=== PATIENT | female | born 1940 | race Caucasian/White ===

== ENCOUNTER 2017-03-01 18:32 | Emergency (ER) | payer MEDICARE | END 2017-03-01 19:25 | disposition home or self-care (01) | LOC: SCSER 18:32 | DX: L97.519 Non-pressure chronic ulcer of other part of right foot with unspecified severity (principal); E66.9 Obesity, unspecified; I10 Essential (primary) hypertension; Z99.2 Dependence on renal dialysis; Z79.899 Other long term (current) drug therapy | CPT/HCPCS: 99283 ==

== ENCOUNTER 2018-08-30 12:24 | Outpatient (CLI) | payer MEDICARE ==
--- NOTE | 2018-08-30 12:42 | RAD ---
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 The patient i s status post amputation of the small toe through the metatarsal phalangeal joint. No osseous erosions are seen. Mild soft tissue swelling is seen in the fourth toe. No degenerative changes are p resent. IMPRESSION: No evidence of acute osseous abnormality.
== END 2018-08-30 12:25 | disposition home or self-care (01) ==
LOC: BICRAD 12:24
DX: L97.512 Non-pressure chronic ulcer of other part of right foot with fat layer exposed (principal)

== ENCOUNTER 2018-09-18 09:23 | Outpatient (CLI) | payer MEDICARE ==
--- NOTE | 2018-09-18 10:41 | BD ---
BONE DENSITOMETRY USING DEXA: HISTORY: Postmenopausal screening for osteoporosis. FINDINGS: Lumbar Spine: BMD (g/cm2) L1 1.047 T-Score: 0.5 Z-Score: 2.8 L2 0.977 T-Score: -0.5 Z-Score: 2.1 L3 0.904 T-Score: -1.3 Z-Score: 1.4 L4 0.833 T-Score: -2.1 Z-Score: 0.7 L1-L4 0.941 T-Score: 1.0 Z-Score: 1.6 Femoral Neck: 0.622 T-Score: -2.0 Z-Score: 0.2 Total Femur: 0.686 T-Score: -2.1 Z-Score: -0.1 The 10-year fracture risk for a major osteoporotic fracture is 9% and for a hip fracture is 4.6%. Impression: Osteopenia. POS: TPC
--- NOTE | 2018-09-18 10:48 | MMO ---
Bilateral MAMMO Bilat Diag DDI+FAVIOLA. CLINICAL HISTORY: Patient is 78 years old and is seen for diagnostic exam. The patient has the following family history of breast cancer: maternal aunt and mother, at age 58. The patient has a history of kidney cancer at age 70. The patient has a history of right Excisional Biopsy in 2000 - benign. VIEWS: The views performed were: bilateral craniocaudal with tomosynthesis; bilateral mediolateral oblique with tomosynthesis; and bilateral mediolateral. FILMS COMPARED: The present examination has been compared to prior imaging studies performed at [facility] on 11/16/2010, 11/22/2011, 01/31/2013, 07/18/2014 and 09/18/2018. MAMMOGRAM FINDINGS: There are scattered fibroglandular densities. Finding 1: There are no mammographic or sonographic abnormalities in the area of palpable concern. The patient is referred back to her clinician. Negative imaging findings should not preclude biopsy if clinical findings are suspicious. Finding 2: There is an equal density, oval mass with circumscribed margins seen in the inner region of the right breast. This is a lymph node by ultrasound. Finding 3: There are vascular calcifications seen in both breasts. IMPRESSION: FINDING 1: THERE ARE NO MAMMOGRAPHIC ABNORMALITIES IN THE AREA OF PALPABLE CONCERN. THE PATIENT IS REFERRED BACK TO HER CLINICIAN. NEGATIVE IMAGING FINDINGS SHOULD NOT PRECLUDE BIOPSY IF CLINICAL FINDINGS ARE SUSPICIOUS. A ROUTINE FOLLOW-UP MAMMOGRAM IN 1 YEAR IS RECOMMENDED. THE RESULTS OF THIS EXAM WERE SENT TO THE PATIENT. ACR BI-RADS Category 2 - Benign finding MAMMOGRAPHY NOTE: 1. A negative mammogram report should not delay a biopsy if a dominant of clinically suspicious mass is present. 2. Approximately 10% to 15% of breast cancers are not detected by mammography. 3. Adenosis and dense breasts may obscure an underlying neoplasm.
--- NOTE | 2018-09-18 10:54 | ULT ---
LIMITED RIGHT BREAST ULTRASOUND: Date: 09-18-18 Provided Clinical History: Right breast palpable abnormality. Right breast nodule. FINDINGS: Limited sonographic interrogation of the upper inner right breast was performed in the region of repo rt palpable concern. The sonographic appearance of the breast tissue in this region is normal. At the 3 o'clock position of the right breast there is an intramamillary lymph node measuring 5 mm an d corresponding to the mammogram finding. IMPRESSION: 1. BIRADS category 2 - benign findings. Intramamillary lymph node is noted corresponding to the mammo gram finding. 2. No mammographic or sonographic abnormality in the region of palpable concern. Negative imaging fin dings should not preclude further evaluation of a clinically suspicious area. The patient is referred back to her clinician in this regard. POS: OFF
== END 2018-09-18 09:24 | disposition home or self-care (01) ==
LOC: BICMAMMO 09:23
PROVIDERS: ATTEND Internal Medicine
DX: Z13.820 Encounter for screening for osteoporosis (principal); N63.12 Unspecified lump in the right breast, upper inner quadrant; M85.89 Other specified disorders of bone density and structure, multiple sites; Z80.3 Family history of malignant neoplasm of breast; Z85.528 Personal history of other malignant neoplasm of kidney
CPT/HCPCS: 76642; 77066; 77080; G0279

== ENCOUNTER 2018-12-27 11:35 | Inpatient (IN) | payer MEDICARE ==
--- NOTE | 2018-12-27 12:20 | RAD ---
RIGHT ANKEL 3 VIEWS: Date: 12/27/18 HISTORY: Injury with pain. FINDINGS: Displaced bimalleolar fractures. There is fracture of both medial and lateral malleoli with displacem ent. There is subluxation of the tibiotalar joint. IMPRESSION: Displaced bimalleolar fractures with subluxation of the tibiotalar joint. POS: TPC
--- NOTE | 2018-12-27 12:21 | RAD ---
RIGHT TIBIA AND FIBULA 2 VIEWS: Date: 12/27/18 HISTORY: Injury. FINDINGS/IMPRESSION: Displaced bimalleolar fractures are seen at the ankle and are described on dedicated ankle views. The re is subluxation of the tibiotalar joint. Proximal and mid tibia and fibula appear intact. POS: TPC
[2018-12-27 13:02] LABS: #Eosinphils 0.1 thou/uL (0.0-0.7); #Lymphocytes 0.9 thou/uL (1.20-3.40); #Monocytes 0.5 thou/uL (0.11-0.59); #Neutrophils 5.3 thou/uL (1.40-6.50); %Basophils 0.4 % (0.0-1.0); %Eosinophils 2.1 % (0.0-10.0); %Lymphocytes 13.5 % (21.0-51.0); %Monocytes 6.7 % (0.0-10.0); %Neutrophils 77.4 % (42.0-75.0); Hemoglobin 10.7 g/dL (12.0-16.0); Platelet Count 191 thou/uL (130-400); Red Blood Cell (RBC) Count 3.15 mill/uL (4.20-5.40); White Blood Cell (WBC) Count 6.9 thou/uL (4.8-10.8)
[2018-12-27 13:21] LABS: ALT (SGPT) 18 U/L (8-55); AST (SGOT) 17 U/L (5-34); Albumin 3.9 g/dL (3.4-4.8); Alkaline Phosphatase 54 U/L (40-150); Anion Gap 17 mmol/L (10-20); BUN (Urea Nitrogen) 33 mg/dL (9.8-20.1); Bilirubin, Total 0.4 mg/dL (0.2-1.2); Calc. Creatinine Clearance 0 mL/min (70-130); Calcium 9.5 mg/dL (7.8-10.44); Carbon Dioxide 31 mmol/L (23-31); Chloride 95 mmol/L (98-107); Estimated GFR-MDRD 6; Globulin 3.3 g/dL (2.4-3.5); Glucose 171 mg/dL (83-110); Potassium 4.5 mmol/L (3.5-5.1); Protein, Total 7.2 g/dL (6.0-8.3); Sodium 138 mmol/L (136-145)
[2018-12-27 13:36] LABS: INR-International Normal Ratio 1.1; PTT 20.1 SEC (22.9-36.1); Prothrombin Time 14.1 SEC (12.0-14.7)
[2018-12-27] MEDS ORDERED: Fentanyl 100 MCG/2 ML VIAL ONE ×2 (13:53→17:02)
--- NOTE | 2018-12-27 14:18 | CON ---
DATE OF CONSULTATION: 12/27/2018 This is Minnie Ge PA-C dictating a report for Gibson Narvaez MD. REQUESTING PHYSICIAN: Tran CONSULTING PHYSICIAN: Dr. Gibson Narvaez. REASON FOR CONSULTATION: Right ankle fracture. HISTORY OF PRESENT ILLNESS: This is a 78-year-old female who presented to the emergency department today after a mechanical fall at home while walking to her car. She states she was on her way to obtain an MRI of her right foot for a chronic ulcerative wound on her toe when she believes that she misstepped and her ankle rolled in causing her to fall. She was placed in a splint by EMS and brought to our facility where x-rays showed a bimalleolar ankle fracture with displacement and medial shift of the tibiotalar joint. We have been consulted for this reason. Currently at bedside the patient reports that she has been seeing Dr. Tineo for her chronic ulcerative wound to her right third toe. She is on Cipro and she is also a dialysis patient. She states she receives a dose of vancomycin at each dialysis. She denies any other injuries at the time of her fall today. No head injuries, no loss of consciousness. PAST MEDICAL HISTORY: Significant for hypertension, end-stage renal disease, on dialysis Monday, Monday, Monday. PAST SURGICAL HISTORY: Includes hysterectomy, partial nephrectomy on the right in 2007, peritoneal dialysis shunt in 2014 and hernia repair. She has a fistula in the left upper extremity. SOCIAL HISTORY: The patient says she drinks socially. Denies any tobacco use or illicit drug use. She lives at home with her . FAMILY HISTORY: Reviewed and noncontributory. REVIEW OF SYSTEMS: A 10-point review of systems conducted and otherwise negative except for stated above. PHYSICAL EXAMINATION: VITAL SIGNS: Show blood pressure of a 112/77, pulse of 75, respiratory rate of 15, temperature of 98.1, and O2 saturation of 91% on room air. GENERAL: The patient is awake and alert. She is in no apparent distress. Her is present in the ER room with her. She is pleasant and cooperative with exam findings today. HEENT: Head is normocephalic and atraumatic. NECK: Supple. Trachea midline. Breathing nonlabored. EXTREMITIES: Evaluation of the right lower extremity shows a stirrup splint intact. The patient is able to move toes. Capillary refill is 3 seconds. Sensation intact distally. There is a bandage overlying the 3rd toe. This was removed for evaluation. On the dorsum of the toe, there is an ulcerative wound. This does not appear to have a bone visible beneath it. No drainage or bleeding from this site. Remainder of extremities are evaluated and no other injuries are noted. IMAGING STUDIES: Radiographic findings: Three views of the right ankle were obtained which show a displaced bimalleolar ankle fracture with medial shift of the joint space. ASSESSMENT: Right ankle bimalleolar fracture. PLAN: The patient has been n.p.o. since 8:30 this morning. We would like to go ahead and plan for surgery this afternoon. Risks, benefits, and alternatives of surgery discussed at length with the patient today. She verbalized understanding. Postoperatively, she will be admitted to [facility] where she will go to [place] 3 surgical floor. She will work with physical and occupational therapist. She will also receive dialysis tomorrow. With regard to her chronic wound, she will continue to receive her normal wound care and antibiotics while she is inpatient with us. Job ID: [id number] [facility]
[2018-12-27] MEDS ORDERED: Ondansetron ODT 4 MG TAB PO PRN (15:16)
[2018-12-27] MEDS ORDERED: Dextrose 50% Abboject 50 ML SYRINGE SLOW IVP PRN (15:16)
[2018-12-27] MEDS ORDERED: Dextrose 5% in Water 1,000 ML IV PRN (15:16)
[2018-12-27] MEDS ORDERED: HumaLOG 300 UNITS/3 ML VIAL SC PRN (15:16)
[2018-12-27] MEDS ORDERED: PHENYLEPHRINE-NS 100 MCG/ML 10 ML SYRINGE ONE (15:37)
[2018-12-27] MEDS ORDERED: Ondansetron PF 4 MG/2 ML Vial ONE (15:37)
[2018-12-27] MEDS ORDERED: ePHEDrine 50 MG/ML VIAL ONE (15:37)
[2018-12-27] MEDS ORDERED: Lidocaine 1% PF 5 ML VIAL ONE (15:37)
[2018-12-27] MEDS ORDERED: Metoclopramide HCl 10 MG/2 ML VIAL ONE (15:37)
[2018-12-27] MEDS ORDERED: PROPOFOL 200 MG/20 ML VIAL ONE (15:37)
[2018-12-27] MEDS ORDERED: Famotidine/PF 20 mg/2ml Vial ONE (16:12)
[2018-12-27] MEDS ORDERED: ceFAZolin Sodium (SDC) 2 GM/100 ML BAG ONE (16:56)
[2018-12-27] MEDS ORDERED: Clindamycin/D5W 900 mg/50 ml Premix Bag ONE (16:57)
[2018-12-27] MEDS ORDERED: Ondansetron HCl/PF 4 MG/2 ML Vial IVP PRN (18:07)
--- NOTE | 2018-12-27 18:56 | RAD ---
Intraoperative imaging of the right ankle: 12/27/2018 COMPARISON: 12/27/2018 HISTORY: Fracture status post ORIF FINDINGS: Previously noted fractures have been treated with a lateral fibular screw and plate fixatio n as well as 2 lag screws through the medial malleolus. There is anatomic alignment at the fracture sites. IMPRESSION: ORIF as detailed above.
[2018-12-27] MEDS: Acetaminophen 1,000 MG in Premix Bag 1 BAG IVPB SCH (20:16)
[2018-12-27] MEDS: Senokot S 8.6-50 MG TAB PO SCH (21:45)
[2018-12-27] MEDS: CEFAZOLIN 2 GM, Admixture Fee 1 EACH in Sodium Chloride 0.9% 100 ML IVPB SCH (21:47)
[2018-12-27 22:59] VITALS: BMI 41.1
[2018-12-28] MEDS: Acetaminophen 1,000 MG in Premix Bag 1 BAG IVPB SCH (00:05)
--- NOTE | 2018-12-28 03:55 | PRG ---
DATE OF SERVICE: 12/28/2018 SUBJECTIVE: The patient is currently on the surgical floor. She was admitted today status post a ground level fall in which she sustained a right bimalleolar ankle fracture. This evening, she underwent open reduction and internal fixation of same. She reportedly tolerated this well. Here on the surgical floor, her pain has been controlled with nonnarcotic pain medication at this time. She is tolerating liquids and she has orders to advance as tolerated. The patient is concerned about taking certain medications due to her end-stage renal disease. OBJECTIVE: VITAL SIGNS: Stable. The patient is afebrile. GENERAL: The patient is resting comfortably in bed, appears in no distress. Her postop dressing is clean, dry, and intact. ASSESSMENT/PLAN: 1. Status post ground level fall. 2. Right ankle bimalleolar fracture, status post open reduction and internal fixation of same. 3. End-stage renal disease, plan to be evaluated by Nephrology tomorrow. The patient's normal dialysis schedule is Monday, Monday, and Monday. PLAN: Plan will be to continue supportive care. Arrange her dialysis. Begin physical and occupational therapy. We will schedule her oral pain medications. We will hold NSAIDs at this time and will schedule her 50 mg of tramadol q.8 hours p.r.n. for severe pain. Otherwise, we will continue with Tylenol. DISPOSITION: Patient's disposition will be discussed tomorrow, home versus placement to a facility. Job ID: [id number]
[2018-12-28 05:41] LABS: #Eosinphils 0.1 thou/uL (0.0-0.7); #Lymphocytes 0.8 thou/uL (1.20-3.40); #Monocytes 0.7 thou/uL (0.11-0.59); #Neutrophils 5.5 thou/uL (1.40-6.50); %Basophils 0.3 % (0.0-1.0); %Eosinophils 1.4 % (0.0-10.0); %Lymphocytes 11.4 % (21.0-51.0); %Monocytes 9.8 % (0.0-10.0); %Neutrophils 77.2 % (42.0-75.0); Hemoglobin 9.2 g/dL (12.0-16.0); Mean Corpuscular HGB CONC 32.7 g/dL (32.0-36.0); Mean Corpuscular Hemoglobin 33.4 pg (27.0-31.0); Mean Platelet Volume 7.1 fL (7.4-10.4); Platelet Count 182 thou/uL (130-400); RBC Distribution Width 14.3 % (11.5-14.5); Red Blood Cell (RBC) Count 2.76 mill/uL (4.20-5.40); White Blood Cell (WBC) Count 7.1 thou/uL (4.8-10.8)
[2018-12-28] MEDS: CEFAZOLIN 2 GM, Admixture Fee 1 EACH in Sodium Chloride 0.9% 100 ML IVPB SCH ×2 (05:44→14:55)
[2018-12-28] MEDS: Acetaminophen 500 MG TAB PO SCH ×3 (05:44→17:38)
[2018-12-28 05:59] LABS: Anion Gap 20 mmol/L (10-20); BUN (Urea Nitrogen) 42 mg/dL (9.8-20.1); Calc. Creatinine Clearance 10 mL/min (70-130); Calcium 8.7 mg/dL (7.8-10.44); Carbon Dioxide 27 mmol/L (23-31); Chloride 95 mmol/L (98-107); Estimated GFR-MDRD 5; Glucose 163 mg/dL (83-110); Potassium 4.5 mmol/L (3.5-5.1); Sodium 137 mmol/L (136-145)
--- NOTE | 2018-12-28 08:35 | HP ---
HISTORY OF PRESENT ILLNESS: This is a 78-year-old female, who comes into the ER after sustained a mechanical ground level fall at home. The patient was walking in garage and tripped over some carpet and slowly slid down on floor. She did not hit her head or body on the floor. She did hit her right ankle. After the fall, she had a lot of pain from her right ankle. The pain elevated with weight bearing. No loss of consciousness or other injury. Upon arrival in the ER, patient had GCS of 15, complained of pain on her right ankle. No other associate injury reported. Vital signs stable. PAST MEDICAL HISTORY: Chronic kidney disease on dialysis 3 times a week with Dr. Hector. PAST SURGICAL HISTORY: denied SOCIAL HISTORY: The patient stays at home with her . Smoking, denied. Alcohol, social. ALLERGIES: AMOXICILLIN AND HYDRALAZINE. THE PATIENT IS OTHERWISE HEALTHY AND ABLE TO TAKE CARE OF HERSELF ON PERSONAL CARE. REVIEW OF SYSTEMS: Noncontributory as per HPI. PHYSICAL EXAMINATION: GENERAL: The patient appeared to be mildly obese, lying down comfortably. No acute distress. Pain is minimal. LUNGS: Clear bilaterally. Breathing nonlabored. HEART: Regular rate and rhythm. No murmur. ABDOMEN: Soft, nondistended. Normal bowel sounds. EXTREMITIES: Right ankle is on splint. Upper extremity; neurovascularly intact. Range of motion is normal. Left extremity; neurovascularly intact. Range of motion is normal. NEUROLOGIC: No neurology deficits. DIAGNOSES: 1. Status post ground level fall. 2. Right ankle fracture. No neurovascular compromise. 3. Chronic kidney disease, stage 5 on dialysis 3 times a week. PLAN: The patient was seen by Orthopedic. Plan to do surgery today or tomorrow. The patient will be seen in consultation by Dr. Hector on dialysis schedule. Continue pain control. Continue DVT and gastritis prophylaxis. The patient will be admitted to the surgical floor to follow up after surgery. Job ID: [id number] [facility]
[2018-12-28] MEDS ORDERED: Pantoprazole 40 MG VIAL IVP SCH (09:00)
[2018-12-28] MEDS: EPOETIN ALFA-EPBX (ESRD) 4,000 UNIT/ML VIAL SC SCH (10:09)
--- NOTE | 2018-12-28 12:04 | OP ---
DATE OF PROCEDURE: 12/27/2018 PREOPERATIVE DIAGNOSIS: Comminuted, displaced right bimalleolar ankle fracture. POSTOPERATIVE DIAGNOSIS: Comminuted, displaced right bimalleolar ankle fracture. PROCEDURE PERFORMED: Open reduction and internal fixation of right bimalleolar ankle fracture. ANESTHESIA: General. TOURNIQUET TIME: 58 minutes at 300 mmHg. IMPLANTS: Synthes distal fibular locking plate on the lateral malleolus and two 4.0 mm partially-threaded cancellous screws for the medial malleolus. COMPLICATIONS: None. DRAINS: None. SPECIMEN: None. OUTCOME: Satisfactory. INDICATIONS FOR PROCEDURE: The patient is a 78-year-old lady, who sustained a closed right bimalleolar ankle fracture following a mechanical fall at home. Upon arrival at [facility], x-rays confirmed the fracture. After discussion with the patient including risks and benefits, we decided to proceed with open reduction and internal fixation. Informed consent has been obtained. All questions answered. DESCRIPTION OF PROCEDURE: The patient was brought to the operating room, and a time-out was performed followed by induction of general anesthesia. Next, a sterile prep and drape was performed to the right lower extremity. The limb was exsanguinated with Esmarch bandage, tourniquet was inflated to 300 mmHg. Next, a vertical incision was made overlying the distal fibula after skin was sharply incised, dissection was carried down bluntly exposing the fracture. The fracture was essentially a transverse fracture at about the level of the ankle mortise, but with severe comminution. The comminution was so significant that there really was not any significant cortical keys to aid with the reduction. As such, an indirect reduction technique was utilized. A small distal fibular locking plate was affixed to the shaft of the distal fibula with two 3.5 mm cortical screws and then the distal segment was reduced to this plate and shaft construct as confirmed with AP and lateral C-arm imaging. There appeared to be muslim of fibular length and appropriate rotation. Once appropriately positioned, a total of 4 locking screws were placed through this distal fragment and then 1 additional 2.7 mm cortical screw applied at the most proximal hole in the plate. It should be noted that bone quality was extremely poor with very significant softening of bone. Next, a vertical incision was made centered over the medial malleolus after skin was sharply incised, dissection was carried down bluntly to take care to identify and retract the saphenous vein. The medial malleolus was then reduced and held in place with a bone tenaculum, but again was found to have a very soft bone. Once appropriately positioned as determined with AP and lateral C-arm imaging, 2 partially-threaded 45 mm 4.0 cancellous screws were passed from the tip of the medial malleolus obliquely into the distal tibial metaphysis. This restored a normal appearing mortise on both AP and mortise views and normal appearing x-ray on lateral view as well with a centralized talus under the tibial plafond. Both incisions were then irrigated with bulb syringe and then closed in layers with 0 Vicryl deep followed by 2-0 Vicryl and nylon for the skin. Xeroform gauze, Webril, and trilaminar short-leg splint were applied to the leg, and then the patient was transferred to recovery room in stable condition. There were no complications. She tolerated the procedure well. Job ID: [id number]
[2018-12-28] MEDS: Senokot S 8.6-50 MG TAB PO SCH ×2 (14:00→21:35)
[2018-12-28] MEDS: Polyethylene Glycol 3350 17 GM Packet PO SCH (14:00)
[2018-12-28] MEDS: Folic Acid/Vit B Comp W-C PO SCH (14:00)
[2018-12-28] MEDS: Sevelamer Carbonate 800 MG TAB PO SCH ×2 (14:01→16:31)
--- NOTE | 2018-12-28 15:29 | CON ---
DATE OF CONSULTATION: DISCUSSION: Ms. Daniels is a 78-year-old white female with known history of ESRD and we were consulted for her maintenance hemodialysis. She is undergoing hemodialysis at the present time. We are using no heparin due to the recent surgery. She was initially admitted for her right ankle fracture. She has undergone an operative procedure of ORIF. No other complaints today. REVIEW OF SYSTEMS: No chest pain. Positive for right ankle pain. No nausea. No vomiting. No diarrhea. No shortness of breath. No chest pain. No gross hematuria. No dysuria. No urinary frequency. No headache. No syncopal episode. No productive cough. No fever or chills. MEDICATIONS: Currently on; 1. Aspirin 81 mg tablet daily. 2. Sensipar 30 mg daily. 3. Flexeril 5 mg p.o. t.i.d. p.r.n. 4. Gabapentin 300 mg daily. 5. Folic acid one tablet daily. 6. DuoNeb q.4 p.r.n. 7. Humalog sliding scale. 8. MiraLAX 17 g daily. 9. Protonix 40 mg daily. 10. Tramadol 50 mg q.8 p.r.n. PAST MEDICAL HISTORY: 1. The patient has history of ESRD - on maintenance hemodialysis secondary to diabetic nephropathy. 2. Type 2 diabetes mellitus. 3. Hypertension. 4. History of obstructive sleep apnea. 5. History of right renal cancer, in remission. PAST SURGICAL HISTORY: 1. Status post partial nephrectomy. 2. Status post cuffed dialysis catheter placement. 3. Status post PD catheter placement with subsequent removal and revision. 4. Status post AV fistula placement. 5. Status post partial nephrectomy for right renal cancer. 6. Status post hysterectomy. 7. Status post upper and lower GI endoscopies. SOCIAL HISTORY: The patient is . She is a retired teacher. Lives in [place]. Education, master's degree. Two children with one . No IV drug abuse. Status post multiple blood transfusion. Sedentary lifestyle. Alcohol rarely. No history of smoking. FAMILY HISTORY: No family history of ESRD. ALLERGIES: HYDRALAZINE AND PENICILLIN. TRAUMA: Recently status post fall with right ankle fracture. IMMUNIZATION: Up-to-date. HOSPITALIZATIONS: Please see past medical history. PHYSICAL EXAMINATION: VITAL SIGNS: Blood pressure is noted at 120/62, heart rate 72, respiratory rate 18, temperature 98.5, and pulse ox 98%. GENERAL: Awake, alert, and comfortable, not in distress. SKIN: Adequate turgor. HEENT: Pinkish conjunctivae. Anicteric sclerae. NECK: No neck mass. No carotid bruits. No JVD. CHEST: No deformities. LUNGS: Clear breath sounds. No wheezing. No crackles. HEART: Normal sinus rhythm. No murmur. No gallops. No rubs. ABDOMEN: Globular, soft, and nontender. EXTREMITIES: Trace edema. Dry surgical dressing noted on the right leg area. NEUROLOGIC: Oriented to 3 spheres. Moving all extremities. No tremors. No asterixis. No ataxia. LABORATORY DATA: On 12/28/2018: White count 7.1 and hemoglobin 9.2. Sodium 137, potassium 4.5, chloride 95, carbon dioxide 27, BUN 42, creatinine 7.79, glucose 163, and calcium 8.7. On 12/27/2018, x-ray of the ankle showed displaced bimalleolar fractures. ASSESSMENT AND PLAN: 1. End-stage renal disease, stable. We will continue current Monday, Monday, and Monday hemodialysis. We will use no heparin due to the recent surgery. Fluid removal only as tolerated. 2. Anemia. Start Epogen 7500 units subcutaneously every week. 3. Status post bimalleolar fracture - status post open reduction and internal fixation, stable, doing well. Job ID: [id number]
--- NOTE | 2018-12-28 17:36 | PRG ---
DATE OF SERVICE: 12/28/2018 SUBJECTIVE: This is a 78-year-old female, who comes into the emergency room after a fall at home sustaining right ankle fracture. She underwent ORIF of right ankle fracture yesterday. She also has a history of chronic kidney disease, on dialysis 3 times a week. This morning, the patient went for dialysis. After dialysis, the patient is doing good. She tolerated regular diet, and vitals are stable. Pain is well controlled. OBJECTIVE: GENERAL: The patient is lying down comfortably in bed, in no acute distress. VITAL SIGNS: Temperature 98, heart rate 78, respiratory rate 18, O2 saturation 97% on room air, and blood pressure 145/61. LUNGS: Clear bilaterally. HEART: Regular rate and rhythm. ABDOMEN: Soft and nondistended. Normal bowel sounds. EXTREMITIES: Right extremity is on splint, neurovascularly intact. Both upper extremities and left lower extremity; normal range of motion, neurovascularly intact. NEUROLOGIC: No focal neurological deficits. LABORATORY DATA: White count 7.1, hemoglobin 9.2. Sodium 137, potassium 4.5, creatinine 7.79, glucose 163. ASSESSMENT: 1. Status post ground level fall. 2. Right ankle fracture, status post open reduction and internal fixation of the right ankle fracture, postoperative day 1. 3. Chronic kidney disease with dialysis 3 times a week. 4. Chronic anemia on chronic kidney disease is treated with Epogen weekly. PLAN: Continue supportive care. Continue pain control. Continue DVT and gastritis prophylaxis. Continue trauma bowel regimen. Continue dialysis and follow up Dr. Hector. Job ID: [id number]
[2018-12-28] MEDS: traMADol HCl 50 MG TAB PO PRN (17:43)
[2018-12-28] MEDS: Cyclobenzaprine 10 MG TAB PO PRN (21:36)
[2018-12-29] MEDS: Acetaminophen 500 MG TAB PO SCH ×5 (00:20→23:42)
--- NOTE | 2018-12-29 02:00 | PRG ---
DATE OF SERVICE: 12/29/2018 SUBJECTIVE: The patient is currently on the surgical floor. She is status post ground level fall in which she sustained a right bimalleolar fracture. She underwent open reduction and internal fixation of the same yesterday. She reportedly tolerated that procedure well. Today was her scheduled dialysis day which she underwent, but she reports that Physical Therapy attempted to work with her after her dialysis and she was extremely weak and did not progress very far with that. Currently, the patient is tolerating a diet and her pain is controlled. OBJECTIVE: VITAL SIGNS: Stable. The patient is afebrile. GENERAL: The patient is resting comfortably in bed. She is awake, alert, and conversant, has no complaints. She is resting comfortably. Her postop dressing is clean, dry, and intact. EXTREMITIES: Neurovascularly intact. ASSESSMENT/PLAN: 1. Status post ground level fall. 2. Status post open reduction and internal fixation of right bimalleolar fracture, postop day #1. 3. Chronic kidney disease with dialysis on Monday, Monday, and Monday. 4. Chronic anemia that is being treated with Epogen. PLAN: Plan will be to continue supportive care, physical and occupational therapies. Of note, the patient and I had a very lengthy, 45-minute discussion regarding placement and rehab versus skilled facilities. The patient is adamant that she preferred to go home after having a very bad experience at a skilled facility 4 years ago. I assured her that we will make recommendations, but it is ultimately her decision and her family's decision. Job ID: [id number]
[2018-12-29 06:13] LABS: #Eosinphils 0.2 thou/uL (0.0-0.7); #Lymphocytes 0.9 thou/uL (1.20-3.40); #Monocytes 0.7 thou/uL (0.11-0.59); #Neutrophils 4.9 thou/uL (1.40-6.50); %Basophils 0.7 % (0.0-1.0); %Eosinophils 2.3 % (0.0-10.0); %Lymphocytes 13.1 % (21.0-51.0); %Monocytes 10.8 % (0.0-10.0); %Neutrophils 73.1 % (42.0-75.0); Mean Corpuscular Hemoglobin 33.1 pg (27.0-31.0); Platelet Count 176 thou/uL (130-400); RBC Distribution Width 14.3 % (11.5-14.5); Red Blood Cell (RBC) Count 2.72 mill/uL (4.20-5.40); White Blood Cell (WBC) Count 6.6 thou/uL (4.8-10.8)
[2018-12-29 06:33] LABS: Anion Gap 16 mmol/L (10-20); BUN (Urea Nitrogen) 23 mg/dL (9.8-20.1); Calc. Creatinine Clearance 14 mL/min (70-130); Calcium 8.8 mg/dL (7.8-10.44); Carbon Dioxide 27 mmol/L (23-31); Chloride 97 mmol/L (98-107); Estimated GFR-MDRD 7; Glucose 142 mg/dL (83-110); Phosphorus 4.3 mg/dL (2.3-4.7); Potassium 4.2 mmol/L (3.5-5.1); Sodium 136 mmol/L (136-145)
[2018-12-29] MEDS: Sevelamer Carbonate 800 MG TAB PO SCH ×3 (08:45→17:12)
[2018-12-29] MEDS: Folic Acid/Vit B Comp W-C PO SCH (08:46)
[2018-12-29] MEDS: Aspirin 81 mg Enteric Coated Tablet PO SCH (08:48)
[2018-12-29] MEDS: Polyethylene Glycol 3350 17 GM Packet PO SCH (08:48)
[2018-12-29] MEDS: Senokot S 8.6-50 MG TAB PO SCH ×2 (08:48→19:58)
[2018-12-29] MEDS ORDERED: Cinacalcet HCl 30 MG TAB PO SCH (09:00)
[2018-12-29] MEDS ORDERED: Gabapentin 300 MG CAP PO SCH (09:00)
--- NOTE | 2018-12-29 11:27 | PRG ---
DATE OF SERVICE: 12/29/2018 SERVICE: Renal Medicine. SUBJECTIVE: Ms. Daniels is a 78-year-old white female with ESRD and currently on maintenance hemodialysis. She tolerated dialysis yesterday. She was initially admitted for bimalleolar fracture. An ORIF was done. She is doing well. We are awaiting rehab placement. The patient denies any chest pain or shortness of breath. OBJECTIVE: VITAL SIGNS: Blood pressure 110/60, heart rate 69, respiratory rate 18, temperature 98.3, and pulse ox 97%. GENERAL: Noted to be awake, alert, comfortable, not in distress. SKIN: Adequate turgor. HEENT: She has a slightly pale conjunctivae. Anicteric sclerae. NECK: No neck mass. No carotid bruits. No JVD. CHEST: No deformities. LUNGS: Clear breath sounds. No wheezing. No crackles. HEART: Normal sinus rhythm. No murmur. No gallops. No rubs. ABDOMEN: Globular, soft, nontender. EXTREMITIES: No edema. Positive for right lower leg dressing. MEDICATIONS: Medications of December 29, 2018, were reviewed. LABORATORY DATA: Laboratories of December 29, 2018; white count 6.6, hemoglobin 9. Sodium 136, potassium 4.2, chloride 97, carbon dioxide 27, BUN 23, creatinine 5.71, glucose 142, phosphorus 4.3, magnesium 2.0, calcium 8.8. ASSESSMENT/PLAN: 1. End-stage renal disease, stable, tolerating current hemodialysis regimen. No indication for any emergent hemodialysis. Continue Monday, Monday, and Monday schedule. 2. Anemia-initiate Epogen. This was done yesterday. We will recheck CBC again. 3. Status post bimalleolar fracture-status post open reduction and internal fixation, doing well. Surgery is following for possible rehab placement. 4. Continue current management. Job ID: [id number]
--- NOTE | 2018-12-29 13:48 | PRG ---
DATE OF SERVICE: 12/28/2018 SUBJECTIVE: This is a 78-year-old female, who comes to the emergency room after a fall from home and right ankle fracture. She underwent ORIF of right ankle for fracture fixation on December 27, 2018. She got scheduled dialysis yesterday. No overnight events. The patient has been doing good. Pain is well controlled. She is tolerating regular diet. Vitals are stable. She decided to go back home, but we will schedule for rehab due to her physical difficulty and her is an 80 years old gentleman. He will think about the rehab and make decision later. OBJECTIVE: GENERAL: The patient was sitting comfortably bed, in no acute distress. VITAL SIGNS: Temperature 98, heart rate 83, respiratory rate 18, O2 saturation 92% on room air, blood pressure 158/72. LUNGS: Clear bilaterally. HEART: Regular rate and rhythm.. ABDOMEN: Soft and nondistended. Normal bowel sounds. EXTREMITIES: Right extremity is on splint, neurovascularly intact. Upper extremities and left lower extremity; normal range of motion, neurovascularly intact. NEUROLOGIC: No focal neurologic deficits. ASSESSMENT: 1. Status post ground level fall. 2. Right ankle fracture, status post open reduction and internal fixation of the right ankle fracture, postoperative day 2. 3. Chronic kidney disease, on dialysis 3 times a week. 4. Chronic anemia on chronic kidney disease, treated with Epogen weekly. PLAN: Continue supportive care. Continue pain control. Continue DVT and gastritis prophylaxis. Continue trauma bowel regimen. Continue dialysis and follow up with Dr. Hector. We will cooperate with rehab screening and case management coordinator for her displacement. Patient was seen and evaluated with Dr Rodriguez on round this morning Job ID: [id number] [facility]
[2018-12-29] MEDS: Cinacalcet HCl 30 MG TAB PO SCH (17:12)
[2018-12-29] MEDS: Gabapentin 300 MG CAP PO SCH ×2 (19:58→21:38)
[2018-12-29] MEDS: traMADol HCl 50 MG TAB PO PRN (21:38)
[2018-12-29] MEDS: Cyclobenzaprine 10 MG TAB PO PRN (21:38)
--- NOTE | 2018-12-30 00:47 | PRG ---
DATE OF SERVICE: 12/30/2018 SUBJECTIVE: The patient remains on the surgical floor. She is status post a ground level fall, in which she sustained a right bimalleolar fracture. She is postop day #2, open reduction and internal fixation of that fracture. The patient is also a dialysis patient. Yesterday, she underwent dialysis and therapy tried to work with her, but was very unsuccessful. Today, though she had a much better experience and was able to do some work with Physical and Occupational Therapy. The patient reports that her pain is controlled. She is tolerating a diet. OBJECTIVE: VITAL SIGNS: Stable. The patient is afebrile. GENERAL: The patient is resting comfortably in bed. She is awake, alert, conversant. She currently has no complaints and resting comfortably. EXTREMITIES: Her splint is clean, dry, and intact. ASSESSMENT AND PLAN: 1. Status post ground level fall. 2. Status post open reduction and internal fixation of right bimalleolar fracture, postop day #2. 3. Chronic kidney disease, on dialysis. 4. Chronic anemia, stable. Plan will be to continue supportive care. Encourage physical and occupational therapy and await Case Management to discuss placement options with the patient on Monday. Job ID: [id number]
[2018-12-30] MEDS: Acetaminophen 500 MG TAB PO SCH ×3 (05:51→17:56)
[2018-12-30] MEDS: traMADol HCl 50 MG TAB PO PRN ×2 (05:52→21:57)
[2018-12-30] MEDS: Cyclobenzaprine 10 MG TAB PO PRN ×2 (05:52→21:56)
[2018-12-30] MEDS: Sevelamer Carbonate 800 MG TAB PO SCH ×3 (08:30→17:56)
[2018-12-30] MEDS: Polyethylene Glycol 3350 17 GM Packet PO SCH (09:24)
[2018-12-30] MEDS: Folic Acid/Vit B Comp W-C PO SCH (09:24)
[2018-12-30] MEDS: Senokot S 8.6-50 MG TAB PO SCH ×2 (09:24→21:00)
[2018-12-30] MEDS: Aspirin 81 mg Enteric Coated Tablet PO SCH (09:24)
--- NOTE | 2018-12-30 11:02 | PRG ---
DATE OF SERVICE: 12/30/2018 SERVICE: Renal Medicine. SUBJECTIVE: Ms. Daniels is a 78-year-old white female with ESRD and currently on maintenance hemodialysis. She was admitted due to a fall with resultant right bimanual fracture. She has undergone surgery/ORIF. Doing well. Awaiting rehab placement. No new complaints today. No chest pain or shortness of breath. OBJECTIVE: VITAL SIGNS: Blood pressure is 146/65, heart rate 72, respiratory rate 18, temperature 98.2, and pulse ox 93%. GENERAL: Noted to be awake, alert, comfortable, not in overt distress. SKIN: Adequate turgor. HEENT: She has a slightly pale conjunctivae. Anicteric sclerae. NECK: No neck mass. No carotid bruits. No JVD. CHEST: No deformities. LUNGS: Clear breath sounds. No wheezing. No crackles. HEART: Normal sinus rhythm. No murmur. No gallops. No rubs. ABDOMEN: Globular, soft, nontender. No masses. EXTREMITIES: No edema. No deformities. Positive for right leg dressing. MEDICATIONS: Medications of December 30, 2018, reviewed. LABORATORY DATA: Laboratories of December 30, 2018; glucose 135. On December 29, 2018; sodium 136, potassium 4.2, chloride 97, carbon dioxide 27, BUN 23, creatinine 5.71, glucose 142, calcium 8.8, phosphorus 4.3, magnesium 2.0. On December 29, 2018; white count 6.6, hemoglobin 9. ASSESSMENT AND PLAN: 1. Anemia. Continue weekly Epogen. P.r.n. blood transfusion. 2. End-stage renal disease, stable. No indication for any emergent hemodialysis. Tolerating said treatment. Our plan is to reschedule her back on her regular dialysis regimen tomorrow. We are using no heparin due to the recent surgery. 3. Status post bimalleolar fracture - status post surgery/open reduction and internal fixation. Awaiting rehab evaluation and possible placement. Overall, agree with current management. Job ID: [id number]
--- NOTE | 2018-12-30 16:02 | PRG ---
DATE OF SERVICE: 12/30/2018 This is Aleksandr Mckeon PA-C dictating a report for Tristan Rodriguez DO. SUBJECTIVE: This is a 78-year-old female, who came to the emergency room after a fall at home and sustained right ankle fracture. She underwent ORIF of right ankle fracture fixation on December 27, 2018. No overnight events. She has been doing good. Pain is well controlled. She is tolerating regular diet. She has been using CPAP for her sleep apnea. [employer] Developer is working for her placement in rehabilitation facility. She is working with PT and OT. OBJECTIVE: GENERAL: The patient is sitting comfortable in bed with no acute distress. VITAL SIGNS: Temperature 98.2, heart rate 69, respiratory rate 18, O2 saturation 93% on room air, and blood pressure 114/71. LUNGS: Clear bilaterally. HEART: Regular rate and rhythm. ABDOMEN: Soft and nondistended. Normal bowel sounds. EXTREMITIES: Right extremity is on splint, neurovascularly intact. Upper extremities and left lower extremity normal range of motion, neurovascularly intact. NEUROLOGIC: No focal neurology deficits. ASSESSMENT: 1. Status post ground level fall. 2. Right ankle fracture, status post open reduction and internal fixation of right ankle fracture, postoperative day 4. 3. Chronic kidney disease, on dialysis 3 times a week. 4. Chronic anemia on chronic kidney disease, treated with Epogen weekly. 5. Sleep apnea, is on CPAP. PLAN: Continue supportive care. Continue pain control. Continue DVT and gastritis prophylaxis. Continue working with PT and OT. Continue dialysis and follow up with Dr. Hector. [employer] Developer is working for placement in rehabilitation facility. The patient was seen and evaluated with Dr. Rodriguez on round this morning. Job ID: [id number] [facility]
[2018-12-30] MEDS: Cinacalcet HCl 30 MG TAB PO SCH (17:56)
[2018-12-30] MEDS: Gabapentin 300 MG CAP PO SCH (21:00)
[2018-12-31] MEDS: Acetaminophen 500 MG TAB PO SCH ×4 (00:55→17:13)
--- NOTE | 2018-12-31 01:27 | PRG ---
DATE OF SERVICE: 12/31/2018 SUBJECTIVE: The patient is currently on the surgical floor. She is status post a ground level fall when she sustained a right bimalleolar fracture. She is postop day #3 from open reduction and internal fixation of that ankle fracture. Today, the patient reports that she did not work with Physical and Occupational Therapy as no one came to work with her. She is tolerating a diet. Her pain is controlled. She is scheduled to undergo dialysis tomorrow. She is also awaiting Case Management to discuss placement options for her also. PHYSICAL EXAMINATION: VITAL SIGNS: Stable. The patient is afebrile. GENERAL: The patient is resting comfortably in bed. She is awake, alert, conversant, has no complaints other than not being able to work with therapy today. She is tolerating a diet. She appears comfortable and in no distress. Her splint is clean, dry, and intact. ASSESSMENT: 1. Status post ground level fall. 2. Postoperative day #3 status post open reduction and internal fixation of right bimalleolar fracture. 3. Chronic kidney disease, on dialysis, scheduled for Monday, Monday, and Monday. 4. Chronic anemia, stable. PLAN: Plan will be to continue her supportive care. I have asked her nurse to pass along to the day nurse if possible to get the therapist to work with her immediately after breakfast prior to her going to dialysis. The patient is known to be extremely weak after dialysis and would not be able to benefit greatly from therapy after dialysis. Job ID: [id number]
[2018-12-31] MEDS: Aspirin 81 mg Enteric Coated Tablet PO SCH (08:34)
[2018-12-31] MEDS: Folic Acid/Vit B Comp W-C PO SCH (08:34)
[2018-12-31] MEDS: Polyethylene Glycol 3350 17 GM Packet PO SCH (08:37)
[2018-12-31] MEDS: Sevelamer Carbonate 800 MG TAB PO SCH ×3 (08:37→17:13)
[2018-12-31] MEDS: Senokot S 8.6-50 MG TAB PO SCH ×2 (08:37→21:24)
--- NOTE | 2018-12-31 09:37 | PRG ---
DATE OF SERVICE: 12/31/2018 SUBJECTIVE: Ms. Daniels is a 78-year-old white female with ESRD, who was initially admitted for a right bimalleolar fracture. She underwent a right ankle ORIF. Doing well. We are following her up for a maintenance hemodialysis. She is tolerating her current dialysis regimen. I have scheduled her for regular dialysis of 3.5 hours today. No other complaints. The patient denies any chest pain or shortness of breath. OBJECTIVE: VITAL SIGNS: Blood pressure 129/80, heart rate 68, respiratory rate 13, temperature 98, and pulse ox 92%. GENERAL: Noted to be awake, alert, and comfortable, not in distress. SKIN: Adequate turgor. HEENT: She has a slightly pale conjunctivae. Anicteric sclerae. NECK: No neck mass. No carotid bruits. No JVD. CHEST: No deformities. LUNGS: Clear breath sounds. No wheezing. No crackles. HEART: Normal sinus rhythm. No murmurs. No gallops. No rubs. ABDOMEN: Globular, soft, and nontender. No masses. EXTREMITIES: No edema. Positive for right foot dressing. MEDICATIONS: Medications of December 31, 2018, reviewed. LABORATORY DATA: Laboratories of December 29, 2018, white count 6.6, hemoglobin 9, and hematocrit 28.2. Sodium 136, potassium 4.2, chloride 97, carbon dioxide 27, BUN 23, creatinine 5.71, glucose 142, phosphorus 4.3, and magnesium 2. December 31, 2018, glucose 155. ASSESSMENT AND PLAN: 1. End-stage renal disease, stable. Continuing Monday, Monday, and Monday hemodialysis. Fluid removal only as tolerated. 2. Anemia. Continuing weekly Epogen. Recheck CBC in a.m. 3. Status post bimalleolar fracture - the patient is status post a right foot surgery/open reduction and internal fixation tolerated said surgery. Awaiting rehab placement. We will recheck CBC and basic metabolic in a.m. Job ID: [id number]
[2018-12-31] MEDS: Midodrine HCl 5 MG TAB PO PRN (12:02)
--- NOTE | 2018-12-31 12:58 | PQF ---
BRENNEN HELMSMAILE [id number] SURG B- [id number] CLINICAL DOCUMENTATION IMPROVEMENT CLARIFICATION FORM: ICD-10 Updated PLEASE DO AN ADDENDUM TO THE PROGRESS NOTE WITH ANY DOCUMENTATION UPDATES OR ADDITIONS AND CARRY THROUGH TO DC SUMMARY. THANK YOU. DATE: 12/31, 01/01, 01/02 ATTN: DR. MAILE ONEAL Please exercise your independent, professional judgment in responding to the clarification form. Clinical indicators are provided on the bottom of this form for your review. Please check appropriate box(s): BMI > 40 with associated diagnosis of: (check one) [ x ] Morbid (Severe) Obesity [ ] Due to excess calories [ ] with Alveolar Hypoventilation (Pickwickian syndrome) [ ] Overweight [ ] Obesity [ ] Other diagnosis [ ] Unable to determine In addition, please specify: Present on Admission (POA): [x ] Yes [ ] No [ ] Unable to Determine For continuity of documentation, please document condition throughout progress notes and discharge summary. Thank You. BMI < 19 Under weight 19 - 24.9 Healthy 25.0 - 29.9 Slightly Overweight 30.0 - 34.9 Obese 35.0 - 39.9 Severely Obese 40.0 and Over Morbidly Obese CLINICAL INDICATORS - SIGNS / SYMPTOMS / LABS BMI: 41.2 H&P 12/27 (DISLA): PHY EXAM: GENERAL: THE PATIENT APPEARED TO BE MILDLY OBESE RISKS: DM II HTN CHRONIC ULCER R 3RD TOE TREATMENT: NUTRITION ASSESSMENT (12/29) WOUND CARE CONSULT (12/30) THANK YOU! Erica (This form is maintained as a part of the permanent medical record) 2014 [employer]. All Rights Reserved Erica Villarreal RN, BSN [email or web address] Office: [phone] [facility]
[2018-12-31] MEDS: Cyclobenzaprine 10 MG TAB PO PRN (13:52)
[2018-12-31] MEDS: traMADol HCl 50 MG TAB PO PRN (13:53)
--- NOTE | 2018-12-31 17:45 | PRG ---
DATE OF SERVICE: 12/31/2018 SUBJECTIVE: This is a 78-year-old female, who come into the emergency room after a fall at home, sustained right ankle fracture. She underwent ORIF of right ankle fracture fixation on December 27, 2018. She reports no overnight events. She has been doing good. She went to dialysis today. Her pain is well controlled. She is tolerating regular diet. She has been using CPAP to treat her sleep apnea. tool worker is working with her on placement. Information from case management specialist shared that she might consider SNF due to personal reference. OBJECTIVE: GENERAL: This patient is lying down comfortably in bed, in no acute distress. VITAL SIGNS: Temperature 98, pulse 69, respiratory rate 14, O2 saturation 93 on room air, blood pressure 110/50. LUNGS: Clear bilaterally. HEART: Regular rate and rhythm. ABDOMEN: Soft, nondistended. Normal bowel sounds. EXTREMITIES: Right extremity is on splint and dressing is dry, clean, intact. Neurovascularly intact. NEUROLOGIC: No focal neurologic deficits. ASSESSMENT: 1. Status post ground level fall. 2. Right ankle fracture status post open reduction and internal fixation of right ankle fracture, postop day 5. 3. Chronic kidney disease, on dialysis 3 times a week. 4. Chronic anemia on chronic kidney disease, treated with Epogen weekly. 5. Sleep apnea, she is on CPAP. PLAN: Continue supportive care. Continue pain control. Continue DVT, gastritis prophylaxis. Continue to work with PT, OT. Continue dialysis and follow up with Dr. Hector. tool worker is working for placement in SNF per the patient's preference. Job ID: [id number] [facility]
[2018-12-31] MEDS: Cinacalcet HCl 30 MG TAB PO SCH (19:14)
[2018-12-31] MEDS: Gabapentin 300 MG CAP PO SCH (21:24)
[2019-01-01] MEDS: Acetaminophen 500 MG TAB PO SCH ×5 (00:02→23:28)
--- NOTE | 2019-01-01 01:42 | PRG ---
DATE OF SERVICE: SUBJECTIVE: The patient remains on the surgical floor. She is status post ground level fall, in which she sustained a right bimalleolar fracture. She has undergone open reduction and internal fixation of the same. She is slowly progressing with physical and occupational therapy due to the patient's dialysis treatment, but she is currently awaiting placement. Otherwise, she is tolerating a diet. Her pain is controlled. Her bowel function has returned. OBJECTIVE: VITAL SIGNS: Stable. The patient is afebrile. GENERAL: The patient is resting comfortably in bed. Her, her , and I had a lengthy conversation again about placement, and hopefully the Case Management team will be able to get her placed soon. The patient appears comfortable, in no distress. ASSESSMENT: 1. Status post ground level fall. 2. Status post open reduction and internal fixation of bimalleolar right ankle fracture. 3. Chronic kidney disease, on dialysis, scheduled Monday, Monday, and Monday. 4. Chronic anemia, stable. PLAN: Plan will be to continue her supportive care. Encourage physical and occupational therapy, and await final placement decision. Job ID: [id number]
[2019-01-01 07:19] LABS: #Eosinphils 0.2 thou/uL (0.0-0.7); #Lymphocytes 1.1 thou/uL (1.20-3.40); #Monocytes 0.7 thou/uL (0.11-0.59); #Neutrophils 5.1 thou/uL (1.40-6.50); %Basophils 0.5 % (0.0-1.0); %Eosinophils 3.4 % (0.0-10.0); %Lymphocytes 15.4 % (21.0-51.0); %Monocytes 9.1 % (0.0-10.0); %Neutrophils 71.6 % (42.0-75.0); Hemoglobin 9.2 g/dL (12.0-16.0); Mean Corpuscular HGB CONC 33.3 g/dL (32.0-36.0); Mean Corpuscular Hemoglobin 33.9 pg (27.0-31.0); Mean Platelet Volume 6.9 fL (7.4-10.4); Platelet Count 230 thou/uL (130-400); Red Blood Cell (RBC) Count 2.71 mill/uL (4.20-5.40); White Blood Cell (WBC) Count 7.2 thou/uL (4.8-10.8)
[2019-01-01 07:36] LABS: Anion Gap 18 mmol/L (10-20); BUN (Urea Nitrogen) 31 mg/dL (9.8-20.1); Calc. Creatinine Clearance 12 mL/min (70-130); Calcium 9.1 mg/dL (7.8-10.44); Carbon Dioxide 27 mmol/L (23-31); Chloride 98 mmol/L (98-107); Estimated GFR-MDRD 6; Glucose 111 mg/dL (83-110); Potassium 4.6 mmol/L (3.5-5.1); Sodium 138 mmol/L (136-145)
[2019-01-01] MEDS: Sevelamer Carbonate 800 MG TAB PO SCH ×3 (08:30→17:44)
[2019-01-01] MEDS: Aspirin 81 mg Enteric Coated Tablet PO SCH ×2 (09:25→20:19)
[2019-01-01] MEDS: Senokot S 8.6-50 MG TAB PO SCH ×3 (09:25→20:19)
[2019-01-01] MEDS: Folic Acid/Vit B Comp W-C PO SCH (09:26)
--- NOTE | 2019-01-01 09:28 | PRG ---
DATE OF SERVICE: 01/01/2019 SUBJECTIVE: Ms. Daniels is a 78-year-old white female, who was admitted for right ankle fracture - bimalleolar fracture and underwent an ORIF. Doing well. We are following her up for a maintenance hemodialysis. She underwent dialysis yesterday without any difficulty. She tolerated said treatment. This morning, she is feeling better. No chest pain or shortness of breath. She is also undergoing physical therapy. OBJECTIVE: VITAL SIGNS: Blood pressure is 127/61, heart rate 68, respiratory rate 16, temperature 98.5, and pulse ox 94%. GENERAL: Noted to be awake, alert, comfortable, not in distress. SKIN: Adequate turgor. HEENT: She has a slightly pale conjunctivae. Anicteric sclerae. NECK: No neck mass. No carotid bruits. No JVD. CHEST: No deformities. LUNGS: Clear breath sounds. HEART: Normal sinus rhythm. No murmur. No gallops. No rubs. ABDOMEN: Globular, soft, and nontender. No masses. EXTREMITIES: No edema. No deformities. Right foot dressing noted. MEDICATIONS: Medications of January 01, 2019, reviewed. LABORATORY DATA: Laboratories of January 01, 2019, white count 7.2 and hemoglobin 9.2. Sodium 138, potassium 4.6, chloride 98, carbon dioxide 27, BUN 31, creatinine 6.59, glucose 111, and calcium 9.1. ASSESSMENT AND PLAN: 1. End-stage renal disease, stable. Continue current hemodialysis regimen, tolerating said treatment. No indication for any acute dialysis. 2. Anemia. Continuing weekly Epogen. 3. Status post bimalleolar fracture - the patient underwent open reduction and internal fixation, doing well. 4. Awaiting rehab placement. Job ID: [id number]
[2019-01-01] MEDS: Polyethylene Glycol 3350 17 GM Packet PO SCH (09:29)
[2019-01-01] MEDS: Cinacalcet HCl 30 MG TAB PO SCH (17:43)
[2019-01-01] MEDS: Gabapentin 300 MG CAP PO SCH (20:19)
--- NOTE | 2019-01-01 21:46 | PRG ---
DATE OF SERVICE: 01/01/2019 SUBJECTIVE: The patient was seen this evening, sitting up in bed with no signs of acute distress. Nursing at bedside was changing the dressing of the chronic ulcer on her right toe. The patient did report she sees Wound Care and has seen Dr. Tineo in the outpatient basis for this wound. She was not initially concerned about the wounds during this hospital admission and was more concerned about her right ankle fracture, however, she would like us to contact Dr. Tineo as he was planning MRI for evaluation of this toe wound and she had previously been receiving vancomycin during dialysis. She would like for us to see if he would like us to continue that. Otherwise, the patient continues to work with Physical and Occupational Therapy. Eating and drinking without difficulties, having regular bowel movements and voiding minimally as she is on dialysis. She does use her CPAP at night and is pending placement at acute rehab. OBJECTIVE: VITAL SIGNS: Stable and afebrile. PULMONARY: Equal chest rise and fall. Clear breath sounds bilaterally. CARDIAC: Regular rate and rhythm. No murmurs, gallops, or rubs. EXTREMITIES: 2+ pulses in all extremities. Right lower extremity dressing is clean, dry, and intact. There is about 1.5 to 2 cm round ulcer on the patient's right fourth toe, for which she is getting dressing changes by nursing staff. ASSESSMENT: 1. Status post ground level fall. 2. Right ankle fracture status post open reduction and internal fixation. 3. Chronic kidney disease on dialysis Monday, Monday, and Monday. 4. Chronic anemia, treated with weekly Epogen. 5. Sleep apnea. PLAN: Continue supportive care and pain control as well as DVT prophylaxis. Continue working physical and occupational therapy. Continue dialysis as previously scheduled. We will ask the day trauma team to contact Dr. Tineo for further recommendations and updates for antibiotics for the patient's chronic right toe ulcer. It does not appear infected at this time, but she was previously receiving vancomycin with her dialysis. Job ID: [id number]
[2019-01-02] MEDS: Acetaminophen 500 MG TAB PO SCH ×4 (05:32→22:02)
[2019-01-02] MEDS: Sevelamer Carbonate 800 MG TAB PO SCH ×3 (08:00→17:38)
[2019-01-02] MEDS: Aspirin 81 mg Enteric Coated Tablet PO SCH ×2 (08:00→20:13)
[2019-01-02] MEDS: Polyethylene Glycol 3350 17 GM Packet PO SCH (08:00)
[2019-01-02] MEDS: Folic Acid/Vit B Comp W-C PO SCH (08:00)
[2019-01-02] MEDS: Senokot S 8.6-50 MG TAB PO SCH ×2 (08:00→20:12)
--- NOTE | 2019-01-02 08:44 | PRG ---
DATE OF SERVICE: 01/02/2019 SERVICE: Renal Medicine. SUBJECTIVE: Ms. Daniels is a 78-year-old white female with ESRD and followed up by the Renal Service for her maintenance hemodialysis. She is undergoing hemodialysis at this moment. She is tolerating said treatment. She was initially admitted due to right foot trauma, where she developed bimalleolar fracture and underwent subsequent surgery-ORIF. Doing well. Awaiting rehab placement. No complaints today. No chest pain or shortness of breath. OBJECTIVE: VITAL SIGNS: Blood pressure 109/65, heart rate 65, respiratory rate 12, temperature 98.1. GENERAL: Noted to be awake, alert, comfortable, not in distress. SKIN: Adequate turgor. HEENT: She has slightly pale conjunctivae. Anicteric sclerae. NECK: No neck mass. No carotid bruits. No JVD. CHEST: No deformities. LUNGS: Clear breath sounds. HEART: Normal sinus rhythm. No murmurs, no gallops, no rubs. ABDOMEN: Globular, soft, nontender. No masses. EXTREMITIES: No edema. No deformities. Positive for right foot dressing. MEDICATIONS: Medications of January 02, 2019, reviewed. LABORATORY DATA: Laboratories of January 01, 2019; white count 7.2, hemoglobin 9.2. January 01, 2019; sodium 138, potassium 4.6, chloride 98, carbon dioxide 27, BUN 31, creatinine 6.59, glucose 111, calcium 9.1. ASSESSMENT AND PLAN: 1. End-stage renal disease, stable. Continue current Monday, Monday, and Monday hemodialysis. Continue said treatment, tolerating said dialysis. Fluid removal only as tolerated. 2. Anemia on weekly Epogen. 3. Status post right foot trauma/bimalleolar fracture-stable, status post open reduction and internal fixation. Awaiting rehab placement. Job ID: [id number]
[2019-01-02] MEDS: traMADol HCl 50 MG TAB PO PRN (14:01)
[2019-01-02] MEDS: Cyclobenzaprine 10 MG TAB PO PRN (14:03)
--- NOTE | 2019-01-02 15:10 | PRG ---
DATE OF SERVICE: 01/02/2019 This is Susan Pearl NP dictating a report for Tristan Rodriguez DO. SUBJECTIVE: The patient was seen this evening after receiving dialysis. The patient remains on the surgical floor. The patient currently reports some increased pain to her right ankle as she missed a dose of her tramadol due to dialysis. The patient voices no other complaints at this time. The patient reports that she last saw Dr. Tineo for her chronic right toe infection on December 19. The patient was also seeing Wound Care in [place] for this chronic toe infection and was receiving vancomycin after dialysis. The patient did complete 6 weeks of this vancomycin. The patient continues to await placement to inpatient rehab. The patient's nurse reports that she did refuse her sliding scale insulin today. OBJECTIVE: VITAL SIGNS: Blood pressure 109/65, temperature 98.1, pulse 65, respirations 12, and SpO2 of 95% on room air. GENERAL: The patient is awake, alert, in no distress. Reports moderate pain. PULMONARY: Equal chest rise and fall, no respiratory distress. CARDIAC: Regular rate, regular rhythm. EXTREMITIES: 2+ pulses in all extremities. Right lower extremity with dressing clean, dry, and intact, also to right 4th toe wound. ASSESSMENT: 1. Status post ground level fall. 2. Right ankle fracture status post open reduction and internal fixation, postop day #6. 3. Chronic kidney disease, on dialysis Monday, Monday, and Monday. 4. Chronic anemia, treated weekly with Epogen. 5. Sleep apnea. 6. 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 7. History of hypertension and diabetes. PLAN: Continue supportive care and pain control. Continue DVT prophylaxis. Continue to work with Physical and Occupational Therapy. Continue dialysis on Monday, Monday, and Monday. Dr. Tineo was called about the patient's right 4th toe chronic infection and made aware that the patient is in the hospital and did not receive the MRI that he had recommended on her last visit. Dr. Tineo states that he will see the patient. I also spoke with the wound care provider that the patient has been seeing, who referred the patient to Dr. Tineo, who states that the patient did complete 6 weeks of IV vancomycin after her dialysis. The plan was discussed with Dr. Rodriguez, who agrees. Job ID: [id number]
[2019-01-02] MEDS ORDERED: HOLD VANCOMYCIN FOR LEVEL >20 FS SCH (17:00)
[2019-01-02] MEDS ORDERED: Vancomycin HCl 750 MG in Sodium Chloride 0.9% 250 ML 250 ML IVPB SCH (17:00)
[2019-01-02] MEDS ORDERED: Vancomycin HCl 1 GM in Premix Bag 1 BAG IVPB SCH (17:00)
[2019-01-02] MEDS ORDERED: Vancomycin Sliding Scale 1 EACH FS ONE (17:00)
[2019-01-02] MEDS ORDERED: Vancomycin HCl 1.25 GM in Sodium Chloride 0.9% 250 ML 250 ML IVPB SCH (17:00)
[2019-01-02] MEDS ORDERED: Vancomycin HCl 1.5 GM in Sodium Chloride 0.9% 250 ML 300 ML IVPB SCH (17:00)
[2019-01-02] MEDS: Cinacalcet HCl 30 MG TAB PO SCH (17:34)
[2019-01-02] MEDS: Gabapentin 300 MG CAP PO SCH (20:13)
[2019-01-02] MEDS: Cipro 250 MG TAB PO SCH (20:13)
[2019-01-02] MEDS ORDERED: Acetaminophen/Codeine 30-300mg Tablet PO SCH (21:00)
--- NOTE | 2019-01-02 22:07 | PRG ---
DATE OF SERVICE: SUBJECTIVE: The patient was seen today during the evening rounds sitting up at the edge of the bed. She was playing cards with her . At the time of my evaluation, the patient reported 6/10 pain that has not been adequately treated throughout the day. She reported she went to dialysis earlier this morning and did miss her dose of pain medications at her regular scheduled time. Since that time, she has not been able to achieve adequate pain control with her current regimen. OBJECTIVE: VITAL SIGNS: The patient is hemodynamically stable and afebrile. PULMONARY: Equal chest rise and fall. Clear breath sounds bilaterally. CARDIAC: Regular rate and rhythm. EXTREMITIES: 2+ pulses in all extremities. Right lower extremity dressing is clean, dry, and intact with wound dressing to her right lower extremity toe in place. ASSESSMENT: 1. Status post ground level fall. 2. Right ankle fracture, status post repair. 3. Chronic wound to right toe. 4. History of end stage renal disease, sleep apnea, diabetes, hypertension, right renal cancer, and chronic anemia. PLAN: Continue supportive care and DVT prophylaxis as previously scheduled. We will give the patient a 1 time dose of Tylenol No.3 this evening to achieve appropriate pain control as the patient is not able to rest. Dr. Tineo did see the patient today and did order vancomycin with dialysis. He did also order an MRI of the right lower extremity for further evaluation of that wound. She is pending placement in acute rehab facility. Job ID: [id number]
[2019-01-03 04:48] LABS: #Eosinphils 0.3 thou/uL (0.0-0.7); #Lymphocytes 1.8 thou/uL (1.20-3.40); #Monocytes 0.6 thou/uL (0.11-0.59); #Neutrophils 4.6 thou/uL (1.40-6.50); %Basophils 0.7 % (0.0-1.0); %Eosinophils 3.8 % (0.0-10.0); %Lymphocytes 24.5 % (21.0-51.0); %Monocytes 7.7 % (0.0-10.0); %Neutrophils 63.4 % (42.0-75.0); Hemoglobin 10.2 g/dL (12.0-16.0); Mean Corpuscular HGB CONC 33.6 g/dL (32.0-36.0); Mean Corpuscular Hemoglobin 33.6 pg (27.0-31.0); Platelet Count 200 thou/uL (130-400); RBC Distribution Width 13.9 % (11.5-14.5); Red Blood Cell (RBC) Count 3.02 mill/uL (4.20-5.40); White Blood Cell (WBC) Count 7.2 thou/uL (4.8-10.8)
[2019-01-03] MEDS: Cipro 250 MG TAB PO SCH ×2 (05:46→20:25)
[2019-01-03] MEDS: Acetaminophen 500 MG TAB PO SCH ×3 (05:46→21:05)
[2019-01-03] MEDS: Sevelamer Carbonate 800 MG TAB PO SCH ×3 (08:39→17:03)
[2019-01-03] MEDS: Aspirin 81 mg Enteric Coated Tablet PO SCH ×2 (08:42→20:24)
[2019-01-03] MEDS: Folic Acid/Vit B Comp W-C PO SCH (08:42)
[2019-01-03] MEDS: Polyethylene Glycol 3350 17 GM Packet PO SCH (08:42)
--- NOTE | 2019-01-03 08:42 | CON ---
DATE OF CONSULTATION: 01/02/2019 REASON FOR CONSULTATION: Followup of right foot osteomyelitis or possible osteomyelitis. HISTORY OF PRESENT ILLNESS: Ms. Daniels is a 78-year-old lady, history of diabetic nephropathy with end-stage renal disease, on hemodialysis through an AV fistula, whom I had seen in November when she presented with a chronic ulcer in the dorsal aspect of the right fourth toe and had a bone scan with increased uptake. We had started her on Cipro and vancomycin and then ordered an MRI to evaluate the area further. Unfortunately, on the way to the MRI, she fell and broke her right ankle and was admitted, had an open reduction and internal fixation. She has moderate pain there, but no headaches. No visual symptoms, sore throat, odynophagia, dysphagia. No cough or sputum production. No chest pain. No abdominal pain. No diarrhea. No voiding issues. PAST MEDICAL HISTORY: ESRD due to type 2 diabetes with hemodialysis as a modality of treatment through an AV fistula, hypertension, BECKY, renal cancer in remission after resection, chronic right foot ulcer, possible osteomyelitis, prior peritoneal dialysis catheter placement and removal, AV fistula placement, hemodialysis catheter placement and removal. ALLERGIES: HYDRALAZINE, PENICILLIN. SOCIAL HISTORY: Retired. FAMILY HISTORY: unremarkable CURRENT MEDICATIONS: 1. Tylenol. 2. DuoNeb. 3. Ecotrin. 4. Sensipar. 5. Flexeril. 6. Dextrose. 7. Epoetin. 8. Gabapentin. 9. Insulin. 10. Midodrine. 11. Pantoprazole. 12. Tramadol. 13. Vitamin B. PHYSICAL EXAMINATION: VITAL SIGNS: Essentially normal. EXTREMITIES: She has the right lower extremity with a splint and dressed, and the right fourth toe has the dorsal ulcer round-shaped about 0.3 cm and a little bit of discoloration surrounding it. The toes mildly swollen. There is no lymphadenopathy. HEENT: Noncontributory. LUNGS: Clear. HEART: S1, S2. Regular rate. No S3 or S4. ABDOMEN: Soft, not distended. No bladder distention. : She does not void, does not have significant urine output. NEURO: Not focal. Cognitive function appears to be normal. LABORATORY DATA: Sodium 138, creatinine 6.59. Liver profile normal. Albumin 3.9. LABORATORY DATA: White cell count 7.2, hemoglobin 9.2, platelets 230, 71% neutrophils. INR 1.1. IMAGING DATA: There is a tibia-fibula x-ray with a displaced bimalleolar fractures and the ankle x-ray. ASSESSMENT: 1. Type 2 diabetes with end-stage renal disease. 2. Chronic ulcer, dorsal aspect of the right fourth toe with positive uptake on bone scan. 3. Fracture of right ankle, bimalleolar. DISCUSSION: We will perform the MRI while she is in the hospital to assess the right fourth toe. If there are positive findings, then we will continue Cipro and vancomycin sliding scale through dialysis. If not, then discontinue antimicrobial therapy. She has been receiving treatment already since I saw her at the end of November. She has received probably around 2 weeks approximately of therapy thus far. So we would have another 4 weeks to go if we decide to continue it depending on MRI findings. Job ID: [id number] MTDD
[2019-01-03] MEDS: traMADol HCl 50 MG TAB PO PRN ×2 (08:48→21:06)
[2019-01-03] MEDS: Senokot S 8.6-50 MG TAB PO SCH ×2 (08:48→20:24)
--- NOTE | 2019-01-03 09:16 | PRG ---
DATE OF SERVICE: 01/03/2019 SUBJECTIVE: Ms. Daniels is a 78-year-old white female, who came in with bimalleolar fracture, underwent ORIF and we are following her up for maintenance hemodialysis. She is doing well from a dialysis point of view. She received dialysis yesterday without any difficulty. No new complaints. No chest pain or shortness of breath. OBJECTIVE: VITAL SIGNS: Blood pressure 114/65, heart rate 68, respiratory rate 16, temperature 98 and pulse ox 95%. GENERAL: Awake, alert, sitting comfortable, obese, not in distress. SKIN: Adequate turgor. HEENT: She has pinkish conjunctivae. Anicteric sclerae. No neck mass. No carotid bruits. No JVD. CHEST: No deformities. LUNGS: Clear breath sounds. HEART: Normal sinus rhythm. No murmur. No gallops. No rubs. ABDOMEN: Globular, soft, nontender. No masses. EXTREMITIES: No edema. No deformities. She has a right leg dressing. MEDICATIONS: Medications of January 03, 2019, reviewed. LABORATORY DATA: Of January 03, 2019; white count 7.2, hemoglobin 10.2. January 01, 2019; potassium 4.6, BUN 31, creatinine 6.59, calcium 9.1. ASSESSMENT AND PLAN: 1. End-stage renal disease, stable. We will continue current hemodialysis regimen. No changes to be made with the current dialysis regimen. Fluid removal is being tolerated. 2. Anemia, continuing weekly Epogen. 3. Status post bimalleolar fracture/status post open reduction internal fixation, awaiting placement. Job ID: [id number]
--- NOTE | 2019-01-03 10:41 | PRG ---
DATE OF SERVICE: 01/03/2019 SUBJECTIVE: Neema is postop day #7 from a right ankle bimalleolar fracture open reduction and internal fixation. Her pain has improved, and her splint currently fits well. She has no complaints of discomfort or pain to speak of. PHYSICAL EXAMINATION: Splint is dry, intact. She is neurovascularly intact in all digits with full digital excursion. Good sensation in all digits. No strike through or bleeding is identified. IMPRESSION: A 78-year-old female, postop day #7, right ankle open reduction and internal fixation for a bimalleolar fracture. PLAN: Continue current care. Continue strict nonweightbearing and follow up in clinic for cast removal and staple removal within 5 to 7 days of discharge. Job ID: [id number]
--- NOTE | 2019-01-03 16:03 | MRI ---
MRI Lower Ext No Jt Rt WO Con History: Osteomyelitis. Comparison: Radiograph August 30, 2018 Findings: Bones: On the T1 weighted imaging sequence there are no foci of marrow signal replacement t o suggest osteomyelitis. No significant edema. 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 There are midfoot degenerative changes. Soft tissues: Soft tissue swelling along the second and third toes along the distal phalanges suggest ing cellulitis. There is also abnormal edema and adventitial bursa formation along the plantar aspect of the great toe metatarsal phalangeal joint. Muscles: Significant muscle atrophy. Impression: No evidence of osteomyelitis. Extensive chronic findings.
--- NOTE | 2019-01-03 16:16 | PRG ---
DATE OF SERVICE: 01/03/2019 SUBJECTIVE: This is a 78-year-old female, who remains on the surgical floor. The patient reports no overnight events. The patient reports a good appetite and voices no concerns at this time. The patient's pain is well controlled at this time. The patient states she is ready to work with Physical Therapy today. OBJECTIVE: VITAL SIGNS: Temperature 98.0, pulse 68, respirations 16, SpO2 of 95% on room air, and blood pressure 110/65. GENERAL: The patient awake and alert, in no distress, sitting up in the chair. PULMONARY: Equal chest rise and fall, in no respiratory distress. CARDIAC: Regular rate and regular rhythm. EXTREMITIES: 2+ pulses in all extremities. Right lower extremity dressing clean, dry, and intact. Also, right fourth toe wound dressing intact. ASSESSMENT: 1. Status post ground level fall. 2. Right ankle fracture postop day #6, open reduction and internal fixation. 3. Chronic kidney disease on dialysis Monday, Monday, and Monday. 4. Chronic anemia, treated weekly with Epogen. 5. Sleep apnea. 6. Chronic right fourth toe infection. 7. History of hypertension and diabetes. PLAN: Continue supportive care and pain control. Continue to have the patient work with Physical and Occupational Therapy. The patient is pending placement to inpatient rehab. The patient was examined with Dr. Rodriguez this morning during rounds. Job ID: [id number]
[2019-01-03] MEDS: Cinacalcet HCl 30 MG TAB PO SCH (17:33)
[2019-01-03] MEDS: Gabapentin 300 MG CAP PO SCH (20:24)
--- NOTE | 2019-01-04 01:30 | PRG ---
DATE OF SERVICE: 01/03/2019 SUBJECTIVE: The patient was seen today during evening rounds. She was lying in bed with no signs of acute distress. She reported that her pain was much better controlled today and she had a general overall better day. She had no complaints or concerns at the time of my evaluation. OBJECTIVE: VITAL SIGNS: The patient is afebrile, and hemodynamically stable. GENERAL: Well-appearing elderly female, sitting up in bed with no signs of acute distress. PULMONARY: Equal chest rise and fall. Clear breath sounds bilaterally. No signs of acute respiratory distress. CARDIAC: Regular rate and rhythm. ABDOMEN: Soft, nontender, nondistended. EXTREMITIES: Gross motor and sensation are intact. Right lower extremity, with splint in place that is clean, dry, and intact. Gross motor and sensation are intact. NEURO: GCS is 15. Gross motor and sensation are intact. ASSESSMENT: 1. Status post mechanical fall from standing. 2. Chronic right toe wound. 3. History of end-stage renal disease, on dialysis, sleep apnea, diabetes, hypertension, right renal cancer, and chronic anemia. PLAN: The patient's pain is much better controlled today. We will continue with current regimen. She is pending placement in acute rehab. She is set to complete dialysis again tomorrow. Job ID: [id number]
[2019-01-04 07:28] LABS: #Eosinphils 0.2 thou/uL (0.0-0.7); #Lymphocytes 1.7 thou/uL (1.20-3.40); #Monocytes 0.4 thou/uL (0.11-0.59); #Neutrophils 4.1 thou/uL (1.40-6.50); %Basophils 0.5 % (0.0-1.0); %Eosinophils 3.5 % (0.0-10.0); %Lymphocytes 25.9 % (21.0-51.0); %Monocytes 6.6 % (0.0-10.0); %Neutrophils 63.4 % (42.0-75.0); Hemoglobin 9.1 g/dL (12.0-16.0); Mean Corpuscular HGB CONC 32.9 g/dL (32.0-36.0); Mean Corpuscular Hemoglobin 32.9 pg (27.0-31.0); Mean Platelet Volume 6.8 fL (7.4-10.4); Platelet Count 225 thou/uL (130-400); RBC Distribution Width 13.9 % (11.5-14.5); Red Blood Cell (RBC) Count 2.75 mill/uL (4.20-5.40); White Blood Cell (WBC) Count 6.4 thou/uL (4.8-10.8)
[2019-01-04 07:40] LABS: Albumin 3.5 g/dL (3.4-4.8); Anion Gap 20 mmol/L (10-20); BUN (Urea Nitrogen) 49 mg/dL (9.8-20.1); BUN/Creatinine Ratio 6.05; Calc. Creatinine Clearance 10 mL/min (70-130); Calcium 8.6 mg/dL (7.8-10.44); Carbon Dioxide 25 mmol/L (23-31); Chloride 97 mmol/L (98-107); Estimated GFR-MDRD 5; Glucose 105 mg/dL (83-110); Potassium 4.2 mmol/L (3.5-5.1); Sodium 138 mmol/L (136-145)
[2019-01-04 07:47] LABS: Vancomycin, Random 7.2 ug/mL (See Comment)
[2019-01-04] MEDS: Cipro 250 MG TAB PO SCH ×3 (08:05→20:28)
[2019-01-04] MEDS: Acetaminophen 500 MG TAB PO SCH ×4 (08:05→20:28)
[2019-01-04] MEDS: Midodrine HCl 5 MG TAB PO PRN (09:00)
--- NOTE | 2019-01-04 10:35 | PRG ---
DATE OF SERVICE: 01/04/2019 SUBJECTIVE: Ms. Daniels is a 78-year-old white female with ESRD and was admitted for bimalleolar fracture and underwent a right ORIF. She is currently undergoing dialysis. Tolerating said treatment. Using no heparin as much as possible due to the recent surgery. OBJECTIVE: VITAL SIGNS: Blood pressure 124/69, heart rate 66, respiratory rate 16, temperature 98.3, and pulse ox 94%. GENERAL: Noted to be awake, alert, comfortable, not in distress. SKIN: Adequate turgor. HEENT: She has slightly pale conjunctivae. Anicteric sclerae. NECK: No neck mass. No carotid bruits. No JVD. CHEST: No deformities. LUNGS: Clear breath sounds. No wheezing. No crackles. HEART: Normal sinus rhythm. No murmur. No gallops. No rubs. ABDOMEN: Globular, soft, and nontender. No masses. EXTREMITIES: No edema. Positive for right leg dressing. MEDICATIONS: Medications of January 04, 2019, reviewed. LABORATORY DATA: Laboratories of January 04, 2019, white count 6.4 and hemoglobin 9.1. Sodium 138, potassium 4.2, chloride 97, carbon dioxide 25, BUN 49, creatinine 8.1, glucose 105, and phosphorus is 6.0. ASSESSMENT AND PLAN: 1. Hyperphosphatemia. Continuing current Renvela dose. 2. End-stage renal disease, stable. We will continue current hemodialysis regimen. Tolerating said treatment. 3. Anemia. Continuing weekly Epogen. 4. Status post bimalleolar fracture - status post right open reduction and internal fixation, doing well. Awaiting rehab placement. Job ID: [id number]
[2019-01-04] MEDS: traMADol HCl 50 MG TAB PO PRN (11:32)
[2019-01-04] MEDS: Sevelamer Carbonate 800 MG TAB PO SCH ×4 (11:33→17:05)
[2019-01-04] MEDS: Folic Acid/Vit B Comp W-C PO SCH ×3 (11:34→11:44)
[2019-01-04] MEDS: Aspirin 81 mg Enteric Coated Tablet PO SCH ×2 (11:35→20:29)
[2019-01-04] MEDS: Senokot S 8.6-50 MG TAB PO SCH ×3 (11:36→20:35)
[2019-01-04] MEDS: Polyethylene Glycol 3350 17 GM Packet PO SCH (11:37)
[2019-01-04] MEDS: EPOETIN ALFA-EPBX (ESRD) 4,000 UNIT/ML VIAL SC SCH (12:20)
[2019-01-04] MEDS ORDERED: Cipro 250 MG TAB PO SCH (12:30)
[2019-01-04] MEDS: Cinacalcet HCl 30 MG TAB PO SCH (17:05)
[2019-01-04] MEDS: Gabapentin 300 MG CAP PO SCH (20:29)
[2019-01-05] MEDS: Acetaminophen 500 MG TAB PO SCH ×3 (03:57→20:06)
[2019-01-05] MEDS: Sevelamer Carbonate 800 MG TAB PO SCH ×3 (08:38→17:01)
[2019-01-05] MEDS: Folic Acid/Vit B Comp W-C PO SCH (08:39)
[2019-01-05] MEDS: Aspirin 81 mg Enteric Coated Tablet PO SCH ×2 (08:39→20:06)
[2019-01-05] MEDS: Senokot S 8.6-50 MG TAB PO SCH ×2 (08:40→20:08)
[2019-01-05] MEDS: Polyethylene Glycol 3350 17 GM Packet PO SCH (08:40)
[2019-01-05] MEDS: traMADol HCl 50 MG TAB PO PRN ×2 (08:54→21:05)
--- NOTE | 2019-01-05 10:58 | PRG ---
DATE OF SERVICE: 01/04/2019 SUBJECTIVE: The patient was seen this evening during rounds. She reported today she had pain during dialysis because she again missed the dose of her pain medications, but since that time, she has received her medications and now her pain is well controlled. Continues to tolerate her diet and work with Physical and Occupational Therapy. OBJECTIVE: VITAL SIGNS: The patient is afebrile, hemodynamically stable. PULMONARY: Equal chest rise and fall. Clear breath sounds bilaterally. No signs of acute respiratory distress. CARDIAC: Regular rate and rhythm. ABDOMEN: Soft, nontender, nondistended. EXTREMITIES: 2+ pulses in all extremities. No significant swelling noted. Right lower extremity with splint that is in place and clean, dry, and intact. NEUROLOGIC: GCS is 15. Gross motor and sensation are intact. ASSESSMENT: 1. Status post mechanical fall from standing. 2. Right ankle fracture. 3. History of chronic right toe wound, end-stage renal disease, on dialysis, sleep apnea, diabetes, hypertension, right renal cancer, and chronic anemia. PLAN: Continue current diet and pain regimen. Continue Physical and Occupational Therapy. Continue Monday, Monday, Monday dialysis under the direction of Dr. Hector. She is pending placement in acute rehab at this time. Job ID: [id number]
--- NOTE | 2019-01-05 11:06 | PRG ---
DATE OF SERVICE: 01/05/2019 SUBJECTIVE: Ms. Daniels is a 78-year-old white female, who was admitted for bimalleolar fracture, underwent right ORIF and followed up by the [facility] for her maintenance hemodialysis. She is doing well with her dialysis. She tolerated the treatment yesterday. Fluid removal is being tolerated. No new complaints today. No chest pain or shortness of breath. She feels that she is getting a little stronger. OBJECTIVE: VITAL SIGNS: Blood pressure is 147/50, heart rate 61, respiratory rate 16, temperature 98.1 and pulse ox 97%. GENERAL: Noted to be awake, alert, comfortable, not in overt distress. SKIN: Adequate turgor. HEENT: She has a slightly pale conjunctivae. Anicteric sclerae. No neck mass. No carotid bruits. No JVD. CHEST: No deformities. LUNGS: Clear breath sounds. HEART: Normal sinus rhythm. No murmurs, gallops, or rubs. ABDOMEN: Globular, soft, nontender. No masses. EXTREMITIES: No edema. Positive for right foot dressing. MEDICATIONS: Medications of January 05, 2019, was reviewed. LABORATORY DATA: Of January 04, 2019; white count 6.4, hemoglobin 9.1. Sodium 138, potassium 4.2, chloride 97, carbon dioxide 25, BUN 49, creatinine 8.1, and phosphorus 6.0. ASSESSMENT AND PLAN: 1. End-stage renal disease, stable. Continuing Monday, Monday, and Monday dialysis. Tolerating said treatment. Fluid removal only as tolerated. 2. Anemia, continuing weekly Epogen. 3. Hyperphosphatemia, continuing use of phosphate binders, currently on Renvela 800 mg 2 tablets t.i.d. with meals. 4. Status post bimalleolar fracture - status post open reduction internal fixation. Still awaiting rehab placement. Job ID: [id number]
--- NOTE | 2019-01-05 13:55 | PRG ---
DATE OF SERVICE: 01/05/2019 SUBJECTIVE: This is a 78-year-old female, who remains on the surgical floor, status post ORIF of right bimalleolar fracture. The patient did receive her dialysis yesterday and tolerated her treatment well. The patient had no overnight events. The patient reports that she continues to progress daily with physical therapy. OBJECTIVE: VITAL SIGNS: Temperature 98.1, pulse 61, respirations 16, SpO2 of 97% on room air, blood pressure 147/50. GENERAL: The patient is awake and alert, in no distress. PULMONARY: Equal chest rise and fall of chest. No respiratory distress. CARDIAC: Regular rate, regular rhythm. EXTREMITIES: No edema. Right lower extremity splinted. IMPRESSION: 1. Status post ground level fall. 2. Right ankle fracture, postop day #8, open reduction and internal fixation. 3. End-stage renal disease . 4. Chronic anemia, treated weekly with Epogen. 5. Sleep apnea. 6. Chronic fourth toe infection. 7. History of hypertension and diabetes. PLAN: Continue supportive care and pain control. Continue to have the patient work with physical and occupational therapy. The patient is pending placement to [facility] as she was denied placement to inpatient rehab. Plan was discussed with the patient, who agrees. The plan was also discussed with the attending, who agrees. Job ID: [id number]
[2019-01-05] MEDS: Cinacalcet HCl 30 MG TAB PO SCH (17:01)
[2019-01-05] MEDS: Cipro 250 MG TAB PO SCH (20:06)
[2019-01-05] MEDS: Gabapentin 300 MG CAP PO SCH (20:06)
--- NOTE | 2019-01-05 22:46 | PRG ---
DATE OF SERVICE: SUBJECTIVE: Patient was seen today during the evening rounds. She reported pain was well controlled and she feels like she is able to get up out of the wheelchair and into the bed more easily. However, she still requires significant assistance. OBJECTIVE: VITAL SIGNS: Patient is afebrile, hemodynamically stable. She is resting comfortably on room air. GENERAL: Well-appearing elderly female, sitting up at edge of bed with no signs of acute distress. PULMONARY: Equal chest rise and fall. No signs of acute respiratory distress. CARDIAC: Regular rate and rhythm. EXTREMITIES: 2+ pulses in all extremities. No significant swelling noted. Right lower extremity with splint that is in place, clean and dry. NEUROLOGIC: GCS is 15. ASSESSMENT: 1. Status post mechanical fall. 2. Right ankle fracture. 3. Chronic right toe wound. 4. History of end-stage renal disease, sleep apnea, diabetes, hypertension, right renal cancer, and chronic anemia. PLAN: Continue current diet and pain regimen. Continue current schedule for dialysis. Patient is pending placement in acute rehab facility. Job ID: [id number]
[2019-01-06] MEDS: Acetaminophen 500 MG TAB PO SCH ×3 (04:22→20:28)
[2019-01-06] MEDS: Cipro 250 MG TAB PO SCH ×2 (06:03→20:29)
[2019-01-06] MEDS: Aspirin 81 mg Enteric Coated Tablet PO SCH ×2 (08:25→20:29)
[2019-01-06] MEDS: Folic Acid/Vit B Comp W-C PO SCH (08:26)
[2019-01-06] MEDS: Polyethylene Glycol 3350 17 GM Packet PO SCH (08:26)
[2019-01-06] MEDS: Senokot S 8.6-50 MG TAB PO SCH ×2 (08:26→20:32)
[2019-01-06] MEDS: Sevelamer Carbonate 800 MG TAB PO SCH ×3 (08:27→16:20)
[2019-01-06] MEDS: traMADol HCl 50 MG TAB PO PRN ×2 (08:56→20:30)
--- NOTE | 2019-01-06 11:47 | PRG ---
DATE OF SERVICE: 01/06/2019 SUBJECTIVE: Ms. Daniels is a 78-year-old white female with ESRD - followed by the [facility] for maintenance hemodialysis, initially admitted for a bimalleolar fracture, status post right ORIF and currently doing well. No new complaints today. No chest pain or shortness of breath. She underwent dialysis last Monday and tolerated said treatment. OBJECTIVE: VITAL SIGNS: Blood pressure is noted at 136/54, heart rate 62, respiratory rate 16, temperature 97.5, and pulse ox 97% on room air. GENERAL: Awake, alert, sitting comfortable, not in distress. SKIN: Adequate turgor. HEENT: She has a slightly pale conjunctivae. Anicteric sclerae. NECK: No neck mass. No carotid bruits. No JVD. CHEST: No deformities. LUNGS: Clear breath sounds. HEART: Normal sinus rhythm. No murmur. No gallops. No rubs. ABDOMEN: Globular, soft, and nontender. No masses. EXTREMITIES: No edema. Positive for right foot dressing. MEDICATIONS: Medications of January 06, 2019, reviewed. LABORATORY DATA: Laboratories of January 04, 2019; white count 6.4, hemoglobin 9.1. Sodium was noted at 138, potassium 4.2, chloride 97, carbon dioxide 25, BUN 49, creatinine 8.1, and phosphorus 6.0. ASSESSMENT AND PLAN: 1. End-stage renal disease, stable. Continue current Monday, Monday, and Monday hemodialysis. There is no indication for any acute dialytic intervention at the present time. The patient is euvolemic. 2. Anemia - continuing Epogen, weekly dosing is given. 3. Status post bimalleolar fracture - status post open reduction and internal fixation. Continuing current management. Awaiting rehab placement. 4. We will recheck basic metabolic and CBC in a.m. Job ID: [id number]
[2019-01-06] MEDS: Cinacalcet HCl 30 MG TAB PO SCH (16:19)
[2019-01-06] MEDS: Gabapentin 300 MG CAP PO SCH (20:29)
--- NOTE | 2019-01-06 20:29 | PRG ---
DATE OF SERVICE: 01/06/2019 SUBJECTIVE: This is a 78-year-old female, who remains on the surgical floor, status post ORIF of right bimalleolar fracture. The patient had no overnight events. The patient voices no complaints at this time. The patient reports her pain is well controlled, and she is progressing with physical therapy. The patient reports that her hoa were removed, and her bandage was redone by Orthopedics earlier today. OBJECTIVE: VITAL SIGNS: Temperature 97.5, pulse 62, respirations 16, SpO2 of 97% on room air, and blood pressure 136/54. IMPRESSION: 1. Status post ground level fall. 2. Right ankle fracture postop day #9, open reduction and internal fixation. 3. End-stage renal disease, on dialysis. 4. Chronic anemia, treated weekly with Epogen. 5. Sleep apnea. 6. Chronic fourth toe infection. 7. History of hypertension and diabetes. PLAN: Continue supportive care and pain control. Continue physical and occupational therapy. Continue dialysis as scheduled. Pending placement to [facility] for continued physical therapy. The plan has been discussed with the patient, who agrees. Job ID: [id number]
--- NOTE | 2019-01-07 03:12 | PRG ---
DATE OF SERVICE: 01/07/2019 The patient is hospital day 11 status post mechanical fall with a right ankle fracture. She also has a chronic right toe wound. The patient has end-stage renal disease and is on dialysis, Monday, Monday, and Monday. She has had no acute events today and is hemodynamically stable, saturating 95% on room air. The patient is pending placement in acute rehab and continues to receive hemodialysis. Chronic right toe wound seems to be improving. She is receiving Cipro and vancomycin per the recommendations of Dr. Tineo of Infectious Disease. She is ready for discharge at this time. Job ID: [id number]
[2019-01-07] MEDS: Acetaminophen 500 MG TAB PO SCH ×2 (04:10→12:52)
[2019-01-07] MEDS: Cipro 250 MG TAB PO SCH (06:15)
[2019-01-07 08:17] LABS: Vancomycin, Random 11.9 ug/mL (See Comment)
[2019-01-07 08:18] LABS: Anion Gap 21 mmol/L (10-20); BUN (Urea Nitrogen) 53 mg/dL (9.8-20.1); Calc. Creatinine Clearance 9 mL/min (70-130); Calcium 8.4 mg/dL (7.8-10.44); Carbon Dioxide 22 mmol/L (23-31); Chloride 99 mmol/L (98-107); Estimated GFR-MDRD 4; Glucose 133 mg/dL (83-110); Potassium 4.4 mmol/L (3.5-5.1); Sodium 138 mmol/L (136-145)
[2019-01-07 08:27] LABS: #Basophils 0.1 thou/uL (0.0-0.2); #Eosinphils 0.2 thou/uL (0.0-0.7); #Lymphocytes 1.4 thou/uL (1.20-3.40); #Monocytes 0.4 thou/uL (0.11-0.59); #Neutrophils 5.3 thou/uL (1.40-6.50); %Basophils 0.7 % (0.0-1.0); %Eosinophils 2.4 % (0.0-10.0); %Lymphocytes 19.5 % (21.0-51.0); %Monocytes 4.9 % (0.0-10.0); %Neutrophils 72.5 % (42.0-75.0); Hemoglobin 9.4 g/dL (12.0-16.0); Mean Corpuscular HGB CONC 34.1 g/dL (32.0-36.0); Mean Corpuscular Hemoglobin 34.1 pg (27.0-31.0); Platelet Count 249 thou/uL (130-400); RBC Distribution Width 13.7 % (11.5-14.5); Red Blood Cell (RBC) Count 2.77 mill/uL (4.20-5.40); White Blood Cell (WBC) Count 7.4 thou/uL (4.8-10.8)
--- NOTE | 2019-01-07 08:55 | PRG ---
DATE OF SERVICE: 01/07/2019 SUBJECTIVE: Ms. Daniels is a 78-year-old white female with ESRD, followed by the [facility] for her maintenance hemodialysis. She was admitted due to a bimalleolar fracture - underwent a right ORIF. Doing well. She is currently undergoing dialysis. Tolerating said treatment. OBJECTIVE: VITAL SIGNS: Blood pressure is 125/62, heart rate 67, respiratory rate 16, temperature 97.9, and pulse ox 95%. GENERAL: Awake, alert, comfortable, not in distress. SKIN: Adequate turgor. HEENT: Pinkish conjunctivae. Anicteric sclerae. NECK: No neck mass. No carotid bruits. No JVD. CHEST: No deformities. LUNGS: Clear breath sounds. HEART: Normal sinus rhythm. No murmur. No gallops. No rubs. ABDOMEN: Globular, soft, and nontender. No masses. EXTREMITIES: No edema. Positive for right leg dressing. MEDICATIONS: Medications of January 07, 2019, reviewed. LABORATORY DATA: Laboratories of January 07, 2019; white count 7.4, hemoglobin 9.4, and hematocrit 27.7. Sodium 139, potassium 4.4, chloride 99, carbon dioxide 22, BUN 53, creatinine 8.86, glucose 133, and calcium 8.4. ASSESSMENT AND PLAN: 1. End-stage renal disease, stable. We will continue current hemodialysis regimen. Fluid removal as tolerated. Attempting 3.5 L fluid removal today. 2. Anemia, continuing weekly Epogen. Tolerating said medication. 3. Status post bimalleolar fracture - status post right ankle open reduction and internal fixation. Doing well. Awaiting rehab placement. Overall, agree with current management. Job ID: [id number]
[2019-01-07] MEDS: Midodrine HCl 5 MG TAB PO PRN (09:24)
[2019-01-07] MEDS: traMADol HCl 50 MG TAB PO PRN (09:25)
[2019-01-07] MEDS: Aspirin 81 mg Enteric Coated Tablet PO SCH (12:50)
[2019-01-07] MEDS: Folic Acid/Vit B Comp W-C PO SCH (12:54)
[2019-01-07] MEDS: Senokot S 8.6-50 MG TAB PO SCH (12:54)
[2019-01-07] MEDS: Sevelamer Carbonate 800 MG TAB PO SCH (12:54)
[2019-01-07] MEDS: Polyethylene Glycol 3350 17 GM Packet PO SCH (12:54)
[2019-01-07 13:18] VITALS: TEMP 97.5
[2019-01-07 15:21] VITALS: BP 124/64
--- NOTE | 2019-01-08 03:49 | DIS ---
DATE OF ADMISSION: 12/27/2018 DATE OF DISCHARGE: 01/07/2019 This is Susan Pearl NP dictating a report for Tristan Rodriguez DO. DISCHARGE ATTENDING: Tristan Rodriguez DO CONSULTS: 1. Orthopedic Surgery. 2. Dr. Tineo, Infectious Disease. 3. Dr. Hector, Nephrology. PROCEDURES: 1. On 12/27/2018, ankle x-ray, impression, displaced bimalleolar fractures. 2. On 12/27/2018, open reduction and internal fixation of right bimalleolar ankle fracture. 3. Dialysis on Monday, Monday, and Monday. PRIMARY DIAGNOSES: 1. Right bimalleolar ankle fracture. 2. Chronic right toe wound. 3. End-stage renal disease. SECONDARY DIAGNOSES: 1. Sleep apnea. 2. Diabetes. 3. Hypertension. 4. Chronic anemia. DISCHARGE MEDICATIONS: 1. Tramadol 50 mg p.o. q.12 hours p.r.n. pain. 2. Acetaminophen 1000mg p.o. q.8 hours. 3. Aspirin 81 mg p.o. b.i.d. for DVT prophylaxis. 4. Sensipar 30 mg p.o. at bedtime. 5. Cipro 250 mg p.o. b.i.d. 6. Flexeril 10 mg three times a day as needed for muscle spasms. 7. Retacrit 7500 units subcu q.7 days. 8. Folic acid/vitamin B complex and C one tablet p.o. daily. 9. Gabapentin 300 mg p.o. at bedtime. 10. ProAmatine 10 mg p.o. Monday, Monday, and Monday. 11. Prilosec 40mg p.o. at bedtime. 12. Zofran ODT as needed q.6 hours. 13. MiraLAX as needed. 14. Senokot as needed. 15. Renvela 1600 mg p.o. 3 times a day with meals. DISCONTINUED MEDICATIONS: IV vancomycin after dialysis. HISTORY OF PRESENT ILLNESS AND HOSPITAL COURSE: This is a 78-year-old female who presented to the ER after a mechanical fall at home. The patient was walking in her garage and tripped over some carpet and slowly slid down onto the floor. The patient had no loss of consciousness and denies hitting her head. The patient reported right ankle pain. The patient arrived with a GCS of 15. There were no other associated injuries. The patient's vital signs remained stable throughout her hospital course. The patient continued to receive her scheduled dialysis on Mondays, Wednesdays, and Fridays. There was an extended hospital stay due to approval for placement. The patient initially wanted inpatient rehab. The patient was finally approved for half-way facility. The patient had no adverse events during her hospital stay. The patient progressed with physical therapy, ambulating with a walker. On the day of discharge, the patient had no complaints nor did her spouse. The patient's vital signs were stable on the day of discharge, and her exam was unremarkable including cardiopulmonary and GI exam. The patient did finish her dialysis today with no issues. The patient was deemed stable for discharge to half-way facility for continued physical and occupational therapy. DISPOSITION: Stable. DISCHARGE INSTRUCTIONS: 1. Location: Long Term Facility. 2. Diet: Consistent carb, 1800 diet, renal diet, high-protein. 3. Activity: Orthopedic limitations, nonweightbearing right lower extremity, weightbearing as tolerated in all other extremities. 4. Followup: Follow up with Orthopedics in 10 days. Follow up with Dr. Hector. No need to follow up with Trauma Services. Please call if you have any questions. Job ID: [id number] MTDD
== END 2019-01-07 15:34 | DRG 492 ==
LOC: ERS 11:35 → SDC/OP 16:36 → SURG B 19:46
PROVIDERS: ADMIT Surgery; ATTEND Surgery
PROC: 0QSJ04Z Reposition Right Fibula with Internal Fixation Device, Open Approach (ICD-10-PCS; principal; 2018-12-27)
PROC: 0QSG04Z Reposition Right Tibia with Internal Fixation Device, Open Approach (ICD-10-PCS; 2018-12-27)
PROC: 5A1D70Z Performance of Urinary Filtration, Intermittent, Less than 6 Hours Per Day (ICD-10-PCS; 2019-01-07)
DX: S82.841A Displaced bimalleolar fracture of right lower leg, initial encounter for closed fracture (principal); N18.6 End stage renal disease; I12.0 Hypertensive chronic kidney disease with stage 5 chronic kidney disease or end stage renal disease; C64.1 Malignant neoplasm of right kidney, except renal pelvis; Z68.41 Body mass index [BMI] 40.0-44.9, adult; E11.21 Type 2 diabetes mellitus with diabetic nephropathy; E66.01 Morbid (severe) obesity due to excess calories; G47.33 Obstructive sleep apnea (adult) (pediatric); E11.22 Type 2 diabetes mellitus with diabetic chronic kidney disease; W01.0XXA Fall on same level from slipping, tripping and stumbling without subsequent striking against object, initial encounter; Y93.01 Activity, walking, marching and hiking; E11.621 Type 2 diabetes mellitus with foot ulcer; E83.39 Other disorders of phosphorus metabolism; Y92.094 Garage of other non-institutional residence as the place of occurrence of the external cause; Z88.1 Allergy status to other antibiotic agents; Z88.8 Allergy status to other drugs, medicaments and biological substances; Z99.2 Dependence on renal dialysis; Z79.4 Long term (current) use of insulin; Z90.710 Acquired absence of both cervix and uterus
CPT/HCPCS: 27810; 36415; 36416; 76000; 80048; 80053; 80069; 80202; 83735; 84100; 85025; 85610; 85730; 86850; 86870; 86900; 86901; 86922; 90935; 93005; 96374; C1713; G0257; G0390; J0131; J0690; J2001; J2405; J2704; J2765; J3010; J3370; J3490; J7050; Q5105; S0028

== ENCOUNTER 2019-10-02 12:37 | Emergency (ER) | payer OTHER ==
[2019-10-02 14:32] LABS: Anion Gap 23 mmol/L (10-20); BUN (Urea Nitrogen) 60 mg/dL (9.8-20.1); Calc. Creatinine Clearance 0 mL/min (70-130); Calcium 9.4 mg/dL (7.8-10.44); Carbon Dioxide 28 mmol/L (23-31); Chloride 96 mmol/L (98-107); Estimated GFR-MDRD 4; Glucose 132 mg/dL (83-110); Potassium 4.8 mmol/L (3.5-5.1); Sodium 142 mmol/L (136-145)
== END 2019-10-02 14:50 | disposition home or self-care (01) ==
LOC: ERS 12:37
DX: T82.49XA Other complication of vascular dialysis catheter, initial encounter (principal); I10 Essential (primary) hypertension; E66.9 Obesity, unspecified; Z79.899 Other long term (current) drug therapy; Z79.82 Long term (current) use of aspirin
CPT/HCPCS: 36415; 80048; 99284

== ENCOUNTER 2020-01-15 15:58 | Outpatient (CLI) | payer MEDICARE ==
--- NOTE | 2020-01-15 16:27 | RAD ---
EXAM: Chest PA and lateral: HISTORY: Shortness of breath COMPARISON: 10/03/2013 FINDINGS: Heart: Normal cardiac silhouette Aorta: Cirrhosis Pulmonary vessels: Normal Costophrenic angles: Costophrenic angles are clear. Lungs: Chronic lung parenchymal changes. Pneumothorax: No pneumothorax Osseous structures: No osseous abnormalities IMPRESSION: 1. Chronic lung parenchymal changes 2. Atherosclerosis
== END 2020-01-15 15:59 | disposition home or self-care (01) ==
LOC: BICRAD 15:58
PROVIDERS: ATTEND Internal Medicine Nephrology
DX: R06.02 Shortness of breath (principal); I70.90 Unspecified atherosclerosis
CPT/HCPCS: 71046

== ENCOUNTER 2020-01-23 17:44 | Inpatient (IN) | payer MEDICARE, OTHER ==
[2020-01-23 18:25] LABS: #Lymphocytes 0.8 thou/uL (1.20-3.40); #Monocytes 0.3 thou/uL (0.11-0.59); #Neutrophils 5.2 thou/uL (1.40-6.50); %Eosinophils 0.3 % (0.0-10.0); %Lymphocytes 12.5 % (21.0-51.0); %Monocytes 4.2 % (0.0-10.0); Hemoglobin 6.2 g/dL (12.0-16.0); Mean Corpuscular Hemoglobin 32.5 pg (27.0-31.0); Mean Corpuscular Volume 95.7 fL (78.0-98.0); Mean Platelet Volume 7.9 fL (7.4-10.4); Platelet Count 133 thou/uL (130-400); RBC Distribution Width 12.5 % (11.5-14.5); Red Blood Cell (RBC) Count 1.89 mill/uL (4.20-5.40); White Blood Cell (WBC) Count 6.3 thou/uL (4.8-10.8)
--- NOTE | 2020-01-23 18:32 | RAD ---
Exam: Chest one view HISTORY:Status post dialysis. Weakness. Comparison: 01/01/2020, 01/15/2020 FINDINGS: Cardiac silhouette:Cardiomegaly Aorta: Atherosclerosis Pulmonary vessels: Normal Costophrenic angles: Clear LUNGS: Neck lung parenchymal changes. No masses or consolidation. Pneumothorax: None Osseous abnormalities: None IMPRESSION: No acute cardiopulmonary process.
[2020-01-23 18:38] LABS: ALT (SGPT) 22 U/L (8-55); AST (SGOT) 23 U/L (5-34); Albumin 4.1 g/dL (3.4-4.8); Alkaline Phosphatase 86 U/L (40-110); Anion Gap 19 mmol/L (10-20); BUN (Urea Nitrogen) 31 mg/dL (9.8-20.1); Bilirubin, Total 0.7 mg/dL (0.2-1.2); CK (CPK) 160 U/L (29-168); Calc. Creatinine Clearance 0 mL/min (70-130); Calcium 8.9 mg/dL (7.8-10.44); Carbon Dioxide 29 mmol/L (23-31); Chloride 93 mmol/L (98-107); Estimated GFR-MDRD 7; Globulin 2.7 g/dL (2.4-3.5); Glucose 197 mg/dL (83-110); Magnesium 1.7 mg/dL (1.6-2.6); Protein, Total 6.8 g/dL (6.0-8.3); Sodium 137 mmol/L (136-145)
[2020-01-23] MEDS ORDERED: Acetaminophen 325 MG TAB PO PRN (21:15)
--- NOTE | 2020-01-23 21:42 | PDOC.EVN ---
Event Note - Event Note Event Note: [id number] HP
[2020-01-23 22:03] LABS: Troponin I 0.027 ng/mL (< 0.028)
[2020-01-23 22:48] VITALS: BMI 41.4
[2020-01-24 01:19] LABS: Troponin I 0.049 ng/mL (< 0.028)
[2020-01-24] MEDS ORDERED: Melatonin 3 MG TAB PO PRN (01:27)
--- NOTE | 2020-01-24 01:33 | HP ---
CHIEF COMPLAINT: Weakness and shortness of breath. HISTORY OF PRESENT ILLNESS: Ms. Daniels is a 79-year-old female with past medical history of end-stage renal disease on hemodialysis Monday, Monday, and Monday, renal cancer, presented to the emergency room with weakness that started after dialysis yesterday. She also felt short of breath with minimal exertion. Denies chest pain, vomiting blood or bleeding per rectum. Denies dark stool. The patient was tested negative for COVID 2 to 3 weeks ago. Workup in the emergency room, the patient was found to be anemic with hemoglobin of 6.2. Type and cross and packed RBC transfusion was ordered by ED physician. ED physician consulted the patient's adult nurse practitioner. The patient is being admitted to hospital for further management. PAST MEDICAL HISTORY: 1. End-stage renal disease, on hemodialysis. 2. Renal cancer. PAST SURGICAL HISTORY: 1. Partial nephrectomy. 2. Hysterectomy. 3. Peritoneal dialysis shunt. 4. Hernia. 5. Fistula placed, left arm. 6. Right ankle surgery. SOCIAL HISTORY: Drinks alcohol socially. Denies smoking history or drug use. Lives at home with family. HOME MEDICATIONS: Please see home medication reconciliation form for updated medications. FAMILY HISTORY: Reviewed and noncontributory. ALLERGIES: ALLERGIC TO AMOXICILLIN AND HYDRALAZINE. REVIEW OF SYSTEMS: Review of 14 systems negative except what is mentioned in history of present illness. PHYSICAL EXAMINATION: GENERAL: The patient is awake, alert, and appears pale. VITAL SIGNS: Blood pressure 119/42, pulse is 77, respiratory rate is 16, temperature is 99, oxygen saturation 98% on room air. HEAD AND NECK: Normocephalic, atraumatic. Neck is supple. No JVD. CHEST: Decreased air entry bilaterally. HEART: S1, S2. Regular. ABDOMEN: Soft, nontender. Bowel sounds present. NEUROLOGIC: Awake, alert, oriented x3. No focal deficits. PSYCH: Unable to assess. EXTREMITIES: No clubbing or cyanosis. GENITOURINARY: No suprapubic tenderness. No flank tenderness. LABORATORY DATA: BUN is 31, creatinine 5.9, potassium is 4.0, glucose 197. WBC count is 6.3, hemoglobin 6.2, platelets 133. Chest x-ray, no acute cardiopulmonary process. ASSESSMENT: 1. Symptomatic anemia, severe. 2. End-stage renal disease on hemodialysis Monday, Monday, Monday. 3. Generalized weakness. 4. Shortness of breath. 5. History of renal cancer/partial nephrectomy. PLAN: 1. Admit. 2. Type and cross and transfuse packed RBCs ordered by ED physician. 3. Check stool for occult blood. 4. Monitor hemoglobin and hematocrit. 5. Consult the patient's adult nurse practitioner for evaluation and further management. 6. Reconcile home medications. 7. Deep venous thrombosis prophylaxis appropriate. 8. Expected length of stay, at least 1 midnight if patient is stable. Job ID: [id number]
[2020-01-24 02:51] LABS: Hemoglobin 5.6 g/dL (12.0-16.0); Mean Corpuscular HGB CONC 34.1 g/dL (32.0-36.0); Mean Corpuscular Hemoglobin 32.7 pg (27.0-31.0); Mean Corpuscular Volume 95.8 fL (78.0-98.0); RBC Distribution Width 12.4 % (11.5-14.5); White Blood Cell (WBC) Count 5.4 thou/uL (4.8-10.8)
[2020-01-24 03:07] LABS: #Lymphocytes 0.9 thou/uL (1.20-3.40); #Monocytes 0.2 thou/uL (0.11-0.59); #Neutrophils 4.2 thou/uL (1.40-6.50); %Basophils 0.1 % (0.0-1.0); %Eosinophils 0.5 % (0.0-10.0); %Lymphocytes 16.9 % (21.0-51.0); %Monocytes 4.2 % (0.0-10.0); %Neutrophils 78.4 % (42.0-75.0); Mean Platelet Volume 7.7 fL (7.4-10.4); Platelet Count 117 thou/uL (130-400)
[2020-01-24 03:18] LABS: Anion Gap 17 mmol/L (10-20); BUN (Urea Nitrogen) 35 mg/dL (9.8-20.1); Calc. Creatinine Clearance 13 mL/min (70-130); Calcium 8.5 mg/dL (7.8-10.44); Carbon Dioxide 27 mmol/L (23-31); Chloride 94 mmol/L (98-107); Estimated GFR-MDRD 6; Glucose 189 mg/dL (83-110); Potassium 3.6 mmol/L (3.5-5.1); Sodium 134 mmol/L (136-145)
[2020-01-24] MEDS ORDERED: Bisacodyl 10 MG SUPP PR PRN (08:40)
[2020-01-24] MEDS ORDERED: Dextrose 5% in Water 1,000 ML IV PRN (08:40)
[2020-01-24] MEDS ORDERED: Insulin Regular 300 UNITS/3 ML VIAL SC PRN ×2 (08:40)
[2020-01-24] MEDS ORDERED: Calcium Carbonate 500 MG ChewTAB PO PRN (08:40)
[2020-01-24] MEDS ORDERED: Senokot S 8.6-50 MG TAB PO PRN (08:40)
[2020-01-24] MEDS ORDERED: Ondansetron PF 4 MG/2 ML Vial IVP PRN (08:40)
[2020-01-24] MEDS ORDERED: Ondansetron ODT 4 MG TAB PO PRN (08:40)
[2020-01-24] MEDS ORDERED: Dextrose 50% Abboject 50 ML SYRINGE SLOW IVP PRN (08:40)
[2020-01-24] MEDS ORDERED: Epoetin (ESRD) 20,000 UNITS/ML SC SCH (08:45)
[2020-01-24] MEDS ORDERED: Non-Formulary Item 1 EACH (Omeprazole [Prilosec] 20 MG) PO SCH (09:00)
[2020-01-24] MEDS ORDERED: Famotidine 20 MG TAB PO SCH (09:00)
--- NOTE | 2020-01-24 09:21 | PRG ---
DATE OF SERVICE: 01/24/2020 SUBJECTIVE: Ms. Daniels is a 79-year-old white female with ESRD, currently on hemodialysis. She was admitted for symptomatic anemia. She received 1 unit of packed RBC last night. She is feeling a little better. However, hemoglobin still noted at 5.6. No other complaints. No chest pain. No shortness of breath. OBJECTIVE: VITAL SIGNS: Blood pressure 138/58, heart rate 59, respiratory rate 18, temperature 98.4, and O2 saturation 95%. GENERAL: The patient is awake, alert, and comfortable. SKIN: Adequate turgor. HEENT: Slightly pale conjunctivae. Anicteric sclerae. NECK: No neck mass. No carotid bruits. No JVD. CHEST: No deformities. LUNGS: Clear breath sounds. No wheezing. No crackles. HEART: Normal sinus rhythm. No murmurs. No gallops. No rubs. ABDOMEN: Globular, soft, and nontender. No masses. EXTREMITIES: Trace edema. MEDICATIONS: Medications of January 24, 2020, were reviewed. LABORATORY DATA: Laboratories of January 24, 2020; white count 5.4, hemoglobin 5.6. Sodium 134, potassium 3.6, chloride 94, carbon dioxide 27, BUN 35, creatinine 6.29, glucose 189, and calcium 8.5. ASSESSMENT AND PLAN: 1. Symptomatic anemia-the patient may need a workup for the anemia. Please note, the patient has stool cards done last week and they were negative x3. If needed, we can refer the patient to GI for an upper and lower GI endoscopy. In addition, if the findings are negative, we could consider referring the patient to Hematology. We gave her 2 units of packed RBC. Start Epogen 10,000 units subcu every week. 2. End-stage renal disease, stable. We will continue current maintenance hemodialysis. We will do her for a 3 hours hemodialysis today with fluid removal only as tolerated. 3. Review of the last Kt/V suggests she is adequately dialyzed with the current dialysis regimen. Job ID: [id number]
[2020-01-24] MEDS: Midodrine HCl 5 MG TAB PO PRN (09:54)
[2020-01-24 09:59] LABS: Hemoglobin 7.2 g/dL (12.0-16.0)
[2020-01-24 10:11] LABS: Iron 185 ug/dL (50-170); Iron Binding Capacity, Total 230 mcg/dL (265-497)
[2020-01-24 10:15] LABS: Troponin I 0.029 ng/mL (< 0.028)
[2020-01-24] MEDS ORDERED: Midodrine HCl 5 MG TAB PO PRN (11:11)
[2020-01-24 11:49] LABS: Band 9 % (5-11); Eosinophils 1 % (0-10); Hemoglobin 7.2 g/dL (12.0-16.0); Lymphocytes 18 % (21-51); MDiff Complete? YES; Mean Platelet Volume 8.3 fL (7.4-10.4); Monocytes 3 % (0-10); Myelocyte 1 % (0-0); Neutrophil 68 % (42-75); Nucleated RBC 1 % (0); Platelet Count 137 thou/uL (130-400); Platelet Morphology Comment Appears Adequate; Polychromasia SLIGHT = 2-3 cells (100X) (0-2/hpf); RBC Distribution Width 12.5 % (11.5-14.5); Red Blood Cell (RBC) Count 2.32 mill/uL (4.20-5.40); White Blood Cell (WBC) Count 6.7 thou/uL (4.8-10.8)
[2020-01-24] MEDS ORDERED: EPOETIN ALFA-EPBX (ESRD) 10,000 UNIT/ML VIAL SC SCH (12:00)
[2020-01-24] MEDS: Sevelamer Carbonate 800 MG TAB PO SCH ×2 (13:03→17:13)
[2020-01-24 13:58] LABS: SARS-CoV-2 MS2 Positive; SARS-CoV-2 N Gene Negative; SARS-CoV-2 S Gene Negative; SARS-CoV-2 by NAA Not Detected (NotDetected); SARS-CoV-2 orf1ab Negative
[2020-01-24] MEDS: Folic Acid/Vit B Comp W-C PO SCH (15:04)
--- NOTE | 2020-01-24 19:43 | PDOC.HOSPP ---
- Subjective Encounter Date: 01/24/20 Encounter Time: 10:00 Subjective: Patient seen and examined for generalized weakness with anemia. S/p 1 unit PRBC. Denies any chest pain or shortness of breath. No hematemesis melena or hematochezia reported. - Objective Vital Signs & Weight: Vital Signs (12 hours) Temp Pulse Resp BP Pulse Ox 01/24/20 15:00 98.6 F 64 20 151/65 H 94 L 01/24/20 08:05 98.4 F 59 L 18 138/58 L 95 Weight Weight 241 lb 6.499 oz I&O: 01/23/20 01/24/20 01/25/20 06:59 06:59 06:59 Intake Total 292 767 Output Total 1800 Balance 292 -1033 Result Diagrams: 01/24/20 09:31 01/24/20 02:35 Additional Labs: Accuchecks 01/24/20 01/24/20 15:23 11:59 POC Glucose 171 H 158 H Radiology Reviewed by me: Yes (X-raynegative for edema or infiltrate) EKG Reviewed by me: Yes (Sinus rhythm on telemetry) Hospitalist ROS - Review of Systems Respiratory: denies: cough, dry, shortness of breath, hemoptysis, SOB with excertion, pleuritic pain, sputum, wheezing, other Cardiovascular: denies: chest pain, palpitations, orthopnea, paroxysmal noc. dyspnea, edema, light headedness, other - Medication Medications: Active Medications Generic Name Dose Route Start Last Admin Trade Name Freq PRN Reason Stop Dose Admin Epoetin Jesus Alberto-epbx 10,000 unit 01/24/20 12:00 01/24/20 17:08 Retacrit SC 10,000 unit Q7D KHANG Administration Melatonin 3 mg 01/24/20 01:27 01/24/20 01:40 Melatonin PO 3 mg HS PRN Administration Insomnia Midodrine 10 mg 01/24/20 08:42 01/24/20 09:54 Proamatine PO 10 mg MWF PRN Administration Hemodialysis Pantoprazole Sodium 40 mg 01/24/20 09:00 01/24/20 13:03 Protonix PO Not Given DAILY KHANG Sevelamer Carbonate 1,600 mg 01/24/20 12:00 01/24/20 17:13 Renvela PO Not Given TID-WM KHANG Vitamin B Complex/Vit C/Folic Acid 1 tab 01/24/20 09:00 01/24/20 15:04 Nephro-Davi Tablet PO 1 tab DAILY KHANG Administration - Exam General Appearance: NAD Neck: supple, no JVD Heart: RRR, no gallops, no rubs, normal peripheral pulses Respiratory: no wheezes, no rales, no ronchi, normal chest expansion Gastrointestinal: soft, non-tender, non-distended, normal bowel sounds Extremities: no cyanosis, no clubbing, no edema Extremities - other findings: No Calf tenderness Neurological: cranial nerve grossly intact, normal sensation to touch, no weakness, no new deficit Musculoskeletal: normal tone, normal strength, generalized weakness Psychiatric: normal affect, A&O x 3 Hosp A/P - Plan DVT proph w/SCDs Generalized weakness due to symptomatic anemia End-stage renal disease on hemodialysis History of renal cancer s/p partial nephrectomy Coronary artery disease Hypertension 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 Her hemoglobin this morning was 5.6. Will check iron profile. Her Hemoccult 3 as outpatient 1 negative. However the Hemoccult today came back positive. I discussed with gastroenterology it professional who recommended outpatient follow-up. Symptomatically she is feeling better after blood transfusion. She will undergo dialysis today. Monitor patient overnight. Continue PPIs. Recheck labs in a.m. If patient has been started. Home medications will be verified. Continue sliding scale. Patient understands the above plan of care. She spoke code and makes her own decision with the help her spouse
[2020-01-24] MEDS: Gabapentin 300 MG CAP PO SCH (20:37)
[2020-01-25 04:44] LABS: #Eosinphils 0.1 thou/uL (0.0-0.7); #Lymphocytes 1.3 thou/uL (1.20-3.40); #Monocytes 0.3 thou/uL (0.11-0.59); #Neutrophils 4.1 thou/uL (1.40-6.50); %Basophils 0.3 % (0.0-1.0); %Eosinophils 1.2 % (0.0-10.0); %Lymphocytes 22.6 % (21.0-51.0); %Monocytes 4.6 % (0.0-10.0); %Neutrophils 71.3 % (42.0-75.0); Hemoglobin 8.2 g/dL (12.0-16.0); Mean Corpuscular HGB CONC 34.6 g/dL (32.0-36.0); Mean Corpuscular Hemoglobin 32.5 pg (27.0-31.0); Mean Corpuscular Volume 93.7 fL (78.0-98.0); Mean Platelet Volume 7.9 fL (7.4-10.4); Platelet Count 119 thou/uL (130-400); RBC Distribution Width 12.9 % (11.5-14.5); Red Blood Cell (RBC) Count 2.51 mill/uL (4.20-5.40); White Blood Cell (WBC) Count 5.7 thou/uL (4.8-10.8)
[2020-01-25 05:17] LABS: Anion Gap 17 mmol/L (10-20); BUN (Urea Nitrogen) 23 mg/dL (9.8-20.1); Calc. Creatinine Clearance 17 mL/min (70-130); Calcium 8.8 mg/dL (7.8-10.44); Carbon Dioxide 26 mmol/L (23-31); Chloride 98 mmol/L (98-107); Estimated GFR-MDRD 9; Glucose 151 mg/dL (83-110); Potassium 3.6 mmol/L (3.5-5.1); Sodium 137 mmol/L (136-145)
[2020-01-25] MEDS: Folic Acid/Vit B Comp W-C PO SCH (08:26)
[2020-01-25] MEDS: Sevelamer Carbonate 800 MG TAB PO SCH ×3 (08:34→17:42)
--- NOTE | 2020-01-25 11:06 | PRG ---
DATE OF SERVICE: 01/25/2020 SUBJECTIVE: Ms. Daniels is a 79-year-old white female with ESRD-on maintenance hemodialysis, and admitted for symptomatic anemia. She has been given several units of packed RBC. In addition, we have initiated Epogen. Please note, previous stool cards x3 have been negative with this patient. She is still feeling a little tired, but slightly improved compared with admission. She has some occasional shortness of breath on exertion, but no chest pain. OBJECTIVE: VITAL SIGNS: Blood pressure is 157/66, heart rate 57, respiratory rate 18, temperature 98.3, O2 saturation 97% room air. GENERAL: The patient is awake, alert, supine, comfortable, obese, not in distress. SKIN: Adequate turgor. HEENT: Slightly pale conjunctivae. Anicteric sclerae. No neck mass. No carotid bruits. No JVD. CHEST: No deformities. LUNGS: Clear breath sounds. HEART: Normal sinus rhythm. No murmurs, no gallops, no rubs. ABDOMEN: Globular, soft, nontender. No masses. EXTREMITIES: No edema. No deformities. MEDICATIONS: Medications of January 25, 2020, were reviewed. LABORATORY DATA: Laboratories of January 25, 2020; white count 5.7, hemoglobin 8.2. Sodium 137, potassium 3.6, chloride 98, carbon dioxide 26, BUN 23, creatinine 4.57, glucose 151, calcium 8.8. ASSESSMENT AND PLAN: 1. End-stage renal disease, stable, tolerating current hemodialysis regimen. Fluid removal as tolerated. There is no indication today for any emergent hemodialysis. 2. Anemia, improved with blood transfusion. Continue weekly Epogen. If needed, we need to reconsult GI - consider repeat colonoscopy/upper GI endoscopy. If negative status, she may need Hematology consult. 3. Generalized weakness - check cardiac echo. Check TSH. We will recheck CBC, basic metabolic in a.m. Job ID: [id number]
--- NOTE | 2020-01-25 19:33 | PDOC.HOSPP ---
- Subjective Encounter Date: 01/25/20 Encounter Time: 11:00 Subjective: Patient seen and examined for generalized weakness with symptomatic anemia. Received 2 units of PRBC yesterday. Continues to feel generally weak and fatigue. No fever, chest pain, palpitations or syncope reported. - Objective Vital Signs & Weight: Vital Signs (12 hours) Temp Pulse Pulse Resp BP BP Pulse Ox 01/25/20 15:05 98.8 F 66 16 141/66 H 96 01/25/20 12:05 60 142/83 H 01/25/20 11:45 98.9 F 59 L 16 169/64 H 97 Pulse Ox 01/25/20 15:05 01/25/20 12:05 97 01/25/20 11:45 Weight Weight 241 lb 6.499 oz I&O: 01/24/20 01/25/20 01/26/20 06:59 06:59 06:59 Intake Total 292 767 720 Output Total 1800 Balance 292 -1033 720 Result Diagrams: 01/25/20 04:26 01/25/20 04:26 Additional Labs: Accuchecks 01/25/20 01/25/20 01/25/20 17:12 10:56 06:06 POC Glucose 206 H 224 H 153 H 01/25/20 00:26 POC Glucose 165 H EKG Reviewed by me: Yes (Sinus rhythm on telemetry) Hospitalist ROS - Review of Systems Respiratory: reports: SOB with excertion. denies: cough, dry, shortness of breath, hemoptysis, pleuritic pain, sputum, wheezing, other Cardiovascular: denies: chest pain, palpitations, orthopnea, paroxysmal noc. dyspnea, edema, light headedness, other - Medication Medications: Active Medications Generic Name Dose Route Start Last Admin Trade Name Freq PRN Reason Stop Dose Admin Epoetin Jesus Alberto-epbx 10,000 unit 01/24/20 12:00 01/24/20 17:08 Retacrit SC 10,000 unit Q7D KHANG Administration Gabapentin 300 mg 01/24/20 21:00 01/24/20 20:37 Neurontin PO Not Given HS KHANG Melatonin 3 mg 01/24/20 01:27 01/24/20 01:40 Melatonin PO 3 mg HS PRN Administration Insomnia Midodrine 10 mg 01/24/20 08:42 09/04/20 09:54 Proamatine PO 10 mg MWF PRN Administration Hemodialysis Pantoprazole Sodium 40 mg 01/24/20 09:00 01/25/20 08:26 Protonix PO 40 mg DAILY KHANG Administration Sevelamer Carbonate 1,600 mg 01/24/20 12:00 01/25/20 17:42 Renvela PO 1,600 mg TID-WM KHANG Administration Vitamin B Complex/Vit C/Folic Acid 1 tab 01/24/20 09:00 01/25/20 08:26 Nephro-Davi Tablet PO 1 tab DAILY KHANG Administration - Exam General Appearance: ill appearing Neck: supple, no JVD Heart: RRR, no gallops, no rubs Respiratory: no wheezes, no rales Gastrointestinal: soft, non-tender, no guarding, no rigidity Neurological: no new deficit Psychiatric: A&O x 3 Hosp A/P - Plan DVT proph w/SCDs Generalized weakness/fatigue due to symptomatic anemia End-stage renal disease on hemodialysis History of renal cancer s/p partial nephrectomy Coronary artery [id number] cardiac catheterizationmild disease Hypertension 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 Vitamin B12 folic acid were normal. H&H stable. Denies any hematemesis, melena or hematochezia. Will check cortisol and TSH in a.m. Echocardiogram is pending at this time. Physical therapy evaluation. Will consult classification case manager for home health care. Patient declined inpatient rehab or intermediate facility. Continue midodrine as needed. Check orthostatic vitals in a.m. GI follow-up as outpatient. Continue PPIs 01/23 Patient will receive another unit of PRBC with dialysis. Her hemoglobin this morning was 5.6. Will check iron profile. Her Hemoccult 3 as outpatient 1 negative. However the Hemoccult today came back positive. I discussed with gastroenterology media relations intern who recommended outpatient follow-up. Symptomatically she is feeling better after blood transfusion. She will undergo dialysis today. Monitor patient overnight. Continue PPIs. Recheck labs in a.m. If patient has been started. Home medications will be verified. Continue sliding scale. Patient understands the above plan of care. She spoke code and makes her own decision with the help her spouse
[2020-01-25] MEDS: Gabapentin 300 MG CAP PO SCH (20:22)
[2020-01-26 04:23] LABS: #Eosinphils 0.1 thou/uL (0.0-0.7); #Lymphocytes 1.3 thou/uL (1.20-3.40); #Monocytes 0.3 thou/uL (0.11-0.59); #Neutrophils 3.5 thou/uL (1.40-6.50); %Eosinophils 1.5 % (0.0-10.0); %Lymphocytes 24.8 % (21.0-51.0); %Monocytes 5.8 % (0.0-10.0); %Neutrophils 67.9 % (42.0-75.0); Hemoglobin 7.5 g/dL (12.0-16.0); Mean Corpuscular HGB CONC 34.1 g/dL (32.0-36.0); Mean Corpuscular Hemoglobin 32.2 pg (27.0-31.0); Mean Corpuscular Volume 94.2 fL (78.0-98.0); Mean Platelet Volume 8.2 fL (7.4-10.4); Platelet Count 106 thou/uL (130-400); RBC Distribution Width 12.7 % (11.5-14.5); Red Blood Cell (RBC) Count 2.32 mill/uL (4.20-5.40); White Blood Cell (WBC) Count 5.1 thou/uL (4.8-10.8)
[2020-01-26 04:37] LABS: Anion Gap 19 mmol/L (10-20); BUN (Urea Nitrogen) 42 mg/dL (9.8-20.1); Calc. Creatinine Clearance 12 mL/min (70-130); Calcium 8.3 mg/dL (7.8-10.44); Carbon Dioxide 24 mmol/L (23-31); Chloride 100 mmol/L (98-107); Estimated GFR-MDRD 6; Glucose 148 mg/dL (83-110); Potassium 3.7 mmol/L (3.5-5.1); Sodium 139 mmol/L (136-145)
[2020-01-26] MEDS: Sevelamer Carbonate 800 MG TAB PO SCH ×3 (07:52→16:02)
[2020-01-26] MEDS: Folic Acid/Vit B Comp W-C PO SCH (09:44)
--- NOTE | 2020-01-26 10:33 | PRG ---
DATE OF SERVICE: SUBJECTIVE: Ms. Daniels is a 79-year-old white female with ESRD and currently on maintenance hemodialysis. She is feeling better today. Her strength is much improved. She denies any chest pain or shortness of breath. OBJECTIVE: VITAL SIGNS: Blood pressure is 118/58, heart rate 68, respiratory rate 20, temperature 98.7, O2 sats 97%. GENERAL: Patient is awake, alert, comfortable, obese, not in distress. SKIN: Adequate turgor. HEENT: Slightly pale conjunctivae. Anicteric sclerae. NECK: No neck mass. No carotid bruits. No JVD. CHEST: No deformities. LUNGS: Clear breath sounds. HEART: Normal sinus rhythm. No murmur. No gallops. No rubs. ABDOMEN: Globular, soft, nontender. No masses. EXTREMITIES: No edema, no deformities. MEDICATIONS: Medications of January 26, 2020, reviewed. LABORATORY DATA: Laboratories of January 26, 2020; sodium 139, potassium 3.7, chloride 100, carbon dioxide 24, BUN 42, creatinine 6.65, glucose 148, calcium 8.3. White count 5.1, hemoglobin 7.5. ASSESSMENT AND PLAN: 1. End-stage renal disease, stable. We will continue current Monday, Monday, and Monday hemodialysis. There is no indication for any emergent hemodialysis today. 2. Anemia, on p.r.n. blood transfusion. In addition, patient receiving weekly Epogen at 10,000 units subcu q.week. Patient has a followup appointment with GI. They will determine if the patient will need any endoscopy. Please note the previous stool cards done on this patient was said to have been negative x3. Continue supportive care. Job ID: [id number]
--- NOTE | 2020-01-26 12:29 | PDOC.HOSPP ---
- Subjective Encounter Date: 01/26/20 Encounter Time: 10:00 Subjective: Patient seen and examined for generalized weakness with symptomatic anemia. Symptomatically feels much better. Denies any chest pain, palpitations or melena. - Objective Vital Signs & Weight: Vital Signs (12 hours) Temp Pulse Resp BP BP Pulse Ox 01/26/20 08:00 16 138/60 96 01/26/20 04:16 98.7 F 60 20 118/58 L 97 01/26/20 01:12 99 Weight Weight 247 lb 5.738 oz I&O: 01/25/20 01/26/20 01/27/20 06:59 06:59 06:59 Intake Total 767 970 240 Output Total 1800 0 Balance -1033 970 240 Result Diagrams: 01/26/20 04:00 01/26/20 04:00 Additional Labs: Accuchecks 01/26/20 01/26/20 01/25/20 10:28 06:17 20:50 POC Glucose 229 H 150 H 231 H 01/25/20 17:12 POC Glucose 206 H EKG Reviewed by me: Yes (Sinus rhythm on telemetry) Hospitalist ROS - Review of Systems Respiratory: denies: cough, dry, shortness of breath, hemoptysis, SOB with excertion, pleuritic pain, sputum, wheezing, other Cardiovascular: denies: chest pain, palpitations, orthopnea, paroxysmal noc. dyspnea, edema, light headedness, other - Medication Medications: Active Medications Generic Name Dose Route Start Last Admin Trade Name Freq PRN Reason Stop Dose Admin Epoetin Jesus Alberto-epbx 10,000 unit 01/24/20 12:00 01/24/20 17:08 Retacrit SC 10,000 unit Q7D KHANG Administration Gabapentin 300 mg 01/24/20 21:00 01/25/20 20:22 Neurontin PO 300 mg HS KHANG Administration Melatonin 3 mg 01/24/20 01:27 01/24/20 01:40 Melatonin PO 3 mg HS PRN Administration Insomnia Midodrine 10 mg 01/24/20 08:42 01/24/20 09:54 Proamatine PO 10 mg MWF PRN Administration Hemodialysis Pantoprazole Sodium 40 mg 01/24/20 09:00 01/26/20 09:44 Protonix PO 40 mg DAILY KHANG Administration Sevelamer Carbonate 1,600 mg 01/24/20 12:00 01/26/20 12:25 Renvela PO 1,600 mg TID-WM KHANG Administration Vitamin B Complex/Vit C/Folic Acid 1 tab 01/24/20 09:00 01/26/20 09:44 Nephro-Davi Tablet PO 1 tab DAILY KHANG Administration - Exam General Appearance: NAD Neck: supple, no JVD Heart: RRR, no gallops Respiratory: no wheezes, no ronchi Gastrointestinal: soft, non-distended Extremities: no cyanosis Hosp A/P - Plan DVT proph w/SCDs Generalized weakness/fatigue due to symptomatic anemia End-stage renal disease on hemodialysis History of renal cancer s/p partial nephrectomy Coronary artery [id number] cardiac catheterizationmild disease Hypertension 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 Cortisol level was normal. Patient declined home health care. Recheck labs in a.m. DC home when cleared by nephrology. Continue Renvela, Protonix and gabapentin. Epogen every 7 days. Continue midodrine as needed. 01/24 Patient continues to feel generally weak and fatigue. Vitamin B12 folic acid were normal. H&H stable. Denies any hematemesis, melena or hematochezia. Will check cortisol and TSH in a.m. Echocardiogram is pending at this time. Physical therapy evaluation. Will consult case management associate for home health care. Patient declined inpatient rehab or shelter facility. Continue midodrine as needed. Check orthostatic vitals in a.m. GI follow-up as outpatient. Continue PPIs 01/23 Patient will receive another unit of PRBC with dialysis. Her hemoglobin this morning was 5.6. Will check iron profile. Her Hemoccult 3 as outpatient 1 negative. However the Hemoccult today came back positive. I discussed with gastroenterology educational administration teacher who recommended outpatient follow-up. Symptomatically she is feeling better after blood transfusion. She will undergo dialysis today. Monitor patient overnight. Continue PPIs. Recheck labs in a.m. If patient has been started. Home medications will be verified. Continue sliding scale. Patient understands the above plan of care. She spoke code and makes her own decision with the help her spouse
[2020-01-26] MEDS: Gabapentin 300 MG CAP PO SCH (20:25)
[2020-01-27 04:23] LABS: #Eosinphils 0.2 thou/uL (0.0-0.7); #Lymphocytes 1.5 thou/uL (1.20-3.40); #Monocytes 0.3 thou/uL (0.11-0.59); #Neutrophils 3.5 thou/uL (1.40-6.50); %Basophils 0.2 % (0.0-1.0); %Eosinophils 2.9 % (0.0-10.0); %Lymphocytes 27.5 % (21.0-51.0); %Neutrophils 64.5 % (42.0-75.0); Mean Corpuscular HGB CONC 33.6 g/dL (32.0-36.0); Mean Corpuscular Hemoglobin 31.5 pg (27.0-31.0); Mean Corpuscular Volume 93.7 fL (78.0-98.0); Mean Platelet Volume 8.5 fL (7.4-10.4); Platelet Count 95 thou/uL (130-400); RBC Distribution Width 12.6 % (11.5-14.5); Red Blood Cell (RBC) Count 2.22 mill/uL (4.20-5.40); White Blood Cell (WBC) Count 5.5 thou/uL (4.8-10.8)
[2020-01-27 04:42] LABS: Anion Gap 18 mmol/L (10-20); BUN (Urea Nitrogen) 65 mg/dL (9.8-20.1); Calc. Creatinine Clearance 9 mL/min (70-130); Calcium 8.2 mg/dL (7.8-10.44); Carbon Dioxide 25 mmol/L (23-31); Chloride 99 mmol/L (98-107); Estimated GFR-MDRD 4; Glucose 156 mg/dL (83-110); Sodium 138 mmol/L (136-145)
--- NOTE | 2020-01-27 07:27 | PRG ---
DATE OF SERVICE: 01/27/2020 SUBJECTIVE: Ms. Daniels is a 79-year-old white female with ESRD, was admitted for symptomatic anemia. She has received a total of 3 units of packed RBC. Unfortunately, the patient's hemoglobin started to drift down. On January 25, 2020, it was 8.2, yesterday it was 7.5, now it is 7.0. The patient denies any melena or hematochezia or hematemesis. The patient denies any chest pain or shortness of breath. OBJECTIVE: VITAL SIGNS: Blood pressure is 123/58, heart rate 61, respiratory rate , temperature 96.9, and O2 saturation 98%. GENERAL: The patient is awake, alert, comfortable, obese, not in distress. SKIN: Adequate turgor. HEENT: Slightly pale conjunctivae. Anicteric sclerae. No neck mass. No carotid bruits. No JVD. CHEST: No deformities. LUNGS: Clear breath sounds. HEART: Normal sinus rhythm. No murmur. No gallops. No rubs. ABDOMEN: Globular soft. Nontender. No masses. EXTREMITIES: No edema, no deformities. MEDICATIONS: January 27, 2020, was reviewed. LABORATORY DATA: January 27, 2020, white count 5.5, hemoglobin 7, and platelet count 95,000. Sodium 138, potassium 4, chloride 99, carbon dioxide 25, BUN 65, creatinine 8.7, glucose is 156, calcium 8.2. ASSESSMENT AND PLAN: 1. End-stage renal disease, stable. We will continue current Monday, Monday, and Monday hemodialysis regimen. Fluid removal only as tolerated. 2. Anemia. We may need to rule out the possibility of a gastrointestinal bleed. We will consult GI today. We will give 1 unit of packed RBC with dialysis. In addition, we are going to continue the current Epogen regimen with this patient. 3. Recheck CBC, basic met in a.m. Job ID: [id number]
[2020-01-27] MEDS: Sevelamer Carbonate 800 MG TAB PO SCH ×3 (07:57→17:58)
[2020-01-27] MEDS: Folic Acid/Vit B Comp W-C PO SCH (07:57)
[2020-01-27] MEDS: Midodrine HCl 5 MG TAB PO PRN (14:17)
--- NOTE | 2020-01-27 16:20 | PDOC.HOSPP ---
- Subjective Encounter Date: 01/27/20 Encounter Time: 10:30 Subjective: Patient seen and examined for generalized weakness with symptomatic anemia. Feels more weak today. Hemoglobin dropped to 7.0 today. Denies any hematemesis , hematochezia or melena. No chest pain, lightheadedness or syncope. - Objective Vital Signs & Weight: Vital Signs (12 hours) Temp Pulse Pulse Pulse Resp BP BP 01/27/20 11:35 98 F 64 18 01/27/20 10:04 68 71 148/62 H 122/58 L 01/27/20 08:00 98 F 63 18 01/27/20 05:11 20 BP Pulse Ox Pulse Ox Pulse Ox 01/27/20 11:35 128/79 98 01/27/20 10:04 97 95 01/27/20 08:00 142/60 H 92 L 01/27/20 05:11 Weight Weight 247 lb 5.738 oz I&O: 01/26/20 01/27/20 01/28/20 06:59 06:59 06:59 Intake Total 970 1680 0 Output Total 0 Balance 970 1680 0 Result Diagrams: 01/27/20 04:07 01/27/20 04:07 Additional Labs: Accuchecks 01/27/20 01/27/20 01/26/20 10:57 05:44 20:29 POC Glucose 219 H 167 H 185 H 01/26/20 17:33 POC Glucose 180 H EKG Reviewed by me: Yes (Sinus rhythm on telemetry) Hospitalist ROS - Review of Systems Cardiovascular: denies: chest pain, palpitations, orthopnea, paroxysmal noc. dyspnea, edema, light headedness, other - Medication Medications: Active Medications Generic Name Dose Route Start Last Admin Trade Name Freq PRN Reason Stop Dose Admin Epoetin Jesus Alberto-epbx 10,000 unit 01/24/20 12:00 01/24/20 17:08 Retacrit SC 10,000 unit Q7D KHANG Administration Gabapentin 300 mg 01/24/20 21:00 01/26/20 20:25 Neurontin PO 300 mg HS KHANG Administration Melatonin 3 mg 01/24/20 01:27 01/24/20 01:40 Melatonin PO 3 mg HS PRN Administration Insomnia Midodrine 10 mg 01/24/20 08:42 01/27/20 14:17 Proamatine PO 10 mg MWF PRN Administration Hemodialysis Pantoprazole Sodium 40 mg 01/24/20 09:00 01/27/20 07:57 Protonix PO 40 mg DAILY KHANG Administration Sevelamer Carbonate 1,600 mg 01/24/20 12:00 01/27/20 11:40 Renvela PO 1,600 mg TID-WM KHANG Administration Vitamin B Complex/Vit C/Folic Acid 1 tab 01/24/20 09:00 01/27/20 07:57 Nephro-Davi Tablet PO 1 tab DAILY KHANG Administration - Exam General Appearance: NAD Neck: supple, no JVD Heart: RRR, no gallops Respiratory: no wheezes, no ronchi Gastrointestinal: soft, non-tender, normal bowel sounds Extremities: no cyanosis Musculoskeletal: no muscle wasting Psychiatric: normal affect, A&O x 3 Hosp A/P - Plan DVT proph w/SCDs Generalized weakness/fatigue due to symptomatic anemia End-stage renal disease on hemodialysis History of renal cancer s/p partial nephrectomy Coronary artery [id number] cardiac catheterizationmild disease Hypertension 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 Will change diet to clear liquid. Patient will received 1 unit of PRBC with hemodialysis today.Continue PPIs. Monitor labs closely. Discussed case with gastroenterology and nephrology. Continue Epogen. Continue PPIs. Aspirin on hold. 01/25 Echocardiogram pending. Cortisol level was normal. Patient declined home health care. Recheck labs in a.m. DC home when cleared by nephrology. Continue Renvela, Protonix and gabapentin. Epogen every 7 days. Continue midodrine as needed. 01/24 Patient continues to feel generally weak and fatigue. Vitamin B12 folic acid were normal. H&H stable. Denies any hematemesis, melena or hematochezia. Will check cortisol and TSH in a.m. Echocardiogram is pending at this time. Physical therapy evaluation. Will consult showcase trimmer for home health care. Patient declined inpatient rehab or detention facility. Continue midodrine as needed. Check orthostatic vitals in a.m. GI follow-up as outpatient. Continue PPIs 01/23 Patient will receive another unit of PRBC with dialysis. Her hemoglobin this morning was 5.6. Will check iron profile. Her Hemoccult 3 as outpatient 1 negative. However the Hemoccult today came back positive. I discussed with gastroenterology airport operations officer who recommended outpatient follow-up. Symptomatically she is feeling better after blood transfusion. She will undergo dialysis today. Monitor patient overnight. Continue PPIs. Recheck labs in a.m. If patient has been started. Home medications will be verified. Continue sliding scale. Patient understands the above plan of care. She spoke code and makes her own decision with the help her spouse
[2020-01-27] MEDS ORDERED: GoLYTELY 4,000 ml Bottle PO SCH (19:15)
[2020-01-27] MEDS: Gabapentin 300 MG CAP PO SCH (20:52)
--- NOTE | 2020-01-27 23:35 | CON ---
DATE OF CONSULTATION: 01/27/2020 REASON FOR CONSULTATION: Anemia with unknown etiology. CONSULTING PROVIDER: Bowen Andrade MD HISTORY OF PRESENT ILLNESS: The patient is a 79-year-old female with past medical history of end-stage renal disease on hemodialysis, renal cell carcinoma status post resection, coronary artery disease, hypertension, diabetes, obstructive sleep apnea, and GERD, initially presenting with complaints of generalized malaise and shaking after dialysis. She states that she was in her usual state of health until approximately 3 to 4 days ago when she began having increased shaking of her body with tremor after too much fluid was pulled off during dialysis. This was associated with increased fatigue/somnolence and profound weakness that continued into the next day. She also complained of increased shortness of breath with minimal exertion that ultimately prompted the patient's business applications analyst to obtain a repeat CBC. On evaluation of her hemoglobin and hematocrit, she was noted to have a decrease from her baseline and was subsequently admitted to the hospital for further evaluation. During the course of this admission, she has been given approximately 2 units of PRBCs thus far with downtrending of her H and H after administration of both. However, she denies any nausea, vomiting, fevers, chills, abdominal pain, hematemesis, melena, hematochezia, dysphagia, odynophagia, diarrhea, or constipation. REVIEW OF SYSTEMS: A 10-category review of systems was obtained with all responses negative except for the pertinent positives as listed in HPI. PAST MEDICAL HISTORY: As per HPI. PAST SURGICAL HISTORY: Partial nephrectomy, hysterectomy, peritoneal dialysis shunt, inguinal hernia repair, arteriovenous fistula in the left upper extremity and right ankle surgery. FAMILY HISTORY: Denies any GI malignancies, although her aunt was diagnosed with colon cancer. Denies any GI malignancies in her immediate family although an aunt was diagnosed with colon cancer. SOCIAL HISTORY: Denies any tobacco or illicit drug use. Drinks approximately 1 to 2 drinks every 1 to 3 weeks. OUTPATIENT MEDICATIONS: Reviewed. ALLERGIES: AMOXICILLIN AND HYDRALAZINE. PHYSICAL EXAMINATION: VITAL SIGNS: Temperature 98, pulse 65, blood pressure 157/66, respiratory rate 16, saturating 98% on room air. GENERAL: The patient was lying in bed, in no acute distress. Alert and oriented x4. HEENT: Normocephalic, atraumatic. NECK: Supple. No JVD or scleral icterus noted. CARDIOVASCULAR: Regular rate and rhythm with no discernible murmurs, gallops, or rubs. RESPIRATORY: Clear to auscultation bilaterally with no discernible wheezes or rales. ABDOMEN: Normoactive bowel sounds. Soft, nontender, and nondistended. EXTREMITIES: No cyanosis, clubbing, or edema. LABORATORY DATA: CBC with a white blood cell count of 5.5, hemoglobin 7, hematocrit 20.8, platelets 95. Chemistry with a sodium of 138, potassium 4, chloride 99, CO2 of 25, BUN 65, creatinine 8.7, glucose 156. Iron 185, ferritin 2261, TIBC 230. IMAGING DATA: No current GI imaging is available for review. ASSESSMENT AND PLAN: The patient is a 79-year-old female with past medical history of renal cell carcinoma, status post partial nephrectomy, coronary artery disease, hypertension, diabetes, obstructive sleep apnea, gastroesophageal reflux disease, and end-stage renal disease on hemodialysis, presenting with symptomatic anemia with no overt GI bleeding. Symptomatic anemia. The patient is presenting with a longstanding history of end-stage renal disease for which the patient has been on hemodialysis for years. However, more recently, she has been having slow downtrending of her H and H despite infusion of PRBCs and administration of Epogen during dialysis. 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 Repeat EGD has not been performed at least from what I can see in our system. Colonoscopy performed at that same time also showed polyps within the colon at the hepatic flexure and rectum with polypectomy consistent with hyperplastic polyps. At this time, the likelihood of Buitrago esophagus contributing to her symptomatic anemia is highly unlikely, although acid reflux resulting in Buitrago's could potentially do so. Given that her hyperplastic polyps were removed approximately 10 years ago, the likelihood of a colonic malignancy is lower but cannot be ruled out at this time. As such for workup of her anemia, I would recommend an upper and lower endoscopy. RECOMMENDATIONS: 1. Would continue to trend her H and H and transfuse as necessary to maintain an H and H of 7/21. 2. Continue to monitor clinically for signs of active GI bleeding. 3. Would put the patient on a clear liquid diet today with GoLYTELY prep tonight in anticipation of both EGD and colonoscopy tomorrow. 4. Would plan for both EGD and colonoscopy for intraluminal evaluation of possible bleeding source. Given her current iron indices, they are more indicative of anemia of renal disease, so if no etiology is seen during endoscopies, we would defer to the patient's business applications analyst for further titration of erythropoietin. 5. Would continue to hold any anticoagulation in light of possible GI bleeding. We will continue to follow. Please call with any questions. Job ID: [id number]
[2020-01-28 04:11] LABS: #Eosinphils 0.1 thou/uL (0.0-0.7); #Lymphocytes 1.2 thou/uL (1.20-3.40); #Monocytes 0.2 thou/uL (0.11-0.59); #Neutrophils 4.3 thou/uL (1.40-6.50); %Basophils 0.5 % (0.0-1.0); %Eosinophils 1.9 % (0.0-10.0); %Lymphocytes 20.6 % (21.0-51.0); %Monocytes 3.7 % (0.0-10.0); %Neutrophils 73.3 % (42.0-75.0); Hemoglobin 9.2 g/dL (12.0-16.0); Mean Corpuscular HGB CONC 34.5 g/dL (32.0-36.0); Mean Corpuscular Hemoglobin 32.4 pg (27.0-31.0); Mean Corpuscular Volume 93.9 fL (78.0-98.0); Mean Platelet Volume 8.5 fL (7.4-10.4); Platelet Count 104 thou/uL (130-400); RBC Distribution Width 12.5 % (11.5-14.5); Red Blood Cell (RBC) Count 2.84 mill/uL (4.20-5.40); White Blood Cell (WBC) Count 5.9 thou/uL (4.8-10.8)
[2020-01-28 04:25] LABS: Anion Gap 20 mmol/L (10-20); BUN (Urea Nitrogen) 31 mg/dL (9.8-20.1); Calc. Creatinine Clearance 16 mL/min (70-130); Calcium 8.4 mg/dL (7.8-10.44); Carbon Dioxide 22 mmol/L (23-31); Chloride 96 mmol/L (98-107); Estimated GFR-MDRD 8; Glucose 142 mg/dL (83-110); Potassium 4.1 mmol/L (3.5-5.1); Sodium 134 mmol/L (136-145)
[2020-01-28] MEDS: Sevelamer Carbonate 800 MG TAB PO SCH ×3 (08:42→18:52)
--- NOTE | 2020-01-28 09:41 | PRG ---
DATE OF SERVICE: 01/28/2020 SUBJECTIVE: Ms. Daniels is a 79-year-old white female with ESRD and currently on maintenance hemodialysis. She was admitted for symptomatic anemia. She was given p.r.n. blood transfusion. She has received a total of 4 units. Despite of the blood transfusion, her hemoglobin was noted to have dropped down. GI consult was done and our plan is to do an upper and lower GI endoscopy. No new complaints today. No chest pain or shortness of breath. OBJECTIVE: VITAL SIGNS: Blood pressure 132/57, heart rate 63, respiratory rate 17, temperature 99, pulse ox 99%. on room air. GENERAL: Awake, alert, obese, comfortable, not in distress. SKIN: Adequate turgor. HEENT: Slightly pale conjunctivae. Anicteric sclerae. NECK: No neck mass. No carotid bruits. No JVD. CHEST: No deformities. LUNGS: Clear breath sounds. HEART: Normal sinus rhythm. No murmur. No gallops. No rubs. ABDOMEN: Globular, soft, and nontender. No masses. EXTREMITIES: No edema. No deformities. MEDICATIONS: Medications of January 28, 2020, reviewed. LABORATORY DATA: Laboratories of January 28, 2020, white count 5.9, hemoglobin 9.2. Sodium 134, potassium 4.1, chloride 96, carbon dioxide 22, BUN 31, creatinine 5.21, glucose 142, calcium 8.4. ASSESSMENT AND PLAN: 1. End-stage renal disease, stable, tolerating current hemodialysis regimen. We are using no heparin with dialysis due to the anemia. Tolerating fluid removal. 2. Anemia-status post blood transfusion-1 unit was given yesterday. GI has been consulted. The plan is to do an upper and lower GI endoscopy. In addition, we will continue the weekly Epogen regimen with this patient. Continue supportive care. Recheck CBC and basic metabolic panel in a.m. Job ID: [id number]
[2020-01-28] MEDS ORDERED: PROPOFOL 200 MG/20 ML VIAL ONE (09:47)
--- NOTE | 2020-01-28 10:49 | PDOC.HOSPP ---
- Subjective Encounter Date: 01/28/20 Encounter Time: 08:30 Subjective: Patient seen for follow-up for generalized weakness secondary to symptomatic anemia. She reports that she did not sleep well because she was having bowel prep. - Objective Vital Signs & Weight: Vital Signs (12 hours) Temp Pulse Resp BP BP Pulse Ox 01/28/20 07:31 99.0 F 63 17 132/57 L 99 01/28/20 03:01 97.6 F 67 15 124/66 97 01/27/20 23:10 72 15 Weight Weight 245 lb 1.6 oz I&O: 01/27/20 01/28/20 01/29/20 06:59 06:59 06:59 Intake Total 1680 4324 Balance 1680 4324 Result Diagrams: 01/28/20 03:49 01/28/20 03:49 Additional Labs: Accuchecks 01/28/20 01/27/20 01/27/20 06:11 20:42 17:02 POC Glucose 126 H 181 H 121 H 01/27/20 10:57 POC Glucose 219 H I reviewed patient's labs and MAR EKG Reviewed by me: Yes (Telemetry: NSR) Hospitalist ROS - Review of Systems Cardiovascular: denies: chest pain, palpitations, orthopnea, paroxysmal noc. dyspnea, edema, light headedness Gastrointestinal: denies: nausea, vomiting, abdominal pain, diarrhea, constipation, melena, hematochezia - Medication Medications: Active Medications Generic Name Dose Route Start Last Admin Trade Name Freq PRN Reason Stop Dose Admin Epoetin Jesus Alberto-epbx 10,000 unit 01/24/20 12:00 01/24/20 17:08 Retacrit SC 10,000 unit Q7D KHANG Administration Gabapentin 300 mg 01/24/20 21:00 01/27/20 20:52 Neurontin PO 300 mg HS KHANG Administration Melatonin 3 mg 01/24/20 01:27 01/24/20 01:40 Melatonin PO 3 mg HS PRN Administration Insomnia Midodrine 10 mg 01/24/20 08:42 01/27/20 14:17 Proamatine PO 10 mg MWF PRN Administration Hemodialysis Pantoprazole Sodium 40 mg 01/24/20 09:00 01/27/20 07:57 Protonix PO 40 mg DAILY KHANG Administration Sevelamer Carbonate 1,600 mg 01/24/20 12:00 01/28/20 08:42 Renvela PO Not Given TID-WM [facility] Vitamin B Complex/Vit C/Folic Acid 1 tab 01/24/20 09:00 01/27/20 07:57 Nephro-Davi Tablet PO 1 tab DAILY KHANG Administration - Exam General Appearance: awake alert Eye: anicteric sclera Neck: supple, symmetric Heart: RRR Respiratory: CTAB Gastrointestinal: soft, non-tender, normal bowel sounds Skin: no rashes Psychiatric: normal affect, normal behavior Hosp A/P - Plan symptomatic anemia Generalized weakness End-stage renal disease on hemodialysis GERD History of renal cancer s/p partial nephrectomy Coronary artery [id number] cardiac catheterizationmild disease Hypertension 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 Patient is on Epogen. Dialysis per nephrology service. Patient is using CPAP at bedtime. Echo report pending. We will await results of scope studies. 01/26 Gastroenterology consult placed by nephrology this morning. Will change diet to clear liquid. Patient will received 1 unit of PRBC with hemodialysis today.Continue PPIs. Monitor labs closely. Discussed case with gastroenterology and nephrology. Continue Epogen. Continue PPIs. Aspirin on hold. 01/25 Echocardiogram pending. Cortisol level was normal. Patient declined home health care. Recheck labs in a.m. DC home when cleared by nephrology. Continue Renvela, Protonix and gabapentin. Epogen every 7 days. Continue midodrine as needed. 01/24 Patient continues to feel generally weak and fatigue. Vitamin B12 folic acid were normal. H&H stable. Denies any hematemesis, melena or hematochezia. Will check cortisol and TSH in a.m. Echocardiogram is pending at this time. Physical therapy evaluation. Will consult piano case maker for home health care. Patient declined inpatient rehab or [facility] facility. Continue midodrine as needed. Check orthostatic vitals in a.m. GI follow-up as outpatient. Continue PPIs 01/23 Patient will receive another unit of PRBC with dialysis. Her hemoglobin this morning was 5.6. Will check iron profile. Her Hemoccult 3 as outpatient 1 negative. However the Hemoccult today came back positive. I discussed with gastroenterology consumer services consultant who recommended outpatient follow-up. Symptomatically she is feeling better after blood transfusion. She will undergo dialysis today. Monitor patient overnight. Continue PPIs. Recheck labs in a.m. If patient has been started. Home medications will be verified. Continue sliding scale. Patient understands the above plan of care. She spoke code and makes her own decision with the help her spouse
[2020-01-28] MEDS ORDERED: Ondansetron HCl/PF 4 MG/2 ML Vial IVP PRN (11:39)
[2020-01-28] MEDS: Folic Acid/Vit B Comp W-C PO SCH (12:28)
--- NOTE | 2020-01-28 15:50 | OP ---
DATE OF PROCEDURE: 01/28/2020 PROCEDURES PERFORMED: Esophagogastroduodenoscopy and colonoscopy with snare polypectomy. PREOPERATIVE DIAGNOSES: Anemia and gastrointestinal bleed. DESCRIPTION OF PROCEDURE: Informed consent was obtained from the patient. She was sedated with total intravenous anesthesia. The bite block was placed, and the endoscope was advanced easily to the second portion of the duodenum, and retroflexion was performed in the stomach. The esophagus was normal. The GE junction was normal. The stomach was normal including retroflexed views. The pylorus and first and second portions of the duodenum were normal. The patient was turned around. Rectal exam was performed and was normal. The colonoscope was advanced to the cecum, where the ileocecal valve and appendiceal orifice were clearly identified. I removed a 6 mm polyp from the cecum by snare cautery polypectomy. I removed a 5 mm polyp from the sigmoid colon by cold snare polypectomy. Retroflexed views in the rectum were unremarkable. IMPRESSION: 1. Normal esophagogastroduodenoscopy. 2. 6 mm cecum polyp removed by hot snare. 3. 5 mm sigmoid polyp removed by cold snare. 4. Otherwise normal colonoscopy. RECOMMENDATIONS: 1. Await histopathology. 2. She should not require future endoscopy or colonoscopy based on age of a screening alone. 3. Her anemia is likely related to anemia of chronic disease or chronic renal disease. 4. GI will sign off. Please call if we can be of assistance. Job ID: [id number]
[2020-01-28] MEDS: Gabapentin 300 MG CAP PO SCH (20:31)
[2020-01-29 04:31] LABS: #Eosinphils 0.1 thou/uL (0.0-0.7); #Lymphocytes 1.5 thou/uL (1.20-3.40); #Monocytes 0.2 thou/uL (0.11-0.59); #Neutrophils 2.4 thou/uL (1.40-6.50); %Basophils 0.2 % (0.0-1.0); %Eosinophils 1.9 % (0.0-10.0); %Lymphocytes 35.5 % (21.0-51.0); %Monocytes 4.9 % (0.0-10.0); %Neutrophils 57.4 % (42.0-75.0); Hemoglobin 8.1 g/dL (12.0-16.0); Mean Corpuscular HGB CONC 34.7 g/dL (32.0-36.0); Mean Corpuscular Hemoglobin 32.2 pg (27.0-31.0); Mean Corpuscular Volume 92.8 fL (78.0-98.0); Platelet Count 85 thou/uL (130-400); RBC Distribution Width 12.2 % (11.5-14.5); Red Blood Cell (RBC) Count 2.52 mill/uL (4.20-5.40); White Blood Cell (WBC) Count 4.2 thou/uL (4.8-10.8)
[2020-01-29 04:48] LABS: Anion Gap 19 mmol/L (10-20); BUN (Urea Nitrogen) 44 mg/dL (9.8-20.1); Calc. Creatinine Clearance 11 mL/min (70-130); Calcium 7.8 mg/dL (7.8-10.44); Carbon Dioxide 23 mmol/L (23-31); Chloride 99 mmol/L (98-107); Estimated GFR-MDRD 6; Glucose 143 mg/dL (83-110); Potassium 3.8 mmol/L (3.5-5.1); Sodium 137 mmol/L (136-145)
[2020-01-29] MEDS: Midodrine HCl 5 MG TAB PO PRN (07:44)
[2020-01-29 09:14] LABS: HBSAg Index 0.26 S/CO (0-0.99); Hep B Surf Ag Non-Reactive S/CO (NonReactive)
--- NOTE | 2020-01-29 09:15 | PRG ---
DATE OF SERVICE: 01/29/2020 SUBJECTIVE: Ms. Daniels is a 79-year-old white female with ESRD and on maintenance hemodialysis, initially admitted for symptomatic anemia. Anemia is much improved with blood transfusion. Currently also on Epogen. She also had a GI evaluation-upper and lower GI endoscopy did not show any active bleeding. No other complaints. No chest pain or shortness of breath. OBJECTIVE: VITAL SIGNS: Blood pressure 140/62, heart rate 62, respiratory rate 15, temperature 98.2, O2 saturations 98%. GENERAL: The patient is awake, alert, comfortable, obese, not in distress. SKIN: Adequate turgor. HEENT: Pinkish conjunctivae. Anicteric sclerae. No neck mass. No carotid bruits. No JVD. CHEST: No deformities. LUNGS: Clear breath sounds. No wheezing. No crackles. HEART: Normal sinus rhythm. No murmur. No gallops. No rubs. ABDOMEN: Globular, soft, nontender. No masses. EXTREMITIES: No edema. No deformities. MEDICATIONS: Medications of January 29, 2020, reviewed. LABORATORY DATA: Laboratories of January 29, 2020; white count 4.2, hemoglobin 8.1. Sodium 137, potassium 3.8, chloride 99, carbon dioxide 23, BUN 44, creatinine 7.14, calcium 7.8. ASSESSMENT AND PLAN: 1. End-stage renal disease, stable. Continue heparin free hemodialysis. Fluid removal only as tolerated. No changes will be made with the current dialysis regimen. 2. Anemia. P.r.n. blood transfusion. Continue weekly Epogen. Upper GI and lower GI endoscopy showed no active bleeding. Consider referring to Hematology as an outpatient. Agree with current management. Job ID: [id number]
[2020-01-29] MEDS: Folic Acid/Vit B Comp W-C PO SCH (12:04)
[2020-01-29] MEDS: Sevelamer Carbonate 800 MG TAB PO SCH ×2 (12:04→13:33)
[2020-01-29 12:08] VITALS: BP 141/65; TEMP 98.1
--- NOTE | 2020-01-30 01:19 | DIS ---
DATE OF ADMISSION: 01/23/2020 DATE OF DISCHARGE: 01/29/2020 PRIMARY CARE PROVIDER: Dr. Trip Moody. DISCHARGE DIAGNOSES: 1. Symptomatic anemia. 2. Generalized weakness. 3. Polyps in cecum and sigmoid colon. 4. COVID-19 test negative. 5. Hyponatremia. 6. Anemia of chronic disease. CONDITION OF PATIENT ON THE DAY OF DISCHARGE: Stable. I assessed Ms. Daniels on the day of discharge. She denies any chest pain or shortness of breath. Vital signs are stable. S1 and S2 are heard, regular. Lungs are clear to auscultation bilaterally. CONSULTATIONS DURING THIS HOSPITALIZATION: Gastroenterology, Dr. Hurst; Nephrology, Dr. Hector. HOSPITAL COURSE: Ms. Daniels is a pleasant 79-year-old lady, who was admitted to [facility] on January 23, 2020, for severe symptomatic anemia. She was seen by Nephrology Service for maintenance dialysis as well as by Gastroenterology Service. She had an elevated iron level of 185, low TIBC of 230, and elevated ferritin of 2261. Vitamin B12 level was greater than 2000. Folate level was in the normal range at 14.7. On January 27, she underwent bidirectional scopes. EGD was normal. She had a 6 mm cecal polyp removed by hot snare and 5 mm sigmoid polyp removed by cold snare. She received 2 units of packed RBC transfusion on January 24, 2020, and 1 unit packed RBC transfusion on January 27, 2020. Her hemoglobin increased from 7.0 to 9.2 on January 28, 2020. It dropped to 8.1 on January 29, 2020. She is advised to have her hemoglobin rechecked in 5 to 7 days' time. She also had 2D echocardiogram, which showed left ventricular ejection fraction of 60% to 65%, E/A flow reversal suggestive of diastolic dysfunction, normal-sized right ventricle cavity, [id number] dilated left atrium, moderately enlarged right atrial size, mild mitral annular calcification, trace mitral regurgitation, tricuspid aortic valve, and trace tricuspid regurgitation. Many thanks for allowing me to participate in your patient's care. Please feel free to contact me with any questions or concerns. DISCHARGE MEDICATIONS: 1. Dialyvite 800 one tablet daily. 2. Gabapentin 300 mg at bedtime. 3. Omeprazole 20 mg at bedtime. 4. Renvela 1600 mg 3 times a day. 5. Midodrine 10 mg on Monday, Monday, and Monday as needed. FOLLOWUP: Post acute care followup: With primary care provider in 3 days and with Gastroenterology, Dr. Sosa in 2 weeks. ACTIVITY: No restrictions. DIET: Renal and heart healthy. DISCHARGE DESTINATION: Home. TIME SPENT: Total amount of time spent coordinating this discharge: Thirty-two minutes. Job ID: [id number]
== END 2020-01-29 13:30 | disposition home or self-care (01) | DRG 682 ==
LOC: ERS 17:44 → 2NO 21:10
PROVIDERS: ADMIT Internal Medicine; ATTEND Internal Medicine
PROC: 30233N1 Transfusion of Nonautologous Red Blood Cells into Peripheral Vein, Percutaneous Approach (ICD-10-PCS; principal; 2020-01-24)
PROC: 5A1D70Z Performance of Urinary Filtration, Intermittent, Less than 6 Hours Per Day (ICD-10-PCS; 2020-01-24)
PROC: 5A09357 Assistance with Respiratory Ventilation, Less than 24 Consecutive Hours, Continuous Positive Airway Pressure (ICD-10-PCS; 2020-01-25)
PROC: 0DJ08ZZ Inspection of Upper Intestinal Tract, Via Natural or Artificial Opening Endoscopic (ICD-10-PCS; 2020-01-28)
PROC: 0DBH8ZZ Excision of Cecum, Via Natural or Artificial Opening Endoscopic (ICD-10-PCS; 2020-01-28)
PROC: 0DBN8ZZ Excision of Sigmoid Colon, Via Natural or Artificial Opening Endoscopic (ICD-10-PCS; 2020-01-28)
DX: I12.0 Hypertensive chronic kidney disease with stage 5 chronic kidney disease or end stage renal disease (principal); N18.6 End stage renal disease; E87.1 Hypo-osmolality and hyponatremia; D63.1 Anemia in chronic kidney disease; E11.22 Type 2 diabetes mellitus with diabetic chronic kidney disease; I25.10 Atherosclerotic heart disease of native coronary artery without angina pectoris; K63.5 Polyp of colon; G47.33 Obstructive sleep apnea (adult) (pediatric); K21.9 Gastro-esophageal reflux disease without esophagitis; Z20.828 Contact with and (suspected) exposure to other viral communicable diseases; I08.3 Combined rheumatic disorders of mitral, aortic and tricuspid valves; Z99.2 Dependence on renal dialysis; Z90.5 Acquired absence of kidney; Z88.1 Allergy status to other antibiotic agents; Z88.8 Allergy status to other drugs, medicaments and biological substances; Z90.710 Acquired absence of both cervix and uterus; Z85.048 Personal history of other malignant neoplasm of rectum, rectosigmoid junction, and anus; Z85.528 Personal history of other malignant neoplasm of kidney
CPT/HCPCS: 36415; 36416; 36430; 71045; 80048; 80053; 82274; 82533; 82550; 82553; 82607; 82728; 82746; 83540; 83550; 83735; 84100; 84443; 84484; 85025; 85046; 85060; 86850; 86870; 86900; 86901; 86922; 87340; 87635; 88305; 90935; 93005; 93306; G0257; J1815; J2704; P9016; Q5105; U0003

== ENCOUNTER 2020-02-05 15:41 | Emergency (ER) | payer MEDICARE ==
[2020-02-05 16:52] LABS: #Lymphocytes 0.4 thou/uL (1.20-3.40); #Monocytes 0.1 thou/uL (0.11-0.59); #Neutrophils 2.4 thou/uL (1.40-6.50); %Eosinophils 0.3 % (0.0-10.0); %Lymphocytes 14.7 % (21.0-51.0); %Monocytes 4.3 % (0.0-10.0); %Neutrophils 80.8 % (42.0-75.0); Hemoglobin 7.3 g/dL (12.0-16.0); Mean Corpuscular HGB CONC 34.4 g/dL (32.0-36.0); Mean Corpuscular Hemoglobin 31.6 pg (27.0-31.0); Mean Corpuscular Volume 91.9 fL (78.0-98.0); Mean Platelet Volume 7.7 fL (7.4-10.4); Platelet Count 126 thou/uL (130-400); RBC Distribution Width 11.9 % (11.5-14.5); Red Blood Cell (RBC) Count 2.32 mill/uL (4.20-5.40); White Blood Cell (WBC) Count 2.9 thou/uL (4.8-10.8)
[2020-02-05 17:11] LABS: ALT (SGPT) 24 U/L (8-55); AST (SGOT) 22 U/L (5-34); Albumin 3.8 g/dL (3.4-4.8); Alkaline Phosphatase 97 U/L (40-110); Anion Gap 19 mmol/L (10-20); BUN (Urea Nitrogen) 18 mg/dL (9.8-20.1); Bilirubin, Total 0.8 mg/dL (0.2-1.2); Calc. Creatinine Clearance 0 mL/min (70-130); Calcium 8.8 mg/dL (7.8-10.44); Carbon Dioxide 26 mmol/L (23-31); Chloride 96 mmol/L (98-107); Estimated GFR-MDRD 13; Globulin 3.1 g/dL (2.4-3.5); Glucose 202 mg/dL (83-110); Potassium 3.4 mmol/L (3.5-5.1); Protein, Total 6.9 g/dL (6.0-8.3); Sodium 138 mmol/L (136-145)
--- NOTE | 2020-02-08 13:41 | EKG ---
Test Reason : Blood Pressure : / mmHG Vent. Rate : 089 BPM Atrial Rate : 089 BPM P-R Int : 166 ms QRS Dur : 098 ms QT Int : 392 ms P-R-T Axes : 032 -28 033 degrees QTc Int : 476 ms Normal sinus rhythm Normal ECG Confirmed by DARLYN MCMAHON DO ([id number]), non linear editor ANNIE SIMS ([id number] on 02/08/2020 1:40:53 PM Referred By: Confirmed By:DARLYN MCMAHON DO
== END 2020-02-05 19:07 | disposition home or self-care (01) ==
LOC: ERS 15:41
DX: D64.9 Anemia, unspecified (principal); E66.9 Obesity, unspecified; I10 Essential (primary) hypertension; Z79.899 Other long term (current) drug therapy
CPT/HCPCS: 80053; 85025; 86850; 86900; 86901; 86922; 93005; 94760

== ENCOUNTER 2020-02-10 15:46 | Inpatient (IN) | payer MEDICARE, OTHER ==
[2020-02-10 17:26] LABS: #Lymphocytes 0.8 thou/uL (1.20-3.40); #Monocytes 0.2 thou/uL (0.11-0.59); %Basophils 0.1 % (0.0-1.0); %Eosinophils 0.7 % (0.0-10.0); %Lymphocytes 19.8 % (21.0-51.0); %Monocytes 4.9 % (0.0-10.0); %Neutrophils 74.4 % (42.0-75.0); Hemoglobin 6.5 g/dL (12.0-16.0); Mean Corpuscular HGB CONC 35.4 g/dL (32.0-36.0); Mean Corpuscular Hemoglobin 32.2 pg (27.0-31.0); Mean Corpuscular Volume 90.7 fL (78.0-98.0); Mean Platelet Volume 7.4 fL (7.4-10.4); Platelet Count 116 thou/uL (130-400); RBC Distribution Width 11.9 % (11.5-14.5); Red Blood Cell (RBC) Count 2.02 mill/uL (4.20-5.40)
[2020-02-10 17:51] LABS: ALT (SGPT) 24 U/L (8-55); AST (SGOT) 20 U/L (5-34); Alkaline Phosphatase 90 U/L (40-110); Anion Gap 19 mmol/L (10-20); BUN (Urea Nitrogen) 19 mg/dL (9.8-20.1); Calc. Creatinine Clearance 0 mL/min (70-130); Calcium 9.4 mg/dL (7.8-10.44); Carbon Dioxide 27 mmol/L (23-31); Chloride 95 mmol/L (98-107); Estimated GFR-MDRD 12; Globulin 3.4 g/dL (2.4-3.5); Glucose 200 mg/dL (83-110); Potassium 3.9 mmol/L (3.5-5.1); Protein, Total 7.4 g/dL (6.0-8.3); Sodium 137 mmol/L (136-145)
[2020-02-10] MEDS ORDERED: Ondansetron PF 4 MG/2 ML Vial ONE (17:53)
--- NOTE | 2020-02-10 19:00 | PDOC.HHP ---
Hospitalist HPI - History of Present Illness Weakness, anemia History of Present Illness: Ms. Daniels is a 79F with a PMHx of renal cancer s/p R partial nephrectomy, ESRD on MWF dialysis, BECKY, who was sent to the ED by her proposal director, Dr. Hector for a low Hg of 6.0 associated with weakness. Pt reports fatigue and worsening weakness over the past few days. Denies chest pain, endorses dizziness and dyspnea on exertion. Of note she was recently admitted and discharged on 01/29/20 for symptomatic anemia. At that time EGD and colonosopy was performed which showed only polyps and no evidence of any bleeding. Pt denies melena, hematochezia, hematuria. Patient reports that she has had several blood transfusions as an outpatient over the past few months. Patient recently referred to hematology, Dr. Acevedo. In the ED H/H 6.5/18.3, BUN 19/3.37. Vital signs 134/25, 77, 18, 98.4, 95% on RA. Patient type and crossed, however since patient has atypical antibodies, blood is being sent from [place]. Patient admitted to hospital medicine service for monitoring. Hospitalist ROS - Review of Systems Constitutional: reports: weakness Eyes: denies: pain, vision change, conjunctivae inflammation, eyelid inflammation, redness, other Respiratory: denies: cough, dry, shortness of breath, hemoptysis, SOB with excertion, pleuritic pain, sputum, wheezing, other Cardiovascular: reports: light headedness. denies: chest pain, palpitations, orthopnea, paroxysmal noc. dyspnea, edema, other Gastrointestinal: denies: nausea, vomiting, abdominal pain, diarrhea, constipation, melena, hematochezia, other Genitourinary: denies: dysuria, frequency, incontinence, hematuria, retention, other Musculoskeletal: denies: neck pain, shoulder pain, arm pain, back pain, hand pain, leg pain, foot pain, other Skin: denies: rash, lesions, eve, bruising, other Neurological: denies: weakness, numbness, incoordination, change in speech, confusion, seizures, other - Medication Medications: Home medications include: 1. Revenla 2. Omeprazole 3. Midodrine (PRN at dialysis sessions) 4. Gabapentin 5. Renal mutlti-vitamin Allergies to amoxicillin, hydralazine Hospitalist History - Past Medical History Other Medical History: History of ESRD, renal CA, HTN, anemia, asthma, sleep apnea - Past Surgical History Other Surgical History: R partial nephrectomy, hysterectomy, ankle surgery, HD fistula - Family History Family History: reports: no pertinent history - Social History Smoking Status: Never smoker Alcohol: reports: Rare Drugs: reports: none Living Situation: With Family Activity level: independent ambulation - Exam General Appearance: NAD, awake alert General - other findings: pale Eye: PERRL, anicteric sclera ENT: normocephalic atraumatic, no oropharyngeal lesions, moist mucosa Neck: supple, symmetric, no JVD, no thyromegaly, no lymphadenopathy, no carotid bruit Heart: RRR, no murmur, no gallops, no rubs, normal peripheral pulses Respiratory: CTAB, no wheezes, no rales, no ronchi, normal chest expansion, no tachypnea, normal percussion Gastrointestinal: soft, non-tender, non-distended, normal bowel sounds, no hepatomegaly, no splenomegaly, no bruit Gastrointestinal - other findings: palpable abdominal wall defect s/p hernia repair, NTTP Extremities: no cyanosis, no clubbing, 1+ LE edema Skin: no lesions, no rashes Neurological: cranial nerve grossly intact, normal sensation to touch, no weak ness, no focal deficits, no new deficit Musculoskeletal: normal tone, normal strength, no muscle wasting Psychiatric: normal affect, normal behavior, A&O x 3 Hospitalist Results - Labs Result Diagrams: 02/10/20 17:16 02/10/20 17:16 Lab results: WBC 4.0 thou/uL (4.8-10.8) L 02/10/20 17:16 Hgb 6.5 g/dL (12.0-16.0) L 02/10/20 17:16 Hct 18.3 % (36.0-47.0) L 02/10/20 17:16 MCV 90.7 fL (78.0-98.0) 02/10/20 17:16 Plt Count 116 thou/uL (130-400) L 02/10/20 17:16 Neutrophils % 74.4 % (42.0-75.0) 02/10/20 17:16 Sodium 137 mmol/L (136-145) 02/10/20 17:16 Potassium 3.9 mmol/L (3.5-5.1) 02/10/20 17:16 Chloride 95 mmol/L (98-107) L 02/10/20 17:16 Carbon Dioxide 27 mmol/L (23-31) 02/10/20 17:16 BUN 19 mg/dL (9.8-20.1) 02/10/20 17:16 Creatinine 3.74 mg/dL (0.6-1.1) H 02/10/20 17:16 Glucose 200 mg/dL (83-110) H 02/10/20 17:16 Calcium 9.4 mg/dL (7.8-10.44) 02/10/20 17:16 Total Bilirubin 1.0 mg/dL (0.2-1.2) 02/10/20 17:16 AST 20 U/L (5-34) 02/10/20 17:16 ALT 24 U/L (8-55) 02/10/20 17:16 Alkaline Phosphatase 90 U/L (40-110) 02/10/20 17:16 Serum Total Protein 7.4 g/dL (6.0-8.3) 02/10/20 17:16 Albumin 4.0 g/dL (3.4-4.8) 02/10/20 17:16 Hospitalist H&P A/P - Problem (1) Symptomatic anemia Code(s): D64.9 - ANEMIA, UNSPECIFIED Status: Acute (2) End stage renal disease on dialysis Code(s): N18.6 - END STAGE RENAL DISEASE; Z99.2 - DEPENDENCE ON RENAL DIALYSIS Status: Acute (3) History of renal cell cancer Code(s): Z85.528 - PERSONAL HISTORY OF OTHER MALIGNANT NEOPLASM OF KIDNEY Status: Acute (4) Obstructive sleep apnea on CPAP Code(s): G47.33 - OBSTRUCTIVE SLEEP APNEA (ADULT) (PEDIATRIC); Z99.89 - DEPENDENCE ON OTHER ENABLING MACHINES AND DEVICES Status: Acute - Plan Plan: Symptomatic Anemia: Pt with anemia requiring recurrent transfusions over the past few months. Recent admission on 01/25-01/29/20 for symptomatic anemia. EGD and colo did not show any bleeding at that time. Patient with ESRD, follows with Dr. Hector. H/H on presentation .10/06.3. Type and cross showed atypical antibodies, so pRBCs from [place] are in-transit. PLAN: -Tele monitoring -pRBCs, when arrives from [place] -trend H/H, Fe studies -Encourage oral fluids -Consult nephrology for EPO consideration Pancytopenia: 79F hx of ESRD and renal cancer s/p R partial nephrectomy. CBC on admission shows pancytopenia with WBC of 4.0, H/H 6.5/18.3, and platelets of 116. HD stable. Pt afebrile with no current signs of infection. Denies fever, night- sweats, or weight loss. Rare to no etoh use. Patient recently started with outpatient hematology, Dr. Cheung. Will consult heme/onc while admitted. PLAN: -Heme/onc consult, reccs appreciated -Trend counts -LFTs, PT/INR ESRD: On MWF dialysis. Follows with Dr. Hector. Anemia likely component of anemia of chronic disease. Will reach out to nephrology to consider EPO. PLAN: -Continue MWF dialysis -Continue home renvela, renal vitamin Obstructive Sleep Apnea: Hx of BECKY, uses CPAP at home. PLAN: -Continue home CPAP at night DVT Prophylaxis: SCD boots FULL CODE Case discussed with attending physician, Dr. Ignacio
[2020-02-10] MEDS ORDERED: Acetaminophen 325 MG TAB PO PRN (20:01)
[2020-02-11 04:26] LABS: PTT 29.8 sec (22.9-36.1)
[2020-02-11 04:27] LABS: Band 7 % (5-11); Basophilic Stippling SLIGHT = 1-2 cells (100X) (None Seen); Eosinophils 3 % (0-10); Hemoglobin 7.3 g/dL (12.0-16.0); Hypochromia SLIGHT = 6-15 cells (100X) (0-5/hpf); INR-International Normal Ratio 1.2; Lymphocytes 24 % (21-51); MDiff Complete? YES; Mean Corpuscular HGB CONC 33.4 g/dL (32.0-36.0); Mean Corpuscular Hemoglobin 30.8 pg (27.0-31.0); Mean Corpuscular Volume 92.2 fL (78.0-98.0); Mean Platelet Volume 7.7 fL (7.4-10.4); Metamyelocyte 2 % (0-0); Microcytosis MODERATE=15-30 cells (100X) (0-5/hpf); Monocytes 3 % (0-10); Neutrophil 61 % (42-75); Platelet Count 117 thou/uL (130-400); Platelet Morphology Comment Appears Decreased; Prothrombin Time 14.8 sec (12.0-14.7); RBC Distribution Width 11.9 % (11.5-14.5); Red Blood Cell (RBC) Count 2.38 mill/uL (4.20-5.40); White Blood Cell (WBC) Count 3.5 thou/uL (4.8-10.8)
[2020-02-11 04:33] LABS: ALT (SGPT) 26 U/L (8-55); AST (SGOT) 24 U/L (5-34); Albumin 3.8 g/dL (3.4-4.8); Alkaline Phosphatase 84 U/L (40-110); Anion Gap 19 mmol/L (10-20); BUN (Urea Nitrogen) 26 mg/dL (9.8-20.1); Bilirubin, Total 0.8 mg/dL (0.2-1.2); Calc. Creatinine Clearance 17 mL/min (70-130); Calcium 9.1 mg/dL (7.8-10.44); Carbon Dioxide 27 mmol/L (23-31); Chloride 94 mmol/L (98-107); Estimated GFR-MDRD 9; Globulin 3.2 g/dL (2.4-3.5); Glucose 163 mg/dL (83-110); Potassium 3.9 mmol/L (3.5-5.1); Sodium 136 mmol/L (136-145)
--- NOTE | 2020-02-11 07:47 | RAD ---
Chest AP view INDICATION: Shortness of breath COMPARISON: January 23, 2020 FINDINGS: Lungs: Chronic lung changes are stable Cardiac silhouette: [id number] cardiomegaly is stable Pulmonary vasculature: There is mild pulmonary vascular congestion Pleural spaces: No yasmeen pleural effusion or pneumothorax is demonstrated Upper abdomen: No abnormality seen. Osseous structures: No acute osseous abnormality. Additional findings: None. IMPRESSION: No acute cardiopulmonary abnormality.
--- NOTE | 2020-02-11 08:43 | CON ---
DATE OF CONSULTATION: 02/11/2020 HISTORY OF PRESENT ILLNESS: Ms. Daniels is a 79-year-old white female sent for symptomatic anemia-hemoglobin of about 6.0. She was recently admitted for the same problem of symptomatic anemia. She had a GI workup which was essentially negative with no active GI bleed. The patient was also sent to her kindergartners helper, Dr. Welsh for further workup of this anemia. She was admitted last night due to the symptomatic anemia. She has received 2 units of packed RBC. We are awaiting for the repeat CBC. The patient complains of being tired. We are being consulted for management of her ESRD as well as maintenance hemodialysis. REVIEW OF SYSTEMS: No chest pain. Positive for generalized malaise. Denies any melena or hematochezia. No diarrhea. No constipation. Appetite and energy level are decreased. No headache. No syncopal episode. No dysuria. No urinary frequency. No abdominal pain. No hematemesis. No fever or chills. No chest pain. No shortness of breath. Occasional joint pains. PAST MEDICAL HISTORY: ESRD from presumed diabetic nephropathy, type 2 diabetes mellitus, hypertension, obstructive sleep apnea, history of right renal cancer-in remission. PAST SURGICAL HISTORY: Status post partial nephrectomy, status post cuffed hemodialysis catheter placement, status post PD catheter placement and subsequent removal and revision, status post AV fistula placement, status post upper and lower GI endoscopy, status post hysterectomy. SOCIAL HISTORY: The patient lives in [place]. . She is a retired teacher, education master's degree. Two children with one . No IV drug abuse. Status post multiple blood transfusion. Sedentary lifestyle. Alcohol, rare. No history of smoking. FAMILY HISTORY: No family history of ESRD. ALLERGIES: HYDRALAZINE AND PENICILLIN. TRAUMA: Status post fall with right ankle fracture. IMMUNIZATION: Up-to-date. HOSPITALIZATIONS: Please see past medical history. PHYSICAL EXAMINATION: VITAL SIGNS: Blood pressure is noted at 154/60, heart rate 66, respiratory rate 20, temperature 99.9, O2 saturation 97%. GENERAL: Noted to be awake, alert, sitting comfortable, obese, not in distress. SKIN: Adequate turgor. HEENT: Slightly pale conjunctivae. Anicteric sclerae. NECK: No neck mass. No carotid bruits. No JVD. CHEST: No deformities. LUNGS: Clear breath sounds. HEART: Normal sinus rhythm. No murmur. No gallops. No rubs. ABDOMEN: Globular, soft, nontender, no masses. EXTREMITIES: No edema, no deformities. MEDICATIONS: February 11, 2020 1. Neurontin 300 mg at bedtime. 2. Protonix 40 mg daily. 3. Renvela 800 mg 2 tablets t.i.d. with meals. 4. Nephro-Davi one tablet once a day. LABORATORY DATA: February 11, 2020, white count 3.5, hemoglobin 7.3. Sodium 136, potassium 3.9, chloride 94, carbon dioxide 27, BUN 26, creatinine 4.73, glucose 163, calcium 9.1. AST 24, ALT 26, alkaline phosphatase 84, albumin 3.8. Chest x-ray, no CHF or infiltrates. ASSESSMENT AND PLAN: 1. Recurrent symptomatic anemia-previous GI workup was said to be negative. Consider reconsulting GI for further evaluation. The patient has been seen by her kindergartners helper, currently also undergoing workup. We will resume back the patient's Epogen. 2. Endstage renal disease, stable. No indication for an emergent hemodialysis today. Continue Monday, Monday, and Monday hemodialysis with fluid removal. 3. Hyperphosphatemia, currently on Renvela. Job ID: [id number]
[2020-02-11] MEDS ORDERED: EPOETIN ALFA-EPBX (ESRD) 4,000 UNIT/ML VIAL SC SCH (09:00)
[2020-02-11] MEDS: Sevelamer Carbonate 800 MG TAB PO SCH ×3 (09:02→15:42)
[2020-02-11] MEDS: Folic Acid/Vit B Comp W-C PO SCH (09:03)
[2020-02-11] MEDS ORDERED: Midodrine HCl 5 MG TAB PO PRN (10:54)
--- NOTE | 2020-02-11 11:58 | CT ---
CT OF THE ABDOMEN AND PELVIS WITHOUT IV CONTRAST INDICATION: Low hemoglobin; history of partial right nephrectomy COMPARISON: Noncontrast CT the abdomen and pelvis from November 08, 2014. FINDINGS: The lack of IV contrast limits evaluation of the solid organs of the abdomen and pelvis. ABDOMEN: Lung bases: There is stable mild subsegmental volume loss in the lingula and right middle lobe. Liver: Liver remains lobulated in appearance. No definite focal hepatic lesion is evident grossly. Gallbladder: Contracted with gallstones Pancreas: Normal. Adrenal glands: Normal. Spleen: Enlarged measuring 14.5 cm. This is slightly less prominent than on the comparison. Kidneys and ureters: Both kidneys are atrophic. There is exophytic lesions involving both kidneys man y of which are hyperdense and difficulty fully characterized current study. One of the largest measures 3 cm on Cipro pole left kidney. One of the largest involving the right kidney measures 1.5 c m. The extent of the renal atrophy has significantly progressed from the prior exam. Vasculature: Mild vascular Lymph nodes:No lymphadenopathy. Free fluid in abdomen:No free fluid is evident. PELVIS: Small and large bowel: Normal Appendix:Normal Bladder: Decompressed Rectal and perirectal soft tissues:Normal. Reproductive structures: Surgically absent Free fluid in pelvis: No free fluid is evident. Lymphadenopathy pelvis: No lymphadenopathy is evident. Osseous structures: There is a chronic-appearing wedge compression fracture involving T12 which is st able. There is mild thoracolumbar scoliosis. There is scattered degenerative and osteoarthritic changes. Soft tissues:There is a fat-containing umbilicus hernia IMPRESSION: 1. No retroperitoneal hematoma demonstrated. 2. Worsening atrophy of both kidneys with exophytic slightly hyperdense lesions possibly related to p roteinaceous cyst. Follow-up ultrasound is recommended. 3. Slightly less prominent splenomegaly. 4. Stable chronic T12 wedge compression fracture. 5. Cholelithiasis.
[2020-02-11 13:33] LABS: SARS-CoV-2 MS2 Positive; SARS-CoV-2 N Gene Negative; SARS-CoV-2 S Gene Negative; SARS-CoV-2 by NAA Not Detected (NotDetected); SARS-CoV-2 orf1ab Negative
[2020-02-11 14:49] LABS: Reticulocyte Count 0.5 % (0.5-1.5)
--- NOTE | 2020-02-11 17:13 | PDOC.HOSPP ---
- Subjective Encounter Date: 02/11/20 Encounter Time: 10:30 Subjective: pt up in bed no complains - Objective Vital Signs & Weight: Vital Signs (12 hours) Temp Pulse Resp BP BP Pulse Ox 02/11/20 15:36 97.8 F 68 16 167/67 H 96 02/11/20 11:44 99.0 F 68 11 L 160/68 H 94 L 02/11/20 07:57 97 02/11/20 06:43 99.9 F H 66 20 154/60 H 97 02/11/20 06:41 99.9 F H Weight Admit Weight 249 lb 1.6 oz Weight 249 lb 1.6 oz Most Recent Monitor Data Heart Rate from ECG 66 NIBP 154/60 Respiration from ECG 20 I&O: 02/10/20 02/11/20 02/12/20 06:59 06:59 06:59 Intake Total 800 Balance 800 Result Diagrams: 02/11/20 09:17 02/11/20 03:37 Hospitalist ROS - Review of Systems Cardiovascular: denies: chest pain, palpitations, orthopnea, paroxysmal noc. dyspnea, edema, light headedness, other Gastrointestinal: denies: nausea, vomiting, abdominal pain, diarrhea, constipati on, melena, hematochezia, other Genitourinary: denies: dysuria, frequency, incontinence, hematuria, retention, other - Medication Medications: Active Medications Generic Name Dose Route Start Last Admin Trade Name Freq PRN Reason Stop Dose Admin Acetaminophen 650 mg 02/10/20 20:01 02/10/20 23:48 Acetaminophen 325 Mg Tab PO 650 mg Q4H PRN Administration Headache/Fever/Mild Pain (1-3) Epoetin Jesus Alberto-epbx 7,500 unit 02/11/20 09:00 02/11/20 09:04 Epoetin Jesus Alberto-Epbx (Esrd) 4,000 Unit/Ml Vial SC 7,500 unit Q7D KHANG Administration Pantoprazole Sodium 40 mg 02/11/20 09:00 02/11/20 09:03 Pantoprazole 40 Mg Tab PO 40 mg DAILY KHANG Administration Sevelamer Carbonate 1,600 mg 02/11/20 08:00 02/11/20 15:42 Sevelamer Carbonate 800 Mg Tab PO 1,600 mg TID-WM KHANG Administration Vitamin B Complex/Vit C/Folic Acid 1 tab 02/11/20 09:00 02/11/20 09:03 Folic Acid/Vit B Comp W-C PO 1 tab DAILY KHANG Administration - Exam Respiratory: negative: CTAB, no wheezes, no rales, no ronchi, normal chest expansion, no tachypnea, normal percussion, rales, rhonchi, tachypneic, wheezes Gastrointestinal: negative: soft, non-tender, non-distended, normal bowel sounds, no palpable masses, no hepatomegaly, no splenomegaly, no bruit, no guarding, no rigidity, tender to palpation, distended, diminished bowl sounds, voluntary guarding Extremities: negative: no cyanosis, no clubbing, no edema, 1+ LE edema, 2+ LE edema, clubbing Hosp A/P (1) End stage renal disease on dialysis Code(s): N18.6 - END STAGE RENAL DISEASE; Z99.2 - DEPENDENCE ON RENAL DIALYSIS Status: Acute (2) GERD (gastroesophageal reflux disease) Code(s): K21.9 - GASTRO-ESOPHAGEAL REFLUX DISEASE WITHOUT ESOPHAGITIS Status: Acute (3) Obstructive sleep apnea on CPAP Code(s): G47.33 - OBSTRUCTIVE SLEEP APNEA (ADULT) (PEDIATRIC); Z99.89 - DEPENDENCE ON OTHER ENABLING MACHINES AND DEVICES Status: Acute (4) Symptomatic anemia Code(s): D64.9 - ANEMIA, UNSPECIFIED Status: Acute - Plan will get ct abd/pel to rule of bleed. pt s/p 2units of blood.
--- NOTE | 2020-02-11 20:18 | CON ---
DATE OF CONSULTATION: REASON FOR CONSULTATION: Anemia. HISTORY OF PRESENT ILLNESS: Ms. Daniels is a pleasant 79-year-old female with a past medical history of kidney cancer status post right nephrectomy in 2006. She also has end-stage renal disease, on dialysis. She was recently admitted in early January for severe symptomatic anemia and had a hemoglobin of 6.5. She underwent endoscopy, which was essentially negative. She did have a small polyp removed. She was transfused 3 units of packed RBCs and eventually discharged home to follow up. She did see Dr. Welsh in the outpatient setting on February 05. She was to have recommended labs drawn, but presented to the emergency room once again with weakness. Hemoglobin was 6.5, and she was admitted for further workup. She is seen at bedside with her present. She has been transfused 2 units of packed RBCs. She complains of weakness, but no chest pain, shortness of breath or abdominal discomfort. She denies any blood in her stool. PAST MEDICAL HISTORY: 1. End-stage renal disease, on dialysis. 2. History of kidney cancer, status post right nephrectomy. 3. Chronic anemia. 4. Hypertension. 5. Asthma. 6. Sleep apnea. PAST SURGICAL HISTORY: 1. Right partial nephrectomy. 2. Hysterectomy. 3. Hemodialysis fistula. 4. Ankle surgery. ALLERGIES: AMOXICILLIN AND HYDRALAZINE. HOME MEDICATIONS: 1. Folic acid. 2. Gabapentin. 3. Prilosec. 4. Renvela. 5. Midodrine. FAMILY HISTORY: Noncontributory. SOCIAL HISTORY: , lives with her spouse. No alcohol, tobacco or illicit drug use. REVIEW OF SYSTEMS: A 10-point review of systems is negative except for noted in HPI. PHYSICAL EXAMINATION: VITAL SIGNS: Temperature 99.0, pulse is 68, respiratory rate is 11, and BP is 160/68. She is 94% on nasal cannula. HEENT: Normocephalic and atraumatic. Pupils are equal and reactive to light. NECK: Supple. CV: Regular rate and rhythm. LUNGS: Clear. ABDOMEN: Obese and nontender. Bowel sounds are positive. EXTREMITIES: No clubbing or cyanosis. SKIN: No rash. HEMATOLOGICAL: No petechiae or purpura. NEUROLOGICAL: Nonfocal. PERTINENT LABORATORY DATA AND X-RAYS: Current WBCs 3.5, hemoglobin 8, hematocrit 22.6, and platelet count 117,000. She has 61% neutrophils, 7% bands, 24% lymphocytes, and retic count 0.5. PT is 14.8, INR is 1.2, and PTT is 29.8. Sodium 136, potassium 3.9, chloride 94, CO2 is 27, BUN is 26, creatinine 4.73, and calcium 9.1. Bilirubin is 0.8, AST is 24, ALT is 26, alk phos is 84. Serum total protein 7, albumin 3.8, and globulin 3.2. CT scan of the chest, abdomen, and pelvis showed enlarged spleen measuring 14.5-cm, kidney atrophy, and stable T12 wedge compression fracture. ASSESSMENT: 1. Leukopenia. 2. Severe symptomatic anemia. 3. Thrombocytopenia, likely secondary to mild splenomegaly. DISCUSSION: The patient has had a GI workup, which is essentially negative. She is on dialysis and receives Epogen with treatment. We would recommend increasing her weekly dose. She has seen Dr. Welsh last week with recommendations for labs. We will draw these labs while she is in the hospital and to include JUNIOR, RA, and SPEP. She has been transfused with a good response. Her iron studies show chronic disease. We will follow up on these labs and follow her hospital course. Thank you for the consult. Job ID: [id number]
[2020-02-11] MEDS: Gabapentin 300 MG CAP PO SCH (20:29)
[2020-02-12 07:02] LABS: Hemoglobin 7.8 g/dL (12.0-16.0); Mean Corpuscular HGB CONC 34.7 g/dL (32.0-36.0); Mean Corpuscular Hemoglobin 32.2 pg (27.0-31.0); Mean Corpuscular Volume 92.6 fL (78.0-98.0); Mean Platelet Volume 7.5 fL (7.4-10.4); Platelet Count 97 thou/uL (130-400); RBC Distribution Width 11.9 % (11.5-14.5); Red Blood Cell (RBC) Count 2.42 mill/uL (4.20-5.40); White Blood Cell (WBC) Count 3.1 thou/uL (4.8-10.8)
[2020-02-12 07:09] LABS: Anion Gap 20 mmol/L (10-20); BUN (Urea Nitrogen) 46 mg/dL (9.8-20.1); Calc. Creatinine Clearance 12 mL/min (70-130); Calcium 8.6 mg/dL (7.8-10.44); Carbon Dioxide 25 mmol/L (23-31); Chloride 95 mmol/L (98-107); Estimated GFR-MDRD 6; Glucose 180 mg/dL (83-110); Sodium 136 mmol/L (136-145)
[2020-02-12] MEDS: Sevelamer Carbonate 800 MG TAB PO SCH ×3 (07:32→17:15)
[2020-02-12 07:39] LABS: Band 8 % (5-11); Eosinophils 1 % (0-10); Lymphocytes 29 % (21-51); MDiff Complete? YES; Monocytes 10 % (0-10); Neutrophil 49 % (42-75); Nucleated RBC 1 % (0); Platelet Morphology Comment Appears Decreased; Polychromasia SLIGHT = 2-3 cells (100X) (0-2/hpf); Reactive Lymphocytes 1 % (0-10)
--- NOTE | 2020-02-12 08:25 | PRG ---
DATE OF SERVICE: 02/12/2020 SERVICE: Renal Medicine. SUBJECTIVE: Ms. Daniels is a 79-year-old white female with ESRD and was admitted due to symptomatic anemia. She has received several units of packed RBC. GI has reevaluated the patient. The recommendation is to consider a video endoscopy as an outpatient. Hematology has been reconsulted for this chronic anemia. She voices no new complaints. We are following up this patient for maintenance hemodialysis. The patient is due for dialysis this morning. We have scheduled her for her regular 3-hour hemodialysis. The plan is fluid removal around 2 L as tolerated. No complaints of chest pain or shortness of breath. She is feeling better. OBJECTIVE: VITAL SIGNS: Blood pressure 140/63, heart rate 75, respiratory rate 16, temperature 99.8, O2 saturation 94%. GENERAL: The patient is awake, alert, comfortable, not in distress. SKIN: Adequate turgor. HEENT: She has slightly pale conjunctivae. Anicteric sclerae. NECK: No neck mass. No carotid bruits. No JVD. CHEST: No deformities. LUNGS: Clear breath sounds. HEART: Normal sinus rhythm. No murmurs. No gallops. No rubs. ABDOMEN: Globular, soft, nontender. No masses. EXTREMITIES: No edema. No deformities. MEDICATIONS: Medications of February 12, 2020, reviewed. LABORATORY DATA: Laboratories Of February 12, 2020: White count 3.1, hemoglobin 7.8, hematocrit 22.4. Sodium 136, potassium 4, chloride 95, carbon dioxide 25, BUN 46, creatinine 6.87, glucose 180, calcium 8.6. LDH 294. INR 1.2. ASSESSMENT AND PLAN: 1. Symptomatic anemia, p.r.n. blood transfusion. The patient will also be maintained on her weekly Epogen. Current workup for her anemia is being done. The plan is for her to get a video endoscopy as well as further evaluation by Hematology. 2. End-stage renal disease. She is currently on hemodialysis. Tolerating said treatment. We will attempt to remove around 2 L only as tolerated by the patient. Overall, prognosis remains guarded with this patient. Continue supportive care. We will recheck CBC in a.m. Job ID: [id number]
[2020-02-12 10:17] LABS: #Eosinphils 0.1 thou/uL (0.0-0.7); #Lymphocytes 0.9 thou/uL (1.20-3.40); #Monocytes 0.2 thou/uL (0.11-0.59); #Neutrophils 2.2 thou/uL (1.40-6.50); %Basophils 0.1 % (0.0-1.0); %Eosinophils 2.2 % (0.0-10.0); %Lymphocytes 26.8 % (21.0-51.0); %Monocytes 6.2 % (0.0-10.0); %Neutrophils 64.6 % (42.0-75.0); Hemoglobin 7.1 g/dL (12.0-16.0); Mean Corpuscular HGB CONC 33.9 g/dL (32.0-36.0); Mean Corpuscular Volume 91.3 fL (78.0-98.0); Mean Platelet Volume 7.7 fL (7.4-10.4); Platelet Count 96 thou/uL (130-400); RBC Distribution Width 12.1 % (11.5-14.5); White Blood Cell (WBC) Count 3.5 thou/uL (4.8-10.8)
--- NOTE | 2020-02-12 11:45 | PDOC.HOSPP ---
- Subjective Encounter Date: 02/12/20 Encounter Time: 11:15 Subjective: pt up in dialysis. she still feels tired. - Objective Vital Signs & Weight: Vital Signs (12 hours) Temp Pulse Resp BP BP Pulse Ox 02/12/20 11:07 97.4 F L 60 17 133/57 L 94 L 02/12/20 07:33 99.8 F H 75 16 140/63 94 L 02/12/20 03:43 98.7 F 61 16 111/50 L 93 L Weight Admit Weight 249 lb 1.6 oz Weight 249 lb 1.6 oz Most Recent Monitor Data Heart Rate from ECG 66 NIBP 154/60 Respiration from ECG 20 I&O: 02/11/20 02/12/20 02/13/20 06:59 06:59 06:59 Intake Total 800 937 Output Total 0 Balance 800 937 Result Diagrams: 02/12/20 10:05 02/12/20 06:37 Hospitalist ROS - Review of Systems Cardiovascular: denies: chest pain, palpitations, orthopnea, paroxysmal noc. dyspnea, edema, light headedness, other Gastrointestinal: denies: nausea, vomiting, abdominal pain, diarrhea, constipation, melena, hematochezia, other Genitourinary: denies: dysuria, frequency, incontinence, hematuria, retention, other - Medication Medications: Active Medications Generic Name Dose Route Start Last Admin Trade Name Freq PRN Reason Stop Dose Admin Acetaminophen 650 mg 02/10/20 20:01 02/10/20 23:48 Acetaminophen 325 Mg Tab PO 650 mg Q4H PRN Administration Headache/Fever/Mild Pain (1-3) Epoetin Jesus Alberto-epbx 7,500 unit 02/11/20 09:00 02/11/20 09:04 Epoetin Jesus Alberto-Epbx (Esrd) 4,000 Unit/Ml Vial SC 7,500 unit Q7D KHANG Administration Gabapentin 300 mg 02/11/20 21:00 02/11/20 20:29 Gabapentin 300 Mg Cap PO 300 mg HS KHANG Administration Midodrine 10 mg 02/11/20 10:54 02/12/20 08:44 Midodrine Hcl 5 Mg Tab PO 10 mg MWF PRN Administration Hemodialysis Pantoprazole Sodium 40 mg 02/11/20 09:00 02/11/20 09:03 Pantoprazole 40 Mg Tab PO 40 mg DAILY KHANG Administration Sevelamer Carbonate 1,600 mg 02/11/20 08:00 02/12/20 07:32 Sevelamer Carbonate 800 Mg Tab PO 1,600 mg TID-WM KHANG Administration Vitamin B Complex/Vit C/Folic Acid 1 tab 02/11/20 09:00 02/11/20 09:03 Folic Acid/Vit B Comp W-C PO 1 tab DAILY KHANG Administration - Exam Heart: negative: RRR, no murmur, no gallops, no rubs, normal peripheral pulses, irregular, diminshed peripheral pulses, murmur present, II/IV, III/IV Respiratory: negative: CTAB, no wheezes, no rales, no ronchi, normal chest expansion, no tachypnea, normal percussion, rales, rhonchi, tachypneic, wheezes Gastrointestinal: negative: soft, non-tender, non-distended, normal bowel sounds, no palpable masses, no hepatomegaly, no splenomegaly, no bruit, no guarding, no rigidity, tender to palpation, distended, diminished bowl sounds, voluntary guarding Extremities: 1+ LE edema Hosp A/P (1) End stage renal disease on dialysis Code(s): N18.6 - END STAGE RENAL DISEASE; Z99.2 - DEPENDENCE ON RENAL DIALYSIS Status: Acute (2) GERD (gastroesophageal reflux disease) Code(s): K21.9 - GASTRO-ESOPHAGEAL REFLUX DISEASE WITHOUT ESOPHAGITIS Status: Acute (3) Obstructive sleep apnea on CPAP Code(s): G47.33 - OBSTRUCTIVE SLEEP APNEA (ADULT) (PEDIATRIC); Z99.89 - DEPENDENCE ON OTHER ENABLING MACHINES AND DEVICES Status: Acute (4) Symptomatic anemia Code(s): D64.9 - ANEMIA, UNSPECIFIED Status: Acute - Plan will get ct abd/pel to rule of bleed. pt s/p 2units of blood. 02/11 will check renal ultrasound. She had two hh checked today and the second one was low. will recheck later today if low then will transfuse. will talk with hematology she will most likely need a bone marrow. vit b12 done was normal.
[2020-02-12] MEDS: Folic Acid/Vit B Comp W-C PO SCH (12:49)
--- NOTE | 2020-02-12 14:17 | ULT ---
Renal ultrasound: 02/12/2020 COMPARISON: None available HISTORY: Renal cell carcinoma status post partial nephrectomy on the right, abnormal CT of the abdome n technique: Multiplanar grayscale sonographic imaging of the kidneys and urinary bladder obtained. FINDINGS: This study is technically limited secondary to marked atrophy of the kidneys and patient phuong dy habitus. The right kidney is vaguely visualized on this examination demonstrating increased echogenicity and cortical thinning consistent with end-stage renal disease. There is a vague hypoecho ic lesion in the inferior/medial aspect of the right kidney measuring 1.5 x 1.5 cm, which may represent a small suboptimally assessed cyst. Left kidney is vaguely visualized with cortical thinning and increased echogenicity consistent with r enal medical disease. There is a hypoechoic lesion measuring 2.6 x 2.0 x 2.3 cm associated with the lateral midportion of the left kidney. An additional similar smaller medial left renal lesion is note d measuring in the 1.6 cm range. The spleen is enlarged measuring 16.4 cm. Urinary bladder is nonvisualized. IMPRESSION: Suboptimal examination secondary to body habitus and markedly atrophic kidneys associated with the patient's history of end-stage renal disease. There are hypoechoic lesions within both kidneys, not optimally assessed on this examination secondary to technical factors, likely representi ng cysts. Recommend follow-up ultrasound in 6 months to document stability.
--- NOTE | 2020-02-12 15:02 | PDOC.MOPN ---
Interval History: feeling better today, slept well. dialysis done today - Vital Signs Vital Signs: Vital Signs (12 hours) Temp Pulse Resp BP BP Pulse Ox 02/12/20 12:45 98.9 F 65 16 130/61 94 L 02/12/20 11:07 97.4 F L 60 17 133/57 L 94 L 02/12/20 07:33 99.8 F H 75 16 140/63 94 L 02/12/20 03:43 98.7 F 61 16 111/50 L 93 L Weight Admit Weight 249 lb 1.6 oz Weight 249 lb 1.6 oz Most Recent Monitor Data Heart Rate from ECG 66 NIBP 154/60 Respiration from ECG 20 - Physical Exam General: Alert, Oriented x3, No acute distress HEENT: Atraumatic, PERRLA, EOMI, Mucous membr. moist/pink Lungs: Clear to auscultation Cardiovascular: Regular rate Abdomen: Normal bowel sounds Neurological: Normal speech Psych/Mental Status: Mental status NL - Labs Result Diagrams: 02/12/20 10:05 02/12/20 06:37 Lab results: Laboratory Results - last 24 hr 02/12/20 10:05: WBC 3.5 L, RBC 2.30 L, Hgb 7.1 L, Hct 21.0 L, MCV 91.3, MCH 31.0, MCHC 33.9, RDW 12.1, Plt Count 96 L, MPV 7.7, Neutrophils % 64.6, Neutrophils % (Manual) Not Reportable, Lymphocytes % 26.8, Monocytes % 6.2, Eosinophils % 2.2, Basophils % 0.1, Neutrophils # 2.2, Lymphocytes # 0.9 L, Monocytes # 0.2, Eosinophils # 0.1, Basophils # 0.0 02/12/20 06:37: WBC 3.1 L, RBC 2.42 L, Hgb 7.8 L, Hct 22.4 L, MCV 92.6, MCH 32.2 H, MCHC 34.7, RDW 11.9, Plt Count 97 L, MPV 7.5, Neutrophils % (Manual) 49, Band Neuts % (Manual) 8, Lymphocytes % (Manual) 29, Reactive Lymphs % 1, Monocytes % (Manual) 10, Eosinophils % (Manual) 1, Basophils % (Manual) 2, Lymphocytes # Not Reportable, Nucleated RBCs # (Man) 1 H, Plt Morphology Comment Appears Decreased L, Polychromasia SLIGHT = 2-3 cells 02/12/20 06:37: Sodium 136, Potassium 4.0, Chloride 95 L, Carbon Dioxide 25, Anion Gap 20, BUN 46 H, Creatinine 6.87 H, Estimated GFR (MDRD) 6, Glucose 180 H, Calcium 8.6 02/11/20 15:21: Lactate Dehydrogenase 294 H 02/11/20 15:21: Uric Acid 4.7 Status: lab reviewed by me A/P - Problem (1) End stage renal disease on dialysis Current Visit: No Code(s): N18.6 - END STAGE RENAL DISEASE; Z99.2 - DEPENDENCE ON RENAL DIALYSIS Status: Acute (2) History of renal cell cancer Current Visit: No Code(s): Z85.528 - PERSONAL HISTORY OF OTHER MALIGNANT NEOPLASM OF KIDNEY Status: Acute (3) Symptomatic anemia Current Visit: No Code(s): D64.9 - ANEMIA, UNSPECIFIED Status: Acute - Plan Plan: 1. Hgb trending down 2. bone marrow biopsy per Dr. Wlesh 3. Recheck CBC in am, transfuse for hgb < 7.0
[2020-02-12 17:14] LABS: Hemoglobin 8.7 g/dL (12.0-16.0); Mean Corpuscular HGB CONC 34.6 g/dL (32.0-36.0); Mean Corpuscular Hemoglobin 31.4 pg (27.0-31.0); Mean Corpuscular Volume 90.8 fL (78.0-98.0); Mean Platelet Volume 7.9 fL (7.4-10.4); Platelet Count 145 thou/uL (130-400); Red Blood Cell (RBC) Count 2.77 mill/uL (4.20-5.40); White Blood Cell (WBC) Count 5.2 thou/uL (4.8-10.8)
[2020-02-12 17:33] LABS: Band 11 % (5-11); Eosinophils 1 % (0-10); Lymphocytes 18 % (21-51); MDiff Complete? YES; Metamyelocyte 1 % (0-0); Monocytes 4 % (0-10); Myelocyte 1 % (0-0); Neutrophil 64 % (42-75); Platelet Morphology Comment Appears Adequate; Polychromasia SLIGHT = 2-3 cells (100X) (0-2/hpf)
[2020-02-12] MEDS: Gabapentin 300 MG CAP PO SCH (21:54)
[2020-02-13 04:59] LABS: #Eosinphils 0.1 thou/uL (0.0-0.7); #Lymphocytes 1.1 thou/uL (1.20-3.40); #Monocytes 0.2 thou/uL (0.11-0.59); #Neutrophils 1.9 thou/uL (1.40-6.50); %Basophils 0.1 % (0.0-1.0); %Eosinophils 1.7 % (0.0-10.0); %Lymphocytes 34.4 % (21.0-51.0); %Monocytes 6.7 % (0.0-10.0); %Neutrophils 57.2 % (42.0-75.0); Hemoglobin 6.9 g/dL (12.0-16.0); Mean Corpuscular Hemoglobin 30.2 pg (27.0-31.0); Mean Corpuscular Volume 91.4 fL (78.0-98.0); Mean Platelet Volume 7.9 fL (7.4-10.4); Platelet Count 104 thou/uL (130-400); RBC Distribution Width 11.9 % (11.5-14.5); White Blood Cell (WBC) Count 3.3 thou/uL (4.8-10.8)
[2020-02-13] MEDS: Folic Acid/Vit B Comp W-C PO SCH (08:01)
[2020-02-13] MEDS: Sevelamer Carbonate 800 MG TAB PO SCH ×3 (08:04→16:00)
[2020-02-13 08:34] LABS: Hemoglobin 6.9 g/dL (12.0-16.0)
--- NOTE | 2020-02-13 09:19 | PRG ---
DATE OF SERVICE: 02/13/2020 SUBJECTIVE: Ms. Daniels is a 79-year-old white female with ESRD and admitted for symptomatic anemia. GI and Hematology have evaluated this patient. Recommendation by GI is eventually a video endoscopy. In addition, Hematology has recommended a bone marrow biopsy with this patient. She is receiving p.r.n. blood transfusion. We are following up this patient for management of her ESRD. She underwent hemodialysis yesterday without any difficulty. Fluid removal was done. The patient voices no new complaints. No chest pain or shortness of breath. OBJECTIVE: VITAL SIGNS: Blood pressure 136/65, heart rate 66, respiratory rate 16, temperature 98.5, and O2 saturation 93%. GENERAL: Awake, sitting comfortable, obese, not in distress. SKIN: Adequate turgor. HEENT: Pale conjunctivae. Anicteric sclerae. No neck mass. No carotid bruits. No JVD. CHEST: No deformities. LUNGS: Clear breath sounds. No wheezing. No crackles. HEART: Normal sinus rhythm. No murmurs, gallops, or rubs. ABDOMEN: Globular, soft, and nontender. No masses. EXTREMITIES: No edema. No deformities. MEDICATIONS: February 13, 2020, was reviewed. LABORATORY DATA: February 13, 2020, showed a white count 3.3 and hemoglobin 6.9. Sodium 136, potassium 4, chloride 95, carbon dioxide 25, BUN 46, creatinine 6.87, and calcium 8.6. ASSESSMENT AND PLAN: 1. Anemia-workup being done. The patient will have a planned bone marrow biopsy today. Hematology is following p.r.n. blood transfusion. We will schedule her for 2 units of packed RBC today. 2. End-stage renal disease, stable, tolerating current hemodialysis regimen. Continue Monday, Monday, and Monday hemodialysis. Again, fluid removal only as tolerated. We will continue the weekly Epogen with this patient. 3. Recheck CBC, basic metabolic profile in a.m. Job ID: [id number]
[2020-02-13] MEDS ORDERED: Fentanyl 100 MCG/2 ML VIAL ONE (10:42)
[2020-02-13] MEDS ORDERED: Midazolam HCl 2 mg/2 ml Vial ONE (10:42)
[2020-02-13] MEDS ORDERED: Sodium Bicarbonate 2.5 MEQ/5 ML VIAL ONE (11:29)
[2020-02-13 13:37] LABS: Alpha 1 0.4 g/dL (0.0-0.4); Beta 0.8 g/dL (0.7-1.3); Gamma 0.9 g/dL (0.4-1.8); Globulin, Total 3.1 g/dL (2.2-3.9); M-Spike Not Observed g/dL (Not Observed)
[2020-02-13] MEDS ORDERED: Acetaminophen 500 MG TAB PO PRN (14:14)
--- NOTE | 2020-02-13 15:03 | CT ---
CT GUIDED RIGHT ILIAC BONE MARROW ASPIRATION AND BIOPSY: CLINICAL HISTORY: Leukopenia, anemia. PROCEDURE: The procedure including the risks and complications were explained to the patient, and informed conse nt was obtained. The patient was placed on the CT scan table in the prone position. Noncontrasted CT images were obtained through the pelvis. An area was marked overlying the RIGHT kami c bone, and the area was meticulously prepped and draped in usual sterile fashion. The skin and subcutaneous tissues were infiltrated with buffered 1% lidocaine for local anesthesia. After a small skin incision was made, an 11-gauge needle was advanced and positioning was confirmed w ith axial CT images. Approximately 8 milliliters of bone marrow aspirate was obtained. The needle was then further advanced, and a bone marrow biopsy was performed. The needle was removed, and hemost asis was achieved with direct pressure. The patient tolerated the procedure well and without immediate complication. The patient was transported to radiology nurses holding area for further germain toring prior to discharge. IMPRESSION: Technically successful percutaneous bone marrow aspiration and biopsy. Pathology results are pending.
--- NOTE | 2020-02-13 15:29 | PDOC.MOPN ---
Interval History: BURNETTE, pain with bone marrow. no bleeding. - Vital Signs Vital Signs: Vital Signs (12 hours) Temp Pulse Pulse Resp BP BP BP 02/13/20 15:25 02/13/20 15:21 99.8 F H 80 16 151/62 H 02/13/20 12:45 98.7 F 59 L 16 144/65 H 02/13/20 12:30 98.8 F 58 L 16 141/64 H 02/13/20 12:00 98.6 F 60 16 107/46 L 02/13/20 07:19 98.5 F 66 16 02/13/20 04:00 97.2 F L 67 12 113/53 L BP Pulse Ox 02/13/20 15:25 94 L 02/13/20 15:21 02/13/20 12:45 02/13/20 12:30 02/13/20 12:00 93 L 02/13/20 07:19 136/65 93 L 02/13/20 04:00 92 L Weight Admit Weight 249 lb 1.6 oz Weight 249 lb 1.6 oz Most Recent Monitor Data Heart Rate from ECG 66 NIBP 154/60 Respiration from ECG 20 - Physical Exam General: Alert, Oriented x3, No acute distress HEENT: Atraumatic, PERRLA, EOMI, Mucous membr. moist/pink Lungs: Clear to auscultation, Normal air movement Cardiovascular: Regular rate, Normal S1, Normal S2, No murmurs, Gallops, Rubs Abdomen: Other (obese) Neurological: Normal speech Psych/Mental Status: Mental status NL - Labs Result Diagrams: 02/13/20 07:56 02/12/20 06:37 Lab results: Laboratory Results - last 24 hr 02/13/20 07:56: Hgb 6.9 L, Hct 20.1 L 02/13/20 04:30: WBC 3.3 L, RBC 2.30 L, Hgb 6.9 L, Hct 21.0 L, MCV 91.4, MCH 30.2, MCHC 33.0, RDW 11.9, Plt Count 104 L, MPV 7.9, Neutrophils % 57.2, Neutrophils % (Manual) Not Reportable, Lymphocytes % 34.4, Monocytes % 6.7, Eosinophils % 1.7, Basophils % 0.1, Neutrophils # 1.9, Lymphocytes # 1.1 L, Monocytes # 0.2, Eosinophils # 0.1, Basophils # 0.0 02/12/20 17:06: WBC 5.2, RBC 2.77 L, Hgb 8.7 L, Hct 25.2 L, MCV 90.8, MCH 31.4 H, MCHC 34.6, RDW 12.0, Plt Count 145, MPV 7.9, Neutrophils % (Manual) 64, Band Neuts % (Manual) 11, Lymphocytes % (Manual) 18 L, Monocytes % (Manual) 4, Eosinophils % (Manual) 1, Metamyelocytes % (Man) 1 H, Myelocytes % 1 H, Lymphocytes # Not Reportable, Plt Morphology Comment Appears Adequate, Polychromasia SLIGHT = 2-3 cells 02/11/20 15:21: Globulin 3.1, Albumin/Globulin Ratio 1.0, Iqptx-3-Lgmpzgtlo 0.4, Bvwfj-5-Ipvgmtxag 1.0, Beta Globulins 0.8, Gamma Globulins 0.9, M-Berto Not Observed, PEP Note , PEP Interpretation , Total Protein (JEN) 6.1, Albumin (JEN) 3.0 02/10/20 17:16: Blood Type A POSITIVE, Antibody Screen POSITIVE H, Antibody Identification ANTI-CHECO, Crossmatch See Detail Status: lab reviewed by me A/P - Problem (1) End stage renal disease on dialysis Current Visit: No Code(s): N18.6 - END STAGE RENAL DISEASE; Z99.2 - DEPENDENCE ON RENAL DIALYSIS Status: Acute (2) History of renal cell cancer Current Visit: No Code(s): Z85.528 - PERSONAL HISTORY OF OTHER MALIGNANT NEOPLASM OF KIDNEY Status: Acute (3) Symptomatic anemia Current Visit: No Code(s): D64.9 - ANEMIA, UNSPECIFIED Status: Acute - Plan Plan: 1. transfuse 2 units PRBC today 2. await bone marrow results
--- NOTE | 2020-02-13 17:22 | PDOC.HOSPP ---
- Subjective Encounter Date: 02/13/20 Encounter Time: 10:30 Subjective: pt up in bed no complains - Objective Vital Signs & Weight: Vital Signs (12 hours) Temp Pulse Pulse Resp BP BP BP 02/13/20 15:58 98.4 F 71 16 114/59 L 02/13/20 15:43 97.7 F 72 16 111/48 L 02/13/20 15:25 02/13/20 15:21 99.8 F H 80 16 151/62 H 02/13/20 12:45 98.7 F 59 L 16 144/65 H 02/13/20 12:30 98.8 F 58 L 16 141/64 H 02/13/20 12:00 98.6 F 60 16 107/46 L 02/13/20 07:19 98.5 F 66 16 BP Pulse Ox 02/13/20 15:58 02/13/20 15:43 02/13/20 15:25 94 L 02/13/20 15:21 02/13/20 12:45 02/13/20 12:30 02/13/20 12:00 93 L 02/13/20 07:19 136/65 93 L Weight Admit Weight 249 lb 1.6 oz Weight 249 lb 1.6 oz Most Recent Monitor Data Heart Rate from ECG 66 NIBP 154/60 Respiration from ECG 20 I&O: 02/12/20 02/13/20 02/14/20 06:59 06:59 06:59 Intake Total 937 1280 1530 Output Total 0 0 Balance 937 1280 1530 Result Diagrams: 02/13/20 07:56 02/12/20 06:37 Hospitalist ROS - Review of Systems Cardiovascular: denies: chest pain, palpitations, orthopnea, paroxysmal noc. dyspnea, edema, light headedness, other Gastrointestinal: denies: nausea, vomiting, abdominal pain, diarrhea, constipation, melena, hematochezia, other Genitourinary: denies: dysuria, frequency, incontinence, hematuria, retention, other - Medication Medications: Active Medications Generic Name Dose Route Start Last Admin Trade Name Freq PRN Reason Stop Dose Admin Acetaminophen 650 mg 02/10/20 20:01 02/10/20 23:48 Acetaminophen 325 Mg Tab PO 650 mg Q4H PRN Administration Headache/Fever/Mild Pain (1-3) Epoetin Jesus Alberto-epbx 7,500 unit 02/11/20 09:00 02/11/20 09:04 Epoetin Jesus Alberto-Epbx (Esrd) 4,000 Unit/Ml Vial SC 7,500 unit Q7D KHANG Administration Gabapentin 300 mg 02/11/20 21:00 02/12/20 21:54 Gabapentin 300 Mg Cap PO 300 mg HS KHANG Administration Midodrine 10 mg 02/11/20 10:54 02/12/20 08:44 Midodrine Hcl 5 Mg Tab PO 10 mg MWF PRN Administration Hemodialysis Pantoprazole Sodium 40 mg 02/11/20 09:00 02/13/20 08:01 Pantoprazole 40 Mg Tab PO 40 mg DAILY KHANG Administration Sevelamer Carbonate 1,600 mg 02/11/20 08:00 02/13/20 16:00 Sevelamer Carbonate 800 Mg Tab PO 1,600 mg TID-WM KHANG Administration Vitamin B Complex/Vit C/Folic Acid 1 tab 02/11/20 09:00 02/13/20 08:01 Folic Acid/Vit B Comp W-C PO 1 tab DAILY KHANG Administration - Exam Neck: negative: supple, symmetric, no JVD, no thyromegaly, no lymphadenopathy, no carotid bruit, JVD Heart: negative: RRR, no murmur, no gallops, no rubs, normal peripheral pulses, irregular, diminshed peripheral pulses, murmur present, II/IV, III/IV Respiratory: negative: CTAB, no wheezes, no rales, no ronchi, normal chest expansion, no tachypnea, normal percussion, rales, rhonchi, tachypneic, wheezes Hosp A/P (1) End stage renal disease on dialysis Code(s): N18.6 - END STAGE RENAL DISEASE; Z99.2 - DEPENDENCE ON RENAL DIALYSIS Status: Acute (2) GERD (gastroesophageal reflux disease) Code(s): K21.9 - GASTRO-ESOPHAGEAL REFLUX DISEASE WITHOUT ESOPHAGITIS Status: Acute (3) Obstructive sleep apnea on CPAP Code(s): G47.33 - OBSTRUCTIVE SLEEP APNEA (ADULT) (PEDIATRIC); Z99.89 - DEPENDENCE ON OTHER ENABLING MACHINES AND DEVICES Status: Acute (4) Symptomatic anemia Code(s): D64.9 - ANEMIA, UNSPECIFIED Status: Acute - Plan will get ct abd/pel to rule of bleed. pt s/p 2units of blood. 02/11 will check renal ultrasound. She had two hh checked today and the second one was low. will recheck later today if low then will transfuse. will talk with hematology she will most likely need a bone marrow. vit b12 done was normal. 02/12 pt's hh is low, will transfuse. she is going for bone marrow today.
[2020-02-13] MEDS: Gabapentin 300 MG CAP PO SCH (20:59)
[2020-02-14 04:47] LABS: Reticulocyte Count 0.6 % (0.5-1.5)
[2020-02-14 05:04] LABS: Anion Gap 19 mmol/L (10-20); BUN (Urea Nitrogen) 54 mg/dL (9.8-20.1); Calc. Creatinine Clearance 12 mL/min (70-130); Calcium 8.8 mg/dL (7.8-10.44); Carbon Dioxide 23 mmol/L (23-31); Chloride 99 mmol/L (98-107); Estimated GFR-MDRD 6; Glucose 165 mg/dL (83-110); Sodium 137 mmol/L (136-145)
[2020-02-14 05:05] VITALS: BMI 42.5
[2020-02-14 05:08] LABS: Band 8 % (5-11); Eosinophils 5 % (0-10); Hemoglobin 9.2 g/dL (12.0-16.0); Lymphocytes 42 % (21-51); MDiff Complete? YES; Mean Corpuscular HGB CONC 34.4 g/dL (32.0-36.0); Mean Corpuscular Hemoglobin 31.5 pg (27.0-31.0); Mean Corpuscular Volume 91.5 fL (78.0-98.0); Monocytes 2 % (0-10); Neutrophil 43 % (42-75); Platelet Count 102 thou/uL (130-400); Platelet Morphology Comment Appears Decreased; RBC Distribution Width 12.6 % (11.5-14.5); Red Blood Cell (RBC) Count 2.92 mill/uL (4.20-5.40); White Blood Cell (WBC) Count 3.7 thou/uL (4.8-10.8)
[2020-02-14 05:23] LABS: Thyroid Stimulating Hormone 0.7918 uIU/mL (0.35-4.94)
[2020-02-14 06:10] LABS: Ferritin 2369.01 ng/mL (10-291)
[2020-02-14] MEDS: Folic Acid/Vit B Comp W-C PO SCH (07:56)
[2020-02-14] MEDS: Sevelamer Carbonate 800 MG TAB PO SCH ×3 (07:56→17:36)
--- NOTE | 2020-02-14 09:06 | PRG ---
DATE OF SERVICE: 02/14/2020 SUBJECTIVE: Ms. Daniels is a 79-year-old white female with ESRD and was admitted for symptomatic anemia. GI consultation and Hematology consultation have been done. The GI consultation recommended eventual video endoscopy as an outpatient. In addition, hematology has evaluated the patient and a bone marrow biopsy/aspiration was done yesterday. We are awaiting for the final histopath. The patient feels better. She received 2 units of packed RBC yesterday. She voices no new complaints. She denies any chest pain or shortness of breath. OBJECTIVE: VITAL SIGNS: Blood pressure 146/60, heart rate 65, respiratory rate 12, temperature 97.9, and O2 saturation 97%. GENERAL: The patient is awake, alert, sitting comfortable, obese, not in distress. SKIN: Adequate turgor. HEENT: Pinkish conjunctivae. Anicteric sclerae. NECK: No neck mass. No carotid bruits. No JVD. CHEST: No deformities. LUNGS: Clear breath sounds. No wheezing. No crackles. HEART: Normal sinus rhythm. No murmurs. No gallops. No rubs. ABDOMEN: Globular, soft, and nontender. No masses. EXTREMITIES: Trace edema. MEDICATIONS: Medications of February 14, 2020, were reviewed. LABORATORY DATA: Laboratories of February 14, 2020; white count 3.7, hemoglobin 9.2, and platelet count 102,000. Sodium 137, potassium 4, chloride 99, carbon dioxide 23, BUN 54, creatinine 6.81, glucose 165, calcium 8.8. Ferritin is 2369. TSH 0.7. Protein electrophoresis, no M-spike noted. ASSESSMENT AND PLAN: 1. Anemia, currently being worked up by Hematology. She underwent a bone marrow biopsy. We are awaiting histopath results. She will get p.r.n. blood transfusion. We are continue current dose of Epogen with this patient. 2. End-stage renal disease, stable. We are continuing current Monday, Monday, and Monday hemodialysis with this patient. Again, fluid removal only as tolerated by the patient. No changes will be made with her current hemodialysis regimen. We will recheck CBC and basic met in a.m. Job ID: [id number]
--- NOTE | 2020-02-14 13:42 | PDOC.MOPN ---
Interval History: dialysis this am, c/o fatigue - Vital Signs Vital Signs: Vital Signs (12 hours) Temp Pulse Resp BP BP Pulse Ox 02/14/20 12:39 97.9 F 71 16 144/62 H 97 02/14/20 07:02 97.9 F 65 12 146/60 H 97 02/14/20 03:31 98.1 F 59 L 18 120/56 L 95 02/14/20 01:46 96 Weight Admit Weight 249 lb 1.6 oz Weight 247 lb 8 oz Most Recent Monitor Data Heart Rate from ECG 66 NIBP 154/60 Respiration from ECG 20 - Physical Exam General: Alert, Oriented x3, No acute distress HEENT: Atraumatic, PERRLA, EOMI, Mucous membr. moist/pink Lungs: Clear to auscultation, Normal air movement Cardiovascular: Regular rate, Normal S1, Normal S2, No murmurs, Gallops, Rubs Abdomen: Other (obese) Neurological: Normal gait, Normal speech, Strength at 5/5 X4 ext, Normal tone, Sensation intact, Cranial nerves 3-12 NL, Reflexes 2+ Psych/Mental Status: Mental status NL, Mood NL - Labs Result Diagrams: 02/14/20 04:33 02/14/20 04:33 Lab results: Laboratory Results - last 24 hr 02/14/20 04:33: Retic Count 0.6, Immature Retic Fraction 0.355 02/14/20 04:33: Ferritin 2369.01 H, TSH 3rd Generation 0.7918 02/14/20 04:33: WBC 3.7 L, RBC 2.92 L, Hgb 9.2 L, Hct 26.7 L, MCV 91.5, MCH 31.5 H, MCHC 34.4, RDW 12.6, Plt Count 102 L, MPV 8.0, Neutrophils % (Manual) 43, Band Neuts % (Manual) 8, Lymphocytes % (Manual) 42, Monocytes % (Manual) 2, Eosinophils % (Manual) 5, Plt Morphology Comment Appears Decreased L 02/14/20 04:33: Sodium 137, Potassium 4.0, Chloride 99, Carbon Dioxide 23, Anion Gap 19, BUN 54 H, Creatinine 6.81 H, Estimated GFR (MDRD) 6, Glucose 165 H, Calcium 8.8 02/10/20 17:16: Blood Type A POSITIVE, Antibody Screen POSITIVE H, Antibody Identification ANTI-CHECO, Crossmatch See Detail Status: lab reviewed by me A/P - Problem (1) End stage renal disease on dialysis Current Visit: No Code(s): N18.6 - END STAGE RENAL DISEASE; Z99.2 - DEPENDENCE ON RENAL DIALYSIS Status: Acute (2) History of renal cell cancer Current Visit: No Code(s): Z85.528 - PERSONAL HISTORY OF OTHER MALIGNANT NEOPLASM OF KIDNEY Status: Acute (3) Symptomatic anemia Current Visit: No Code(s): D64.9 - ANEMIA, UNSPECIFIED Status: Acute (4) Acute myeloid leukemia Current Visit: Yes Code(s): C92.00 - ACUTE MYELOBLASTIC LEUKEMIA, NOT HAVING ACHIEVED REMISSION Status: Acute - Plan Plan: 1. 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 Patient agrees to transfer to [facility] for further workup and treatment 3. Case discussed with DR. Welsh, Dr. Lynch, and Dr. Thorpe
[2020-02-14 15:04] VITALS: BP 119/58; TEMP 98.2
[2020-02-14 15:18] LABS: ANA Symphony (Qualitative) Negative (Negative); ANA Symphony (Quantitative) 0.2 Ratio (< 0.7 Negative); dsDNA IgG Antibody 0.7 IU/mL (<10 Negative)
[2020-02-14 17:43] LABS: CCP IgG Antibody 1.2 EliAU/mL (<7 Negative); EliA RAS New Method **** NEW METHOD ****; Rheumatoid Factor IgA Antibody 4.8 IU/mL (<14 Negative); Rheumatoid Factor IgM Antibody Less than 0.5 IU/mL (<3.5 Negative)
--- NOTE | 2020-02-15 02:29 | DIS ---
DATE OF ADMISSION: 02/10/2020 DATE OF DISCHARGE: 02/14/2020 DISCHARGE DIAGNOSES: 1. Symptomatic anemia. 2. Pancytopenia. 3. Acute leukemia, new diagnosis. 4. End-stage renal disease, on dialysis. HOSPITAL COURSE: The patient is a very pleasant 79-year-old female, who initially presented to the hospital with symptomatic anemia. She was noted to have a hemoglobin of 6. She received 2 units of blood transfusion, continued to have low H and H. at this time, she received another 2, which is a total of 4 during this admission. She has also received multiple blood transfusions as an outpatient. The patient has had an EGD, endoscopy, and colonoscopy in last admission, which was appeared to be no significant signs of bleeding. She was seen by Hematology, underwent a bone marrow biopsy, which indicated acute blasts of 20%. At this time, she was transferred to a higher level of care. The patient also has a history of renal cancer, had a partial nephrectomy in 2006. DISCHARGE MEDICATIONS: Her home medications will be resumed which are : 1. Gabapentin 300 mg at bedtime. 2. Renvela mg t.i.d. 3. Omeprazole 20 mg at bedtime. 4. Midodrine as needed. The patient has a family history of possible thalassemia. PHYSICAL EXAMINATION: VITAL SIGNS: Temperature of 98.2, 80, 16, 96% on room air 119/58. GENERAL: She is awake, alert, and oriented x3. Does not appear in distress. CV: S1, S2 present. No murmurs, rubs, or gallops. DISPOSITION: She will be discharged to [facility] for acute treatment for leukemia and family updated, so is the patient. Job ID: [id number]
== END 2020-02-14 19:15 | disposition short-term general hospital (02) | DRG 834 ==
LOC: ERS 15:46 → ERHOLD 18:39 → 2NO 22:28
PROVIDERS: ADMIT Family Medicine; ATTEND Family Medicine
PROC: 30233N1 Transfusion of Nonautologous Red Blood Cells into Peripheral Vein, Percutaneous Approach (ICD-10-PCS; 2020-02-10)
PROC: 5A1D70Z Performance of Urinary Filtration, Intermittent, Less than 6 Hours Per Day (ICD-10-PCS; 2020-02-12)
PROC: 5A09357 Assistance with Respiratory Ventilation, Less than 24 Consecutive Hours, Continuous Positive Airway Pressure (ICD-10-PCS; 2020-02-12)
PROC: 07DR3ZX Extraction of Iliac Bone Marrow, Percutaneous Approach, Diagnostic (ICD-10-PCS; principal; 2020-02-13)
DX: C92.00 Acute myeloblastic leukemia, not having achieved remission (principal); N18.6 End stage renal disease; D61.818 Other pancytopenia; Z20.828 Contact with and (suspected) exposure to other viral communicable diseases; G47.33 Obstructive sleep apnea (adult) (pediatric); J45.909 Unspecified asthma, uncomplicated; K21.9 Gastro-esophageal reflux disease without esophagitis; E83.39 Other disorders of phosphorus metabolism; Z99.2 Dependence on renal dialysis; Z85.528 Personal history of other malignant neoplasm of kidney; Z90.5 Acquired absence of kidney; Z79.899 Other long term (current) drug therapy; Z90.710 Acquired absence of both cervix and uterus; Z88.0 Allergy status to penicillin; Z88.8 Allergy status to other drugs, medicaments and biological substances
CPT/HCPCS: 20225; 36415; 36430; 71045; 74176; 76770; 80048; 80053; 82728; 83520; 83615; 84165; 84443; 84550; 85025; 85046; 85060; 85097; 85610; 85730; 86038; 86200; 86225; 86850; 86870; 86900; 86901; 86922; 87635; 88184; 88185; 88237; 88264; 88280; 88305; 88311; 88313; 90935; 93005; 94660; 94760; 96374; G0257; J2250; J2405; J3010; P9016; Q5105; U0003